=== PATIENT | female | born 1975 | race Caucasian/White ===

== ENCOUNTER → 2017-09-22 16:13 | Outpatient (CLI) | payer BC, SELFPAY ==
[2017-08-19 14:47] VITALS: BP 112/72; BMI 32.3
[2017-09-22 18:41] LABS: Estradiol 176.7 pg/mL; Free T3 2.8 pg/mL (2.18-3.98); Thyroid Stim Hormone (TSH) 3.97 uIU/mL (0.358-3.74)
[2017-09-23 11:34] LABS: Progesterone Level 4.69 ng/mL (See Comment)
[2017-09-24 10:45] LABS: DHEA Sulfate 288.8 ug/dL (57.3-279.2)
== END ==
PROVIDERS: Family Provider Family Medicine; PCP Family Medicine; Visit Provider Specialist
DX: E27.9 Disorder of adrenal gland, unspecified (principal); E28.0 Estrogen excess; E03.8 Other specified hypothyroidism
CPT/HCPCS: 36415; 82627; 82670; 84144; 84403; 84439; 84443; 84481; 82626

== ENCOUNTER 2017-10-17 21:36 | Emergency (ER) | payer BC, SELFPAY ==
[2017-10-17 21:37] VITALS: BP 132/76; PULSE 81; PULSE 87; RESP 14; RESP 17; TEMP 36.9; O2SAT 99; BMI 33.5
--- NOTE | 2017-10-17 22:20 | US_ITS ---
US Head/Neck Soft Tissue INDICATION: LOWER BACK SWELLING JUST ABOVE SURGICAL SITE...S/P MICRODISECTOMY 4 DAYS AGO COMPARISON: None TECHNIQUE: Ultrasonographic grayscale and limited Doppler investigation of the soft tissues of the lower back, midline. FINDINGS: At the area of palpable bulging, the vascular technologist sonographer measures a 3.1 x 2.4 x 1.1 cm hypoechoic area just cranial to the surgical site and a 0.8 x 0.6 x 0.6 cm smaller similar appearing lesion cranial to the first area in midline. US/Ext Non Vasc Limited/Soft Tiss IMPRESSION: Findings are suggestive of 2 small fluid collections cranial to the surgical access. These may represent subcutaneous seromas, not unusual after spine surgery, follow-up as clinically warranted at [id number] Reported and signed by: Denisha Ruth MD Electronically Signed: Denisha Ruth MD at 22:55 EST Tel , Service support ,
--- NOTE | 2017-10-17 22:23 | ED.VISSUMM ---
- ER Visit Summary Date of Service: 10/17/17 Chief Complaint: [Back pain] History of Present Illness: The patient is a 42 F [who presents the emergency department with back pain. She had a microdiscectomy done on Tuesday. She has been having severe pain and right radicular symptoms since that time. She had the back surgery performed for a left radiculopathy. She has been urinating well bowel movements have been normal no numbness or weakness. She is been feeling poorly ever since surgery nauseated and dizzy she thinks this is from the pain medicine. She has had chills mainly associated with severe pain. No fevers at home. She has had no drainage from her incision however today she noticed a tender swollen mass on the upper right side of the incision. Spoke with the on-call physician who told her to come to the emergency department if she was having severe pain.] Physical Examination: [] 132/76 other vitals within normal limits Regular rate and rhythm no murmurs clear to auscultation bilaterally Examination of the back reveals a midline incision that is clean dry and intact with no drainage she is exquisitely tender surrounding the incision diffusely there is a fullness at the right upper border of the surgery site that is exquisitely tender but not very discrete. There is no overlying erythema or warmth She is neurovascularly intact she has 5 out of 5 EHL dorsiflexion plantar flexion knee extension and hip flexion but range of motion is limited by pain she has had a positive straight leg raise on the right Test Results: [] Emergency Department Course and Treatment: [She was given morphine and Zofran for pain and nausea. She was given fluids. BMP and CBC were normal. Ultrasound the soft tissue shows a likely seroma. It does not appear to be an abscess or hemorrhage. Patient has a follow-up appointment tomorrow. I did contact on-call physician for Dr. Zana Chauhan. I have not spoken with them as yet. Patient will be discharged home to keep a follow-up appointment for tomorrow. She was given precautions for which to return. There is no evidence of infection or acute cord compression at this time.] Treatment Plan: [] Disposition: [Discharge] Impression: [1. Right radiculopathy. 2 postop pain. 3. Postop seroma] This note was generated with [employer] software. It may contain incorrect words, spelling, and punctuation that were not noted in review of the chart prior to signing ED Disposition - Plan for ED Patient: Chief Complaint: Back Referrals: Rubio Still MD [Primary Care Provider] -
[2017-10-17] MEDS: 0.9% Normal Saline 1,000 ML 1000 ML IV (22:37)
[2017-10-17] MEDS: Ondansetron 4 MG/2 ML Vial IV (22:37)
[2017-10-17 22:52] LABS: Absolute Lymphocyte Count 1.84 X10^3/ul (0.83-4.51); Absolute Neutrophil Count 3.9 X10^3/uL (2.0-7.7); Basophil# 0.01 X10^3/uL; Basophil% 0.2 % (0-1); Eosinophil# 0.05 X10^3/uL; Eosinophils% 0.8 % (0-5); Hematocrit 40.2 % (37-47); Hemoglobin 12.9 g/dl (12.0-15.0); Lymphocyte # 1.84 X10^3/ul (4.0); Lymphocyte % 29.5 % (19-41); Mean Corp Hgb Conc 32.1 g/gl (32-36); Mean Corpuscular Hgb 29.5 pg (27.0-32.0); Mean Platelet Vol. 9.2 fl (6.2-12.0); Monocyte# 0.39 X10^3/uL; Monocyte% 6.3 % (0-10); Neutrophil # 3.94 X10^3/uL (2.7-7.7); Neutrophil % 63.2 % (47-70); POSITIVE COUNT NO; POSITIVE DIFFERENTIAL NO; POSITIVE MORPHOLOGY NO; Platelet Count 278 K/mm3 (150-450); RBC Distribution Width CV 12.6 % (11.6-14.6); RBC Distribution Width SD 42.8 fl (35.1-43.9); Red Blood Count 4.37 M/mm3 (4.2-5.4); White Blood Count 6.2 K/mm3 (4.4-11.0)
[2017-10-17 23:12] LABS: Anion Gap 5 (5-15); BUN 8 mg/dL (7-18); Chloride 101 mmol/L (98-107); Creatinine, Serum 0.62 mg/dL (0.55-1.02); EST Glomerular Filtration Rate 112 mL/min (>60); Est Glom Filt Rate - Afr Amer 136 mL/min (>60); Estimated Creatinine Clearance 93.49 ml/min; Glucose 102 mg/dL (74-106); Potassium 3.8 mmol/L (3.5-5.1); Sodium Level 138 mmol/L (136-145)
--- NOTE | 2017-10-18 00:29 | ED.DEP ---
ED Disposition - Plan for ED Patient: Chief Complaint: Back Instructions: ED Sciatica, ED Seroma Post Op Referrals: Alphonso Chauhan, [NON-STAFF] - 1 Day
[2017-10-18 00:55] VITALS: BP 117/92; PULSE 78; RESP 16; O2SAT 99
== END 2017-10-18 00:55 | disposition home or self-care (01) ==
PROVIDERS: Emergency Provider Emergency Medicine; Family Provider Family Medicine; PCP Family Medicine
DX: M54.16 Radiculopathy, lumbar region (principal); G89.18 Other acute postprocedural pain; L76.34 Postprocedural seroma of skin and subcutaneous tissue following other procedure; R11.0 Nausea; M79.7 Fibromyalgia
CPT/HCPCS: 76882; 80048; 85025; 96361; 96374; 96375; 96376; 99283; J7030; A4216; J2405

== ENCOUNTER → 2017-11-25 12:28 | Outpatient (CLI) | payer BC, SELFPAY ==
[2017-11-25 14:14] LABS: Progesterone Level 19.87 ng/mL (See Comment)
[2017-11-25 14:17] LABS: Free T3 2.9 pg/mL (2.18-3.98); T4 Free Direct 1.01 ng/dL (0.76-1.46); Thyroid Stim Hormone (TSH) 1.77 uIU/mL (0.358-3.74)
[2017-11-25 14:52] LABS: Estradiol 115.7 pg/mL
[2017-11-26 08:31] LABS: DHEA Sulfate 10.8 ug/dL (57.3-279.2)
== END ==
PROVIDERS: Family Provider Family Medicine; PCP Family Medicine; Visit Provider Specialist
DX: E28.0 Estrogen excess (principal); E03.8 Other specified hypothyroidism
CPT/HCPCS: 36415; 82627; 82670; 84144; 84403; 84439; 84443; 84481; 82626

== ENCOUNTER → 2018-02-28 11:06 | Outpatient (CLI) | payer BC, SELFPAY ==
[2018-02-28 12:40] LABS: Estradiol 249.3 pg/mL; Free T3 2.9 pg/mL (2.18-3.98); T4 Free Direct 0.91 ng/dL (0.76-1.46); Thyroid Stim Hormone (TSH) 1.71 uIU/mL (0.358-3.74)
[2018-03-01 13:00] LABS: Progesterone Level 20.09 ng/mL (See Comment)
== END ==
PROVIDERS: Family Provider Family Medicine; PCP Family Medicine; Visit Provider Specialist
DX: E03.8 Other specified hypothyroidism (principal); E28.8 Other ovarian dysfunction; E27.9 Disorder of adrenal gland, unspecified
CPT/HCPCS: 36415; 82627; 82670; 84144; 84403; 84439; 84443; 84481; 82626

== ENCOUNTER → 2018-04-25 09:46 | Outpatient (CLI) | payer BC, SELFPAY ==
[2018-04-25 11:32] LABS: ALB/GLOB Ratio 0.9 RATIO (0.9-2.4); AST(SGOT) 42 U/L (15-37); Alanine Aminotransfer ALT/SGPT 79 U/L (13-56); Albumin, Serum 3.7 g/dL (3.2-5.0); Alkaline Phosphatase 80 U/L (45-117); Anion Gap 9 (5-15); BUN 17 mg/dL (7-18); Calcium,Total 8.7 mg/dL (8.5-10.1); Chloride 106 mmol/L (98-107); Cholesterol 196 mg/dL (200); Creatinine, Serum 0.66 mg/dL (0.55-1.02); EST Glomerular Filtration Rate 105 mL/min (>60); Est Glom Filt Rate - Afr Amer 127 mL/min (>60); Globulin 3.9 g/dL (2.2-4.2); Glucose 76 mg/dL (74-106); High Density Lipoprotein 48 mg/dL; Potassium 4.1 mmol/L (3.5-5.1); Protein, Total 7.6 g/dL (6.4-8.2); Sodium Level 141 mmol/L (136-145); Triglycerides 186 mg/dL; Very Low Density Lipoprotein 37 mg/dL (5-40)
[2018-04-26 12:11] LABS: Vitamin D,25 Hydroxy 31.4 ng/mL (29.95-100.01)
== END ==
PROVIDERS: Family Provider Family Medicine; PCP Family Medicine; Visit Provider Family Medicine
DX: E78.5 Hyperlipidemia, unspecified (principal); E55.9 Vitamin D deficiency, unspecified
CPT/HCPCS: 36415; 80053; 80061; 82306

== ENCOUNTER → 2018-07-11 13:12 | Outpatient (CLI) | payer BC, SELFPAY ==
[2018-07-11 14:10] LABS: Estradiol 58.3 pg/mL; Free T3 2.5 pg/mL (2.18-3.98)
[2018-07-12 10:23] LABS: DHEA Sulfate 6.9 ug/dL (57.3-279.2)
--- OUTSIDE RECORDS SUMMARY | 2018-08-23 07:02 | XMS RPT_ITS ---
:1975 External Reference #:[id number] Author Organization OHIP Care Team Providers Name Role Phone SUNITA BARCENAS Attending Unavailable SUNITA BARCENAS Referring Unavailable SUNITA BARCENAS Attending Unavailable SUNITA BARCENAS Referring Unavailable Surya Queen Attending Unavailable Rubio Still Referring Unavailable Still, Rubio Primary Care Unavailable Vernon Higgins Attending Unavailable Cheko, Rubio Primary Care Unavailable Vernon Higgins Attending Unavailable Vernon Higgins Referring Unavailable Still, Rubio Primary Care Unavailable Still, Rubio Primary Care Unavailable Ni Bustamante Attending Unavailable Vernon Higgins Attending Unavailable Vernon Higgins Referring Unavailable Still, Rubio Primary Care Unavailable Vernon Higgins Attending Unavailable Vernon Higgins Referring Unavailable Still, Rubio Primary Care Unavailable Rubio Still Attending Unavailable Still, Rubio Referring Unavailable Still, Rubio Primary Care Unavailable Sherock, Vernon Attending Unavailable Vernon Higgins Referring Unavailable Rubio Still Primary Care Unavailable PROBLEMS PROBLEMS DATE TYPE CONDITION / CODE ATTENDING STATUS SOURCE 07/11/2018 Unknown 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, 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 [facility] / E28.8(ICD-10) Hospital Repository 07/11/2018 Unknown 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, 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, [facility] unspecified / Hospital E27.9(ICD-10) Repository 07/11/2018 Unknown E03.8 - Other Shersami, Active [facility] specified [facility] hypothyroidism / Hospital E03.8(ICD-10) Repository 04/25/2018 Unknown E78.5 - Rubio Still Active [facility] Hyperlipidemia, [facility], [facility] unspecified / Hospital E78.5(ICD-10) Repository 04/25/2018 Unknown E55.9 - Vitamin D Rubio Still Active [facility] deficiency, Community unspecified / Hospital E55.9(ICD-10) Repository 03/21/2018 Active Pain, unspecified / NA Active [facility] R52(ICD-10) Clinic [facility] [place] Repository 09/07/2017 Unknown Z13.220 - Encounter oRnaldo Active Jacky for screening for [facility] lipoid disorders / Hospital Z13.220(ICD-10) Repository 09/07/2017 Unknown Z13.1 - Encounter Ronaldo, Active Ajcky for screening for [facility] diabetes mellitus / Hospital Z13.1(ICD-10) Repository PROCEDURES PROCEDURES No Procedure Records FoundRESULTS RESULTS FREE T3 Collected: 07/11/2018 Status: F Source: [place] 1:16 PM [facility] REPOSITORY TYPE CODE TESTS RESULT OUT OF RANGE REFERENCE UNITS LAB L501.85734 2.18-3.98 pg/mL Normal FREE T3 2.5 Performed By: #### L501.76097, L3300.1750 #### [facility] [address] [place], [place], [address] ESTRADIOL Collected: 07/11/2018 Status: F Source: [place] 1:16 PM [facility] REPOSITORY TYPE CODE TESTS RESULT OUT OF RANGE REFERENCE UNITS LAB L3300.1750 pg/mL Normal ESTRADIOL 58.3 Result Comment: NORMAL REFERENCE RANGES FEMALE FOLLICULAR 21.4 - 164.8 pg/mL MID-CYCLE PEAK 49.9 - 367.2 pg/mL LUTEAL 40.2 - 259.0 pg/mL POST-MENOPAUSAL ON MHT <11.0 - 462.1 pg/mL NOT ON MHT <11.0 - 58.3 pg/mL MALE <11.0 - 52.5 pg/mL NOTE: [facility] HAS CONFIRMED THE DRUG FULVETRANT (FASLODEX) MAY CAUSE FALSELY ELEVATED ESTRADIOL RESULTS WHEN USING THIS TEST METHOD. IF PATIENT IS TAKING FULVESTRANT AN ALTERNATIVE METHOD SHOULD BE USED TO DETERMINE ESTRADIOL CONCENTRATION. Performed By: #### L501.95779, L3300.1750 #### [facility] [address] [place], [place], [address] TESTOSTERONE, SERUM TOTAL Collected: 07/11/2018 Status: F Source: [place] 1:16 PM [facility] REPOSITORY TYPE CODE TESTS RESULT OUT OF REFERENCE UNITS RANGE LAB L509.3000 ng/dL Testosterone Normal 7.33 Result Comment: NORMAL REFERENCE RANGES MALE AGE <50 123.06 - 813.86 ng/dL MALE AGE >50 89.98 - 780.10 ng/dL FEMALE PREMENOPAUSE AGE 21 - 60 9.01 - 47.94 ng/dL FEMALE POSTMENOPAUSE AGE 45 - 89 <7.00 - 45.62 ng/dL REFERENCE RANGE AND METHODOLOGY CHANGED 08/03/2017 Performed By: #### L509.3000, L509.4001 #### [facility] [address] [place], [address] PROGESTERONE LEVEL Collected: 07/11/2018 Status: F Source: [place] 1:16 PM [facility] REPOSITORY TYPE CODE TESTS RESULT OUT OF REFERENCE UNITS RANGE LAB L509.4001 See Comment ng/mL Progesterone Normal 10.30 Result Comment: Progesterone Reference Table: UNITS Female: Follicular 0.15 - 1.40 ng/mL Luteal 3.34 - 25.56 ng/mL Mid-luteal 4.44 - 28.03 ng/mL Postmenopausal 0.0 - 0.73 ng/mL : 1st Trimester 11.22 - 90.00 ng/mL 2nd Trimester 25.55 - 89.40 ng/mL 3rd Trimester 48.40 -422.50 ng/mL Performed By: #### L509.3000, L509.4001 #### [facility] [address] [place], [place], [address] DHEA SULFATE Collected: 07/11/2018 Status: F Source: [place] 1:16 PM [facility] REPOSITORY Order Comment: Has Patient had Radioactive Injection for X-ray?: Y TYPE CODE TESTS RESULT OUT OF RANGE REFERENCE UNITS LAB L3300.1500 57.3-279.2 ug/dL Low DHEA SULF 6.9 4020 Result Comment: Performed at: [facility] [id number] Methods Examiner: Aaron Fields PhD, Phone: [phone] Performed By: #### L3300.1500 #### [facility] (refer to report for specific site) refer to report for address and phone number COMPREHENSIVE METABOLIC Collected: 04/25/2018 Status: F Source: [place] [facility] 9:51 AM [facility] REPOSITORY TYPE CODE TESTS RESULT OUT OF RANGE REFERENCE UNITS LAB L501.0100 74-106 mg/dL Normal GLU 76 Result Comment: Please note revised GLUCOSE reference range effective 2017. LAB L501.1000 7-18 mg/dL Normal BUN 17 LAB L501.1100 0.55-1.02 mg/dL Normal CREAT,SERUM 0.66 Result Comment: The validity of the calculated GFR AND GFRAA in patients over 70 years has not been determined. Clinical correlation is essential. LAB L501.1110 >60 mL/min Normal EST GFR 105 Result Comment: Non- GFR Calc LAB L501.1115 >60 mL/min Normal EST GFR - AA 127 Result Comment: GFR Calc LAB L501.1300 10-20 RATIO High BUN/CRE 26.0 LAB L501.1500 6.4-8.2 g/dL T Normal PROT 7.6 LAB L501.1800 3.2-5.0 g/dL Normal ALB 3.7 LAB L501.1950 2.2-4.2 g/dL Normal GLOB 3.9 LAB L501.2000 0.9-2.4 RATIO Normal A/G 0.9 LAB L501.2200 8.5-10.1 mg/dL CA Normal 8.7 LAB L501.4100 15-37 U/L High AST 42 LAB L501.4305 45-117 U/L Normal ALK P 80 LAB L501.4405 13-56 U/L High ALT 79 LAB L501.4600 0.20-1.00 mg/dL T Normal BILI 0.40 LAB L501.5300 136-145 mmol/L NA Normal 141 LAB L501.5600 3.5-5.1 mmol/L K Normal 4.1 LAB L501.5900 98-107 mmol/L CL Normal 106 LAB L501.6100 21.0-32.0 mmol/L Normal CO2 26.0 LAB L501.6200 5-15 Normal GAP 9 Performed By: #### L500.4050, L500.4100 #### [facility] [address] [place], [place], [id number] LIPID PROFILE Collected: 04/25/2018 Status: F Source: [place] 9:51 AM [facility] REPOSITORY TYPE CODE TESTS RESULT OUT OF RANGE REFERENCE UNITS LAB L501.4900 200 mg/dL Normal CHOL 196 Result Comment: <200 mg/dL Desirable 200-240 mg/dL Borderline >240 mg/dL High Risk LAB L501.5000 mg/dL Normal TRIG 186 Result Comment: The drugs N-Acetylcysteine and Metamizole may falsely depress this assay. Serum Triglycerides Reference Interval Normal <150 mg/dL Borderline high 150 - 199 mg/dL High 200 - 499 mg/dL Very High > or = 500 mg/dL LAB L501.6400 mg/dL Normal HDL 48 Result Comment: The drugs N-Acetylcysteine and Metamizole may falsely depress this assay. Reference Range HDL <40 mg/dL Low HDL Cholesterol HDL >or= 60 mg/dL High HDL Cholesterol LAB L501.6500 0-130 mg/dL Normal LDL 111 LAB L501.6600 5-40 mg/dL Normal VLDL 37 Performed By: #### L500.4050, L500.4100 #### [facility] [address] [place], [place], [id number] VITAMIN D,25 HYDROXY Collected: 04/25/2018 Status: F Source: [place] 9:51 AM [facility] REPOSITORY TYPE CODE TESTS RESULT OUT OF RANGE REFERENCE UNITS LAB L506.1000 29.95-100.01 ng/mL Normal Vitamin D 31.4 25-OH Result Comment: Vitamin D 25(OH) Status Range Deficiency <20 ng/mL (50nmol/L) Insuffciency 20 - 30 ng/mL (50 - 75 nmol/L) Sufficiency 30 - 100 ng/mL (75 - 250 nmol/L) Toxicity >100 ng/mL (>250 nmol/L) Performed By: #### L506.1000 #### [facility] [place], [address] PROGRESS Observed: 04/11/2018 Status: COMPLETED Source: [place] 8:32 PM [facility] REPOSITORY HNO ID: [id number] Author: Sunita Barcenas Service: (none) Author Type: Physician Type: Progress Notes Filed: 04/11/2018 8:35 PM Note Text: Follow up podiatric office visit for: Chief Complaint: This 43 year old who presents for follow up:right foot pain. Continues to have pain despite 2 rounds of oral steroid, use of boot and rest. States most of pain is along midfoot. PAIN EVALUATION 04/11/2018 Pain Score: 5 Pain Location: Foot-Right Description: Aching Duration Amount of Time: - ongoing Frequency: Continuous Intervention: Other: See comment boot No results found for: HBA1C PCP: Rubio Still MD PAST MEDICAL HISTORY Diagnosis Date - Anxiety - Complication of anesthesia - Constipation - Fatigue - Fibromyalgia - Hypothyroid - Insomnia - Mental disorder - Nausea - Psoriasis - Snoring Current Outpatient Prescriptions: buPROPion SR (ZYBAN SR; WELLBUTRIN SR) 150 mg 12 hr tablet Take 150 mg by mouth twice daily. ergocalciferol, vitamin D2, (DRISDOL) 50,000 unit capsule Take 5,000 Units by mouth once each week. oxyCODONE-acetaminophen (PERCOCET) 5-325 mg tablet EVERY 6 HOURS NEEDED PRN For Pain Prasterone, DHEA, 25 mg cap Take 5 mg by mouth once daily. progesterone micronized (PROMETRIUM) 100 mg capsule Take 100 mg by mouth. ALPRAZolam (XANAX) 0.5 mg tablet Take 0.5 mg by mouth at bedtime as needed. BUPROPION HCL (WELLBUTRIN ORAL) Take by mouth. Pt unsure of dose- takes BID naproxen (NAPROSYN) 500 mg tablet Take 500 mg by mouth twice daily as needed. HYDROcodone-acetaminophen (NORCO) 5-325 mg per tablet Take 1 tablet by mouth every 6 hours as needed. No current facility-administered medications for this visit. ALLERGIES Allergen Reactions - Effexor [Venlafaxin* Other: See Comments Rash (black and blue raised lumps) - Neurontin [Gabapent* GI Upset PAST SURGICAL HISTORY Procedure Laterality Date - CHOLECYSTECTOMY - PAST SURGICAL HISTORY OF 09/2013 bone spur removed from dorsal right foot - PAST SURGICAL HISTORY OF 1994 bone shaving of right foot with metal implant - PAST SURGICAL HISTORY OF left hand ganglion cyst excision Physical Exam: Constitutional: Pt is a well developed 43 year old female who is alert, oriented, cooperative and in no apparent distress. OBJECTIVE: NVSI unchanged from previous visit. Dermatological: Nails 1-5 b/l are normal. Webspaces clean and dry 1-4 b/l. Skin appears well hydrated and supple. good color, texture, turgor. No open lesions present. No callosities present. Musculoskeletal/Orthopaedic: Patient has pain to palpation of right 1st met cun joint. hypermoibilty is noted of right 1st metatarsal cun joint. ASSESSMENT: (M79.671) Right foot pain (primary encounter diagnosis) (M19.071) Arthropathy of right foot (M19.079) Arthritis of foot PLAN: 1. History and physical examination completed today. 2. Patient continues to have pain to right 1st met cun joint. She has tried boot but still has pain. 3. 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 4. Recommend ct scan for further exam of patients painful 1st met cun joint. Unable to get mri due to retained hardware. 5. Discussed possible injection of 1st met cun joint with steroid under xray guide 6. F/u after ct results ANAMARIA Wen Observed: 04/11/2018 Status: COMPLETED Source: [place] 3:55 PM [facility] REPOSITORY Office Visit (PODIWS) IVANA RAMIREZ ([id number]) 1975 F Date Time Provider Department 04/11/18 3:55 PM SUNITA BARCENAS During your visit today, we recorded the following information about you: Marlene Blanton Tanya Ma 04/11/2018 8:35 PM Signed AMB ROOMING INTAKE FLOWSHEET DATA Risk Screening Do you have concerns about personal safety or safety in the home?: No Pain Pain Score: 5/10 Pain Location: Foot-Right Description: Aching Duration Amount of Time: (ongoing) Frequency: Continuous Intervention: Other: See comment (boot) Griselda Le RN 04/11/2018 3:[address] Our office will contact you with the results. Sunita Barcenas DPM 04/11/2018 8:35 PM Signed Follow up podiatric office visit for: Chief Complaint: This 43 year old who presents for follow up:right foot pain. Continues to have pain despite 2 rounds of oral steroid, use of boot and rest. States most of pain is along midfoot. PAIN EVALUATION 04/11/2018 Pain Score: 5 Pain Location: Foot-Right Description: Aching Duration Amount of Time: - ongoing Frequency: Continuous Intervention: Other: See comment boot No results found for: HBA1C PCP: Rubio Still MD PAST MEDICAL HISTORY Diagnosis Date - Anxiety - Complication of anesthesia - Constipation - Fatigue - Fibromyalgia - Hypothyroid - Insomnia - Mental disorder - Nausea - Psoriasis - Snoring Current Outpatient Prescriptions: buPROPion SR (ZYBAN SR; WELLBUTRIN SR) 150 mg 12 hr tablet Take 150 mg by mouth twice daily. ergocalciferol, vitamin D2, (DRISDOL) 50,000 unit capsule Take 5,000 Units by mouth once each week. oxyCODONE-acetaminophen (PERCOCET) 5-325 mg tablet EVERY 6 HOURS NEEDED PRN For Pain Prasterone, DHEA, 25 mg cap Take 5 mg by mouth once daily. progesterone micronized (PROMETRIUM) 100 mg capsule Take 100 mg by mouth. ALPRAZolam (XANAX) 0.5 mg tablet Take 0.5 mg by mouth at bedtime as needed. BUPROPION HCL (WELLBUTRIN ORAL) Take by mouth. Pt unsure of dose- takes BID naproxen (NAPROSYN) 500 mg tablet Take 500 mg by mouth twice daily as needed. HYDROcodone-acetaminophen (NORCO) 5-325 mg per tablet Take 1 tablet by mouth every 6 hours as needed. No current facility-administered medications for this visit. ALLERGIES Allergen Reactions - Effexor [Venlafaxin* Other: See Comments Rash (black and blue raised lumps) - Neurontin [Gabapent* GI Upset PAST SURGICAL HISTORY Procedure Laterality Date - CHOLECYSTECTOMY - PAST SURGICAL HISTORY OF 09/2013 bone spur removed from dorsal right foot - PAST SURGICAL HISTORY OF 1994 bone shaving of right foot with metal implant - PAST SURGICAL HISTORY OF left hand ganglion cyst excision Physical Exam: Constitutional: Pt is a well developed 43 year old female who is alert, oriented, cooperative and in no apparent distress. OBJECTIVE: NVSI unchanged from previous visit. Dermatological: Nails 1-5 b/l are normal. Webspaces clean and dry 1-4 b/l. Skin appears well hydrated and supple. good color, texture, turgor. No open lesions present. No callosities present. Musculoskeletal/Orthopaedic: Patient has pain to palpation of right 1st met cun joint. hypermoibilty is noted of right 1st metatarsal cun joint. ASSESSMENT: (M79.671) Right foot pain (primary encounter diagnosis) (M19.071) Arthropathy of right foot (M19.079) Arthritis of foot PLAN: 1. History and physical examination completed today. 2. Patient continues to have pain to right 1st met cun joint. She has tried boot but still has pain. 3. 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 4. Recommend ct scan for further exam of patients painful 1st met cun joint. Unable to get mri due to retained hardware. 5. Discussed possible injection of 1st met cun joint with steroid under xray guide 6. F/u after ct results Valeria Waldron DPM Referring Provider: SUNITA BARCENAS [[id number]] Allergies As of Date: 04/11/2018 Noted Allergy Reaction EFFEXOR (VENLAFAXINE) 05/07/2014 14 - Other: See Comments Comments: Rash (black and blue raised lumps) NEURONTIN (GABAPENTIN) 05/07/2014 8 - GI Upset Date Reviewed: 04/11/2018 Reviewed by: Marlene Martínez Ma - Fully Assessed Reason for Visit: Established Patient [175] Cmt: 3 week follow up right plantar fasciitis Primary Visit Diagnosis:Right foot pain [M79.671] Other Visit Diagnoses:Arthropathy of right foot [M19.071] Arthritis of foot [M19.079] Order(s):CT FOOT WO IVCON RT [[id number]] Order #: [id number] FUTURE Prescriptions as of 04/11/2018 Sig: BUPROPION HCL SR 150 MG TABLE* Take 150 mg by mouth twice da* ERGOCALCIFEROL (VITAMIN D2) 5* Take 5,000 Units by mouth onc* OXYCODONE-ACETAMINOPHEN 5 MG-* EVERY 6 HOURS NEEDED PRN F* PRASTERONE (DHEA) 25 MG CAPSU* Take 5 mg by mouth once daily. PROGESTERONE MICRONIZED 100 M* Take 100 mg by mouth. ALPRAZOLAM 0.5 MG TABLET Take 0.5 mg by mouth at bedti* WELLBUTRIN ORAL Take by mouth. Pt unsure of * NAPROXEN 500 MG TABLET Take 500 mg by mouth twice da* HYDROCODONE 5 MG-ACETAMINOPHE* Take 1 tablet by mouth every * Problem List As Of Date: 04/11/2018 (None) Other instructions from your clinician: Schedule CT. Our office will contact you with the results. Encounter Status:Closed by SUNITA BARCENAS DPM on 04/11/18 PROGRESS Observed: 04/11/2018 Status: COMPLETED Source: [place] 3:39 PM [facility] REPOSITORY HNO ID: [id number] Author: Marlene Martínez Ma Service: (none) Author Type: (none) Type: Progress Notes Filed: 04/11/2018 8:35 PM Note Text: AMB ROOMING INTAKE FLOWSHEET DATA Risk Screening Do you have concerns about personal safety or safety in the home?: No Pain Pain Score: 5/10 Pain Location: Foot-Right Description: Aching Duration Amount of Time: (ongoing) Frequency: Continuous Intervention: Other: See comment (boot) CNOV Observed: 03/21/2018 Status: COMPLETED Source: [place] 2:55 PM [facility] REPOSITORY Office Visit (PODIWS) IVANA RAMIREZ ([id number]) 1975 F Date Time Provider Department 03/21/18 2:55 PM SUNITA BARCENAS During your visit today, we recorded the following information about you: Sunita Barcenas DPM 03/21/2018 3:04 PM Signed ? Sunita Barcenas DPM Department of Podiatry [address] [facility] [address] Dept: [phone] Dept 03/21/2018 Initial Podiatric Office Visit: HPI: Ivana Ramirez is a 43 year old female. Patient presents with R foot pain/swelling. Patient reports constant 5/10 achy pain to R foot with intermittent throbbing. Worse with walking. Reports taking hydrocodone with no relief. Reports that symptoms have worsened since back surgery in October 2017. Hx of R foot surgery in 1994 and 2013. Patient denies being diabetic and she is not a smoker. PCP: Rubio Still MD PAST MEDICAL HISTORY Diagnosis Date - Anxiety - Complication of anesthesia - Constipation - Fatigue - Fibromyalgia - Hypothyroid - Insomnia - Mental disorder - Nausea - Psoriasis - Snoring Current Outpatient Prescriptions: oxyCODONE-acetaminophen (PERCOCET) 5-325 mg tablet EVERY 6 HOURS NEEDED PRN For Pain buPROPion SR (ZYBAN SR; WELLBUTRIN SR) 150 mg 12 hr tablet Take 150 mg by mouth twice daily. ergocalciferol, vitamin D2, (DRISDOL) 50,000 unit capsule Take 5,000 Units by mouth once each week. Prasterone, DHEA, 25 mg cap Take 5 mg by mouth once daily. progesterone micronized (PROMETRIUM) 100 mg capsule Take 100 mg by mouth. ALPRAZolam (XANAX) 0.5 mg tablet Take 0.5 mg by mouth at bedtime as needed. BUPROPION HCL (WELLBUTRIN ORAL) Take by mouth. Pt unsure of dose- takes BID naproxen (NAPROSYN) 500 mg tablet Take 500 mg by mouth twice daily as needed. HYDROcodone-acetaminophen (NORCO) 5-325 mg per tablet Take 1 tablet by mouth every 6 hours as needed. No current facility-administered medications for this visit. ALLERGIES Allergen Reactions - Effexor [Venlafaxin* Other: See Comments Rash (black and blue raised lumps) - Neurontin [Gabapent* GI Upset PAST SURGICAL HISTORY Procedure Laterality Date - CHOLECYSTECTOMY - PAST SURGICAL HISTORY OF 09/2013 bone spur removed from dorsal right foot - PAST SURGICAL HISTORY OF 1994 bone shaving of right foot with metal implant - PAST SURGICAL HISTORY OF left hand ganglion cyst excision FAMILY HISTORY Problem Relation Age of Onset - high cholesterol [OTHER] Mother - Arthritis Paternal Grandfather Social History Marital status: Spouse name: Years of education: Number of children: Social History Main Topics Smoking status: Never Smoker Smokeless tobacco: Never Used Alcohol use: No Drug use: No REVIEW OF SYSTEMS: CONSTITUTIONAL: No fevers, chills, nightsweats, unintended weight loss HEENT: Denies frequent or severe heaches, nasal congestion/sinus symptoms, problematic allergy problems. EYES: No diplopia or blurry vision. CARDIOVASCULAR: No chest pain, dyspnea, palpitations, orthopnea, PND, ankle edema. PULM: No dyspnea, unexplained cough. GI: No dysphagia/odynophagia, problematic reflux, constipation, diarrhea, changes in stool habits, hematochezia, melena. : No new urinary complaints, including dysuria, gross hematuria or pyuria. NEURO: No new balance problems, peripheral weakness/paresthesias or numbness of concern. MUSC-SKEL: Right foot pain PSY: No concerns regarding depression, anxiety or panic. INTEGUMENTARY: No new skin changes (rash, new or changing mole, new growth) Physical Exam: Constitutional: Pt is a well developed 43 year old female who is alert, oriented and cooperative Eyes: Following during examination. No redness or drainage. Respiratory: RR normal and nonlabored. Even breathing. No evidence of distress or shortness of breath. Psychology: Patient is engaged during conversation. Normal affect and mood. Does not appear depressed or anxious during encounter. Vascular: Dorsalis pedis and posterior tibial pulses palpable as b/l Capillary Fill time < 5 seconds to digits 1-5 b/l Skin temperature warm to warm proximal to distal b/l Hair growth present to digits Neurological: intact light touch/epicritic sensation - tinel b/l Dermatological: Nails 1-5 b/l appear Normal. Webspaces clean and dry 1-4 b/l. Skin appears well hydrated and supple. good color, texture, turgor. Callosities absent.Open lesions absent. Wound: Not present. Musculoskeletal/Orthopaedic: Patient has pain to palpation of right dorsal 1st met cun joint and medial band of plantar fascia There is hypermobile first ray b/l Foot type is neutral structurally AJ ROM is full with knee extended and flexed 1st MPJ is full when loaded and no pain or crepitus are noted with ROM. MTJ, STJ are full and free of pain and crepitus. +5/5 muscle strength dorsiflexion, plantarflexion, inversion, eversion b/l Radiographs: 3 views of right foot reviewed. There are 2 k-wires along distal 1st metatarsal ASSESSMENT: (M79.671) Right foot pain (primary encounter diagnosis) (M72.2) Plantar fasciitis of right foot PLAN: Discussed right foot pain. Most of her pain is along dorsal 1st met cun joint. She has tried pain medication and icing. She has been on two rounds of oral steroid. Will place her in boot for short duration to see if this helps with her pain. Discussed pain along medial band of plantar fascia. Discussed icing, stretching, future use of inserts and physical therapy. Because of her pain dorsally that is more severe than plantar pain, will place her in boot. f/u in 3 weeks Sunita Barcenas DPM Referring Provider: SELF [[id number]] Allergies As of Date: 03/21/2018 Noted Allergy Reaction EFFEXOR (VENLAFAXINE) 05/07/2014 14 - Other: See Comments Comments: Rash (black and blue raised lumps) NEURONTIN (GABAPENTIN) 05/07/2014 8 - GI Upset Date Reviewed: 03/21/2018 Reviewed by: Alona Pena Ma - Fully Assessed Reason for Visit: Pain (foot) [760] Primary Visit Diagnosis:Right foot pain [M79.671] Other Visit Diagnosis:Plantar fasciitis of right foot [M72.2] Prescriptions as of 03/21/2018 Sig: OXYCODONE-ACETAMINOPHEN 5 MG-* EVERY 6 HOURS NEEDED PRN F* BUPROPION HCL SR 150 MG TABLE* Take 150 mg by mouth twice da* ERGOCALCIFEROL (VITAMIN D2) 5* Take 5,000 Units by mouth onc* PRASTERONE (DHEA) 25 MG CAPSU* Take 5 mg by mouth once daily. PROGESTERONE MICRONIZED 100 M* Take 100 mg by mouth. ALPRAZOLAM 0.5 MG TABLET Take 0.5 mg by mouth at bedti* WELLBUTRIN ORAL Take by mouth. Pt unsure of * NAPROXEN 500 MG TABLET Take 500 mg by mouth twice da* HYDROCODONE 5 MG-ACETAMINOPHE* Take 1 tablet by mouth every * Problem List As Of Date: 03/21/2018 (None) Encounter Status:Closed by SUNITA BARCENAS DPM on 03/21/18 PROGRESS Observed: 03/21/2018 Status: COMPLETED Source: [place] 2:43 PM [facility] REPOSITORY HNO ID: [id number] Author: Sunita Barcenas Service: (none) Author Type: Physician Type: Progress Notes Filed: 03/21/2018 3:04 PM Note Text: ? Sunita Barcenas DPM Department of Podiatry [address] [place] [id number] Dept: [phone] Dept 03/21/2018 Initial Podiatric Office Visit: HPI: Ivana Ramirez is a 43 year old female. Patient presents with R foot pain/swelling. Patient reports constant 5/10 achy pain to R foot with intermittent throbbing. Worse with walking. Reports taking hydrocodone with no relief. Reports that symptoms have worsened since back surgery in October 2017. Hx of R foot surgery in 1994 and 2013. Patient denies being diabetic and she is not a smoker. PCP: Rubio Still MD PAST MEDICAL HISTORY Diagnosis Date - Anxiety - Complication of anesthesia - Constipation - Fatigue - Fibromyalgia - Hypothyroid - Insomnia - Mental disorder - Nausea - Psoriasis - Snoring Current Outpatient Prescriptions: oxyCODONE-acetaminophen (PERCOCET) 5-325 mg tablet EVERY 6 HOURS NEEDED PRN For Pain buPROPion SR (ZYBAN SR; WELLBUTRIN SR) 150 mg 12 hr tablet Take 150 mg by mouth twice daily. ergocalciferol, vitamin D2, (DRISDOL) 50,000 unit capsule Take 5,000 Units by mouth once each week. Prasterone, DHEA, 25 mg cap Take 5 mg by mouth once daily. progesterone micronized (PROMETRIUM) 100 mg capsule Take 100 mg by mouth. ALPRAZolam (XANAX) 0.5 mg tablet Take 0.5 mg by mouth at bedtime as needed. BUPROPION HCL (WELLBUTRIN ORAL) Take by mouth. Pt unsure of dose- takes BID naproxen (NAPROSYN) 500 mg tablet Take 500 mg by mouth twice daily as needed. HYDROcodone-acetaminophen (NORCO) 5-325 mg per tablet Take 1 tablet by mouth every 6 hours as needed. No current facility-administered medications for this visit. ALLERGIES Allergen Reactions - Effexor [Venlafaxin* Other: See Comments Rash (black and blue raised lumps) - Neurontin [Gabapent* GI Upset PAST SURGICAL HISTORY Procedure Laterality Date - CHOLECYSTECTOMY - PAST SURGICAL HISTORY OF 09/2013 bone spur removed from dorsal right foot - PAST SURGICAL HISTORY OF 1994 bone shaving of right foot with metal implant - PAST SURGICAL HISTORY OF left hand ganglion cyst excision FAMILY HISTORY Problem Relation Age of Onset - high cholesterol [OTHER] Mother - Arthritis Paternal Grandfather Social History Marital status: Spouse name: Years of education: Number of children: Social History Main Topics Smoking status: Never Smoker Smokeless tobacco: Never Used Alcohol use: No Drug use: No REVIEW OF SYSTEMS: CONSTITUTIONAL: No fevers, chills, nightsweats, unintended weight loss HEENT: Denies frequent or severe heaches, nasal congestion/sinus symptoms, problematic allergy problems. EYES: No diplopia or blurry vision. CARDIOVASCULAR: No chest pain, dyspnea, palpitations, orthopnea, PND, ankle edema. PULM: No dyspnea, unexplained cough. GI: No dysphagia/odynophagia, problematic reflux, constipation, diarrhea, changes in stool habits, hematochezia, melena. : No new urinary complaints, including dysuria, gross hematuria or pyuria. NEURO: No new balance problems, peripheral weakness/paresthesias or numbness of concern. MUSC-SKEL: Right foot pain PSY: No concerns regarding depression, anxiety or panic. INTEGUMENTARY: No new skin changes (rash, new or changing mole, new growth) Physical Exam: Constitutional: Pt is a well developed 43 year old female who is alert, oriented and cooperative Eyes: Following during examination. No redness or drainage. Respiratory: RR normal and nonlabored. Even breathing. No evidence of distress or shortness of breath. Psychology: Patient is engaged during conversation. Normal affect and mood. Does not appear depressed or anxious during encounter. Vascular: Dorsalis pedis and posterior tibial pulses palpable as b/l Capillary Fill time < 5 seconds to digits 1-5 b/l Skin temperature warm to warm proximal to distal b/l Hair growth present to digits Neurological: intact light touch/epicritic sensation - tinel b/l Dermatological: Nails 1-5 b/l appear Normal. Webspaces clean and dry 1-4 b/l. Skin appears well hydrated and supple. good color, texture, turgor. Callosities absent.Open lesions absent. Wound: Not present. Musculoskeletal/Orthopaedic: Patient has pain to palpation of right dorsal 1st met cun joint and medial band of plantar fascia There is hypermobile first ray b/l Foot type is neutral structurally AJ ROM is full with knee extended and flexed 1st MPJ is full when loaded and no pain or crepitus are noted with ROM. MTJ, STJ are full and free of pain and crepitus. +5/5 muscle strength dorsiflexion, plantarflexion, inversion, eversion b/l Radiographs: 3 views of right foot reviewed. There are 2 k-wires along distal 1st metatarsal ASSESSMENT: (M79.671) Right foot pain (primary encounter diagnosis) (M72.2) Plantar fasciitis of right foot PLAN: Discussed right foot pain. Most of her pain is along dorsal 1st met cun joint. She has tried pain medication and icing. She has been on two rounds of oral steroid. Will place her in boot for short duration to see if this helps with her pain. Discussed pain along medial band of plantar fascia. Discussed icing, stretching, future use of inserts and physical therapy. Because of her pain dorsally that is more severe than plantar pain, will place her in boot. f/u in 3 weeks Sunita Barcenas DPM XR FOOT 3V AP/LAT/OBL Observed: 03/21/2018 Status: F Source: [place] RT 2:22 PM [facility] REPOSITORY * * *Final Report* * * DATE OF EXAM: Mar 21 2018 2:22PM SELENE 5337 - XR FOOT 3V AP/LAT/OBL RT / PROCEDURE REASON: Pain, unspecified * * * * Physician Interpretation * * * * EXAMINATION: XR FOOT 3V AP/LAT/OBL RT CLINICAL HISTORY: pain and grinding noise in the arch of the right foot. previous surgeries. Pain, unspecified Technique: XR FOOT 3V AP/LAT/OBL RT -- RIGHT foot with 3 views on 3 images Comparison: 06/23/2016 RESULT: Postsurgical changes first metatarsal osteotomy with pins in the fifth metatarsal head are unchanged in position alignment. No evidence of hardware failure or loosening. No fracture or dislocation. Joint spaces are maintained. No focal soft tissue swelling. IMPRESSION: Postsurgical changes without apparent complication right foot. Client Account Representative: PSCB Transcribe Date/Time: Mar 21 2018 4:46P Dictated by : JOSE ANTONIO CORCORAN MD This examination was interpreted and the report reviewed and electronically signed by: JOSE ANTONIO CORCORAN MD on Mar 21 2018 4:50PM EST [id number] PROGRESS Observed: 03/21/2018 Status: COMPLETED Source: [place] 2:16 PM [facility] REPOSITORY HNO ID: [id number] Author: Christy (Rt) Dulce Chauhan Service: (none) Author Type: [employer] Licensee Type: Progress Notes Filed: 03/21/2018 2:23 PM Note Text: Radiology Service Progress Note PATIENT NAME: Ivana Ramirez DATE OF SERVICE: March 21, 2018 TIME: 2:16 PM PATIENT IDENTITY VERIFICATION COMPLETED USING TWO (2) METHODS: Patient confirmed name verbally and Date of . PATIENT GENDER DATA: Female. status: : No status: NO. PATIENT RELEVANT IMPLANT DATA REVIEWED: Not Applicable RADIOLOGY DEPARTMENT: General X-ray: Exam(s) Completed: Lower Extremity X-Ray(s): Foot, Right and Wt. Bearing: PERIPHERAL IV DATA: Not applicable SIGNED BY: RT Arnie March 21, 2018 2:16 PM FREE T3 Collected: 02/28/2018 Status: F Source: [place] 11:13 AM [facility] REPOSITORY TYPE CODE TESTS RESULT OUT OF RANGE REFERENCE UNITS LAB L501.10972 2.18-3.98 pg/mL Normal FREE T3 2.9 Performed By: #### L501.87752, L501.9520, L506.0400, L3300.1750 #### [facility] [address] [place], [address] THYROID STIM HORMONE Collected: 02/28/2018 Status: F Source: [place] (TSH) 11:13 AM [facility] REPOSITORY TYPE CODE TESTS RESULT OUT OF RANGE REFERENCE UNITS LAB L501.9520 0.358-3.74 uIU/mL Normal TSH 1.71 Performed By: #### L501.67906, L501.9520, L506.0400, L3300.1750 #### [facility] [address] [place], [address] T4 FREE DIRECT Collected: 02/28/2018 Status: F Source: [place] 11:13 AM [facility] REPOSITORY TYPE CODE TESTS RESULT OUT OF RANGE REFERENCE UNITS LAB L506.0400 0.76-1.46 ng/dL Normal T4 FREE 0.91 DIRECT Performed By: #### L501.82405, L501.9520, L506.0400, L3300.1750 #### [facility] [address] [place], [address] ESTRADIOL Collected: 02/28/2018 Status: F Source: [place] 11:13 AM [facility] REPOSITORY TYPE CODE TESTS RESULT OUT OF RANGE REFERENCE UNITS LAB L3300.1750 pg/mL Normal ESTRADIOL 249.3 Result Comment: NORMAL REFERENCE RANGES FEMALE FOLLICULAR 21.4 - 164.8 pg/mL MID-CYCLE PEAK 49.9 - 367.2 pg/mL LUTEAL 40.2 - 259.0 pg/mL POST-MENOPAUSAL ON MHT <11.0 - 462.1 pg/mL NOT ON MHT <11.0 - 58.3 pg/mL MALE <11.0 - 52.5 pg/mL NOTE: [facility] HAS CONFIRMED THE DRUG FULVETRANT (FASLODEX) MAY CAUSE FALSELY ELEVATED ESTRADIOL RESULTS WHEN USING THIS TEST METHOD. IF PATIENT IS TAKING FULVESTRANT AN ALTERNATIVE METHOD SHOULD BE USED TO DETERMINE ESTRADIOL CONCENTRATION. Performed By: #### L501.41695, L501.9520, L506.0400, L3300.1750 #### [facility] [address] [place], [place], [address] DHEA SULFATE Collected: 02/28/2018 Status: F Source: [place] 11:13 AM [facility] REPOSITORY Order Comment: Has Patient had Radioactive Injection for X-ray?: N TYPE CODE TESTS RESULT OUT OF RANGE REFERENCE UNITS LAB L3300.1500 57.3-279.2 ug/dL Normal DHEA SULF 135.0 4020 Result Comment: Performed at: [facility] [id number] Methods Examiner: Aaron Fields PhD, Phone: [phone] Performed By: #### L3300.1500 #### [facility] (refer to report for specific site) refer to report for address and phone number TESTOSTERONE, SERUM TOTAL Collected: 02/28/2018 Status: F Source: [place] 11:13 AM [facility] REPOSITORY TYPE CODE TESTS RESULT OUT OF REFERENCE UNITS RANGE LAB L509.3000 ng/dL Testosterone Normal 18.74 Result Comment: NORMAL REFERENCE RANGES MALE AGE <50 123.06 - 813.86 ng/dL MALE AGE >50 89.98 - 780.10 ng/dL FEMALE PREMENOPAUSE AGE 21 - 60 9.01 - 47.94 ng/dL FEMALE POSTMENOPAUSE AGE 45 - 89 <7.00 - 45.62 ng/dL REFERENCE RANGE AND METHODOLOGY CHANGED 08/03/2017 Performed By: #### L509.3000, L509.4001 #### [facility] [address] [place], [place], [address] PROGESTERONE LEVEL Collected: 02/28/2018 Status: F Source: [place] 11:13 AM [facility] REPOSITORY TYPE CODE TESTS RESULT OUT OF REFERENCE UNITS RANGE LAB L509.4001 See Comment ng/mL Progesterone Normal 20.09 Result Comment: Progesterone Reference Table: UNITS Female: Follicular 0.15 - 1.40 ng/mL Luteal 3.34 - 25.56 ng/mL Mid-luteal 4.44 - 28.03 ng/mL Postmenopausal 0.0 - 0.73 ng/mL : 1st Trimester 11.22 - 90.00 ng/mL 2nd Trimester 25.55 - 89.40 ng/mL 3rd Trimester 48.40 -422.50 ng/mL Performed By: #### L509.3000, L509.4001 #### [facility] [address] [place], [address] TESTOSTERONE, SERUM TOTAL Collected: 11/25/2017 Status: F Source: [place] 12:35 PM [facility] REPOSITORY TYPE CODE TESTS RESULT OUT OF REFERENCE UNITS RANGE LAB L509.3000 ng/dL Testosterone Normal 7.22 Result Comment: NORMAL REFERENCE RANGES MALE AGE <50 123.06 - 813.86 ng/dL MALE AGE >50 89.98 - 780.10 ng/dL FEMALE PREMENOPAUSE AGE 21 - 60 9.01 - 47.94 ng/dL FEMALE POSTMENOPAUSE AGE 45 - 89 <7.00 - 45.62 ng/dL REFERENCE RANGE AND METHODOLOGY CHANGED 08/03/2017 Performed By: #### L509.3000, L509.4001 #### [facility] [address] [place], [address] PROGESTERONE LEVEL Collected: 11/25/2017 Status: F Source: [place] 12:35 [facility] REPOSITORY TYPE CODE TESTS RESULT OUT OF REFERENCE UNITS RANGE LAB L509.4001 See Comment ng/mL Progesterone Normal 19.87 Result Comment: Progesterone Reference Table: UNITS Female: Follicular 0.15 - 1.40 ng/mL Luteal 3.34 - 25.56 ng/mL Mid-luteal 4.44 - 28.03 ng/mL Postmenopausal 0.0 - 0.73 ng/mL : 1st Trimester 11.22 - 90.00 ng/mL 2nd Trimester 25.55 - 89.40 ng/mL 3rd Trimester 48.40 -422.50 ng/mL Performed By: #### L509.3000, L509.4001 #### [facility] [address] [place], [address] FREE T3 Collected: 11/25/2017 Status: F Source: [place] 12:35 PM [facility] REPOSITORY TYPE CODE TESTS RESULT OUT OF RANGE REFERENCE UNITS LAB L501.48339 2.18-3.98 pg/mL Normal FREE T3 2.9 Performed By: #### L501.83165, L501.9520, L506.0400, L3300.1750 #### [facility] [address] [place], [address] THYROID STIM HORMONE Collected: 11/25/2017 Status: F Source: [place] (TSH) 12:35 PM [facility] REPOSITORY TYPE CODE TESTS RESULT OUT OF RANGE REFERENCE UNITS LAB L501.9520 0.358-3.74 uIU/mL Normal TSH 1.77 Performed By: #### L501.77763, L501.9520, L506.0400, L3300.1750 #### [facility] [address] [place], [address] T4 FREE DIRECT Collected: 11/25/2017 Status: F Source: [place] 12:35 PM [facility] REPOSITORY TYPE CODE TESTS RESULT OUT OF RANGE REFERENCE UNITS LAB L506.0400 0.76-1.46 ng/dL Normal T4 FREE 1.01 DIRECT Performed By: #### L501.72651, L501.9520, L506.0400, L3300.1750 #### [facility] [address] [place], [address] ESTRADIOL Collected: 11/25/2017 Status: F Source: [place] 12:35 PM [facility] REPOSITORY TYPE CODE TESTS RESULT OUT OF RANGE REFERENCE UNITS LAB L3300.1750 pg/mL Normal ESTRADIOL 115.7 Result Comment: NORMAL REFERENCE RANGES FEMALE FOLLICULAR 21.4 - 164.8 pg/mL MID-CYCLE PEAK 49.9 - 367.2 pg/mL LUTEAL 40.2 - 259.0 pg/mL POST-MENOPAUSAL ON MHT <11.0 - 462.1 pg/mL NOT ON MHT <11.0 - 58.3 pg/mL MALE <11.0 - 52.5 pg/mL NOTE: [facility] HAS CONFIRMED THE DRUG FULVETRANT (FASLODEX) MAY CAUSE FALSELY ELEVATED ESTRADIOL RESULTS WHEN USING THIS TEST METHOD. IF PATIENT IS TAKING FULVESTRANT AN ALTERNATIVE METHOD SHOULD BE USED TO DETERMINE ESTRADIOL CONCENTRATION. Performed By: #### L501.54727, L501.9520, L506.0400, L3300.1750 #### [facility] [address] [place], [address] DHEA SULFATE Collected: 11/25/2017 Status: F Source: [place] 12:35 PM [facility] REPOSITORY Order Comment: Has Patient had Radioactive Injection for X-ray?: N TYPE CODE TESTS RESULT OUT OF RANGE REFERENCE UNITS LAB L3300.1500 57.3-279.2 ug/dL Low DHEA SULF 10.8 4020 Result Comment: Performed at: - [facility] [id number] Methods Examiner: Aaron Fields PhD, Phone: [phone] Performed By: #### L3300.1500 #### [facility] (refer to report for specific site) refer to report for address and phone number DISCHARGE INSTRUCTION Observed: 10/18/2017 Status: F Source: [place] 12:40 AM [facility] REPOSITORY [facility] Medical Records Department [address] [place] [address] Discharge Instruction 10/18/17 0029 MR#: [id number] Acct: [id number] Name: IVANA RAMIREZ Rep #: [id number] : 1975 42 From: Ni Bustamante PCP: Rubio Still MD Status: REG ER ED Disposition - Plan for ED Patient: Chief Complaint: Back Instructions: ED Sciatica, ED Seroma Post Op Referrals: Alphonso Chauhan, DO [NON-STAFF] - 1 Day What to do if you have Problems For any increased pain, shortness of breath, bleeding, nausea or vomiting, chest pain, or any unexpected problems, contact your Primary Care Provider. Call [facility] ([phone]) or report to the closest Emergency Room. Call 911 if necessary. 10/18/17 0040 <Electronically signed by Ni Bustamante > Date Ni Bustamante Cosignmeliza Signature (If Indicated): Date CC: Rubio Still MD EMERGENCY DEPARTMENT Observed: 10/18/2017 Status: F Source: [place] SUMMARY 12:29 AM [facility] REPOSITORY [facility] Medical Records Department [address] [place] [address] Emergency Department Summary 10/17/17 2223 MR#: [id number] Acct: [id number] Name: IVANA RAMIREZ Rep #: [id number] : 1975 42 From: Ni Bustamante PCP: Rubio Still MD Status: REG ER - ER Visit Summary Date of Service: 10/17/17 Chief Complaint: [Back pain] History of Present Illness: The patient is a 42 F [who presents the emergency department with back pain. She had a microdiscectomy done on Tuesday. She has been having severe pain and right radicular symptoms since that time. She had the back surgery performed for a left radiculopathy. She has been urinating well bowel movements have been normal no numbness or weakness. She is been feeling poorly ever since surgery nauseated and dizzy she thinks this is from the pain medicine. She has had chills mainly associated with severe pain. No fevers at home. She has had no drainage from her incision however today she noticed a tender swollen mass on the upper right side of the incision. Spoke with the on-call physician who told her to come to the emergency department if she was having severe pain.] Physical Examination: [] 132/76 other vitals within normal limits Regular rate and rhythm no murmurs clear to auscultation bilaterally Examination of the back reveals a midline incision that is clean dry and intact with no drainage she is exquisitely tender surrounding the incision diffusely there is a fullness at the right upper border of the surgery site that is exquisitely tender but not very discrete. There is no overlying erythema or warmth She is neurovascularly intact she has 5 out of 5 EHL dorsiflexion plantar flexion knee extension and hip flexion but range of motion is limited by pain she has had a positive straight leg raise on the right Test Results: [] Emergency Department Course and Treatment: [She was given morphine and Zofran for pain and nausea. She was given fluids. BMP and CBC were normal. Ultrasound the soft tissue shows a likely seroma. It does not appear to be an abscess or hemorrhage. Patient has a follow-up appointment tomorrow. I did contact on-call physician for Dr. Zana Chauhan. I have not spoken with them as yet. Patient will be discharged home to keep a follow-up appointment for tomorrow. She was given precautions for which to return. There is no evidence of infection or acute cord compression at this time.] Treatment Plan: [] Disposition: [Discharge] Impression: [1. Right radiculopathy. 2 postop pain. 3. Postop seroma] This note was generated with [employer] dictation software. It may contain incorrect words, spelling, and punctuation that were not noted in review of the chart prior to signing ED Disposition - Plan for ED Patient: Chief Complaint: Back Referrals: Rubio Still MD [Primary Care Provider] - What to do if you have Problems For any increased pain, shortness of breath, bleeding, nausea or vomiting, chest pain, or any unexpected problems, contact your Primary Care Provider. Call [facility] ([phone]) or report to the closest Emergency Room. Call 911 if necessary. 10/18/17 0029 <Electronically signed by Ni Bustamante > Date Ni Bustamante Cosigner Signature (If Indicated): Date CC: Rubio Still MD CBC W/DIFF, AUTOMATED Collected: 10/17/2017 Status: F Source: [place] 10:42 PM [facility] REPOSITORY TYPE CODE TESTS RESULT OUT OF RANGE REFERENCE UNITS LAB L100.1000 4.4-11.0 K/mm3 Normal WBC 6.2 LAB L100.1200 4.2-5.4 M/mm3 Normal RBC 4.37 LAB L100.1300 12.0-15.0 g/dl Normal HGB 12.9 LAB L100.1400 37-47 % Normal HCT 40.2 LAB L100.1500 81-99 fL Normal MCV 92.0 LAB L100.1600 27.0-32.0 pg Normal MCH 29.5 LAB L100.1700 32-36 g/gl Normal MCHC 32.1 LAB L100.1810 11.6-14.6 % Normal RDW CV 12.6 LAB L100.1820 35.1-43.9 fl Normal RDW SD 42.8 LAB L100.1900 150-450 K/mm3 Normal PLT 278 LAB L100.2000 6.2-12.0 fl Normal MPV 9.2 LAB L100.2100 47-70 % Normal NEUT% 63.2 LAB L100.2200 19-41 % Normal LY% 29.5 LAB L100.2300 0-10 % Normal MONO% 6.3 LAB L100.2400 0-5 % Normal EO% 0.8 LAB L100.2500 0-1 % Normal BASO% 0.2 LAB L100.2550 0.0-0.9 % Normal IM GRAN % 0.000 Result Comment: IG% - Immature Granulocytes (promyelocytes, myelocytes and metamyelocytes) > 1% indicates that a LEFT SHIFT is Present. LAB L100.2620 2.0-7.7 X10 3/uL Normal Absolute Neut 3.9 LAB L100.2720 0.83-4.51 X10 3/ul Normal Absolute Lymph 1.84 Performed By: #### L100.0100 #### [facility] [address] [place], [place], [address] BASIC METABOLIC Collected: 10/17/2017 Status: F Source: [place] PROFILE (BMP) 10:42 PM [facility] REPOSITORY TYPE CODE TESTS RESULT OUT OF RANGE REFERENCE UNITS LAB L501.0100 74-106 mg/dL Normal GLU 102 Result Comment: Fasting Glucose result from 100 to 125 mg/dL suggests IMPAIRED HOMEOSTASIS per A.D.A. criteria. Please note revised GLUCOSE reference range effective 2017. LAB L501.1000 7-18 mg/dL Normal BUN 8 LAB L501.1100 0.55-1.02 mg/dL Normal CREAT,SERUM 0.62 Result Comment: The validity of the calculated GFR AND GFRAA in patients over 70 years has not been determined. Clinical correlation is essential. LAB L501.1110 >60 mL/min Normal EST GFR 112 Result Comment: Non- GFR Calc LAB L501.1115 >60 mL/min Normal EST GFR - AA 136 Result Comment: GFR Calc LAB L501.1255 ml/min Normal Estimated CRCL 93.49 LAB L501.1300 10-20 RATIO Normal BUN/CRE 13.0 LAB L501.2200 8.5-10 mg/dL Normal .1 CA 9.0 LAB L501.5300 136-14 mmol/L Normal 5 NA 138 LAB L501.5600 3.5-5. mmol/L Normal 1 K 3.8 LAB L501.5900 98-107 mmol/L Normal CL 101 LAB L501.6100 21.0-3 mmol/L Normal 2.0 CO2 32.0 LAB L501.6200 5-15 Normal GAP 5 Performed By: #### L500.2500 #### [facility] [address] [place], [address] EXT NON VASC Observed: 10/17/2017 Status: F Source: [place] LIMITED/SOFT TISS 10:22 PM [facility] REPOSITORY [facility] Imaging Services [address] [place] [address] Ext Non Vasc Limited/Soft Tiss MR#: [id number] Acct: [id number] Name: IVANA RAMIREZ Rep #: [id number] : 1975 F 42 From: Denisha Ruth MD PCP: Rubio Still MD Status: REG ER Study: Ext Non Vasc Limited/Soft Tiss Date of Exam: 10/17/17 Exam# [id number] Ordering Dr: Ni Bustamante US Head/Neck Soft Tissue INDICATION: LOWER BACK SWELLING JUST ABOVE SURGICAL SITE...S/P MICRODISECTOMY 4 DAYS AGO COMPARISON: None TECHNIQUE: Ultrasonographic grayscale and limited Doppler investigation of the soft tissues of the lower back, midline. FINDINGS: At the area of palpable bulging, the ophthalmic medical technologist measures a 3.1 x 2.4 x 1.1 cm hypoechoic area just cranial to the surgical site and a 0.8 x 0.6 x 0.6 cm smaller similar appearing lesion cranial to the first area in midline. US/Ext Non Vasc Limited/Soft Tiss IMPRESSION: Findings are suggestive of 2 small fluid collections cranial to the surgical access. These may represent subcutaneous seromas, not unusual after spine surgery, follow-up as clinically warranted at 2357 Reported and signed by: Denisha Ruth MD Electronically Signed: Denisha Ruth MD at 22:55 EST Tel , Service support , CC: Ni Bustamante; Rubio Still MD Client Account Representative: Signed FREE T3 Collected: 09/22/2017 Status: F Source: [place] 4:21 PM [facility] REPOSITORY TYPE CODE TESTS RESULT OUT OF RANGE REFERENCE UNITS LAB L501.66364 2.18-3.98 pg/mL Normal FREE T3 2.8 Performed By: #### L501.59619, L501.9520, L506.0400, L3300.1750 #### [facility] [address] [place], [place], [id number] THYROID STIM HORMONE Collected: 09/22/2017 Status: F Source: [place] (TSH) 4:21 PM [facility] REPOSITORY TYPE CODE TESTS RESULT OUT OF RANGE REFERENCE UNITS LAB L501.9520 0.358-3.74 uIU/mL High TSH 3.97 Performed By: #### L501.30821, L501.9520, L506.0400, L3300.1750 #### [facility] [address] [place], [address] T4 FREE DIRECT Collected: 09/22/2017 Status: F Source: [place] 4:21 PM [facility] REPOSITORY TYPE CODE TESTS RESULT OUT OF RANGE REFERENCE UNITS LAB L506.0400 0.76-1.46 ng/dL Normal T4 FREE 1.00 DIRECT Performed By: #### L501.12331, L501.9520, L506.0400, L3300.1750 #### [facility] [address] [place], [address] ESTRADIOL Collected: 09/22/2017 Status: F Source: JACKY 4:21 PM [facility] REPOSITORY TYPE CODE TESTS RESULT OUT OF RANGE REFERENCE UNITS LAB L3300.1750 pg/mL Normal ESTRADIOL 176.7 Result Comment: NORMAL REFERENCE RANGES FEMALE FOLLICULAR 21.4 - 164.8 pg/mL MID-CYCLE PEAK 49.9 - 367.2 pg/mL LUTEAL 40.2 - 259.0 pg/mL POST-MENOPAUSAL ON MHT <11.0 - 462.1 pg/mL NOT ON MHT <11.0 - 58.3 pg/mL MALE <11.0 - 52.5 pg/mL NOTE: [facility] HAS CONFIRMED THE DRUG FULVETRANT (FASLODEX) MAY CAUSE FALSELY ELEVATED ESTRADIOL RESULTS WHEN USING THIS TEST METHOD. IF PATIENT IS TAKING FULVESTRANT AN ALTERNATIVE METHOD SHOULD BE USED TO DETERMINE ESTRADIOL CONCENTRATION. Performed By: #### L501.42799, L501.9520, L506.0400, L3300.1750 #### [facility] [address] [place], [address] TESTOSTERONE, SERUM TOTAL Collected: 09/22/2017 Status: F Source: KEVIL 4:21 PM [facility] REPOSITORY TYPE CODE TESTS RESULT OUT OF REFERENCE UNITS RANGE LAB L509.3000 ng/dL Testosterone Normal 29.98 Result Comment: NORMAL REFERENCE RANGES MALE AGE <50 123.06 - 813.86 ng/dL MALE AGE >50 89.98 - 780.10 ng/dL FEMALE PREMENOPAUSE AGE 21 - 60 9.01 - 47.94 ng/dL FEMALE POSTMENOPAUSE AGE 45 - 89 <7.00 - 45.62 ng/dL REFERENCE RANGE AND METHODOLOGY CHANGED 08/03/2017 Performed By: #### L509.3000, L509.4001 #### [facility] [address] [place], [address] PROGESTERONE LEVEL Collected: 09/22/2017 Status: F Source: KEVIL 4:21 PM [facility] REPOSITORY TYPE CODE TESTS RESULT OUT OF REFERENCE UNITS RANGE LAB L509.4001 See Comment ng/mL Progesterone Normal 4.69 Result Comment: Progesterone Reference Table: UNITS Female: Follicular 0.15 - 1.40 ng/mL Luteal 3.34 - 25.56 ng/mL Mid-luteal 4.44 - 28.03 ng/mL Postmenopausal 0.0 - 0.73 ng/mL : 1st Trimester 11.22 - 90.00 ng/mL 2nd Trimester 25.55 - 89.40 ng/mL 3rd Trimester 48.40 -422.50 ng/mL Performed By: #### L509.3000, L509.4001 #### [facility] [address] [place], [address] DHEA SULFATE Collected: 09/22/2017 Status: F Source: JACKY 4:21 PM [facility] REPOSITORY Order Comment: Has Patient had Radioactive Injection for X-ray?: N TYPE CODE TESTS RESULT OUT OF RANGE REFERENCE UNITS LAB L3300.1500 57.3-279.2 ug/dL High DHEA SULF 288.8 4020 Result Comment: Performed at: [facility] [id number] Methods Examiner: Aaron Fields PhD, Phone: [phone] Performed By: #### L3300.1500 #### [facility] (refer to report for specific site) refer to report for address and phone number LIPID PROFILE Collected: 09/06/2017 Status: F Source: KEVIL 11:37 AM [facility] REPOSITORY TYPE CODE TESTS RESULT OUT OF RANGE REFERENCE UNITS LAB L501.4900 200 mg/dL High CHOL 226 Result Comment: <200 mg/dL Desirable 200-240 mg/dL Borderline >240 mg/dL High Risk LAB L501.5000 mg/dL Normal TRIG 95 Result Comment: The drugs N-Acetylcysteine and Metamizole may falsely depress this assay. Serum Triglycerides Reference Interval Normal <150 mg/dL Borderline high 150 - 199 mg/dL High 200 - 499 mg/dL Very High > or = 500 mg/dL LAB L501.6400 mg/dL Normal HDL 72 Result Comment: The drugs N-Acetylcysteine and Metamizole may falsely depress this assay. Reference Range HDL <40 mg/dL Low HDL Cholesterol HDL >or= 60 mg/dL High HDL Cholesterol LAB L501.6500 0-130 mg/dL High LDL 135 LAB L501.6600 5-40 mg/dL Normal VLDL 19 Performed By: #### L500.4100, L501.0100 #### [facility] [address] [place], [address] GLUCOSE Collected: 09/06/2017 Status: F Source: JACKY 11:37 AM [facility] REPOSITORY TYPE CODE TESTS RESULT OUT OF RANGE REFERENCE UNITS LAB L501.0100 70-110 mg/dL Normal GLU 80 Performed By: #### L500.4100, L501.0100 #### [facility] [address] [place], [address] URGENT CARE VISIT Observed: 08/19/2017 Status: F Source: JACKY REPORT 3:22 PM [facility] REPOSITORY [facility] [address] [place] [address] [address] [place] [address] OFFICE VISIT Date of Service: 08/19/17 MR#: [id number] Acct: [id number] Name: IVANA RAMIREZ Rep #: [id number] : 1975 Provider: Surya CULP Age/Sex: 42/F Location: [facility] Status: Signed Intake Vital Signs08/19/17 Height 5 ft 3 in Intake Visit Reasons: Sinus infection Is patient in pain?: No Allergies gabapentin [From Neurontin] Adverse Reaction (Verified 08/19/17 14:49) Upset Stomach venlafaxine [From Effexor] Adverse Reaction (Verified 08/19/17 14:49) Unknown Medications Alprazolam [Alprazolam] 0.5 mg PO TID PRN 11/24/16 [History Confirmed 08/19/17] Bupropion HCl [Bupropion HCl Sr] 150 mg PO DAILY 11/24/16 [History Confirmed 08/19/17] Hydrocodone/Acetaminophen [Hydrocodon-Acetaminophen 5-325] 1 tab PO Q4H PRN PRN 11/24/16 [History Confirmed 08/19/17] Naproxen [Naproxen] 500 mg PO BID 11/24/16 [History Confirmed 08/19/17] dalteparin (porcine) 10,000 anti-Xa unit/mL subcutaneous syringe 5,000 unit SC ONCE 08/19/17 [History Confirmed 08/19/17] ergocalciferol (vitamin D2) 50,000 unit capsule 200 unit PO ONCE 08/19/17 [History Confirmed 08/19/17] prasterone (dhea) 25 mg capsule 25 mg PO QDAY 08/19/17 [History Confirmed 08/19/17] pravastatin 10 mg tablet 10 mg PO QHS 08/19/17 [History Confirmed 08/19/17] progesterone 50 mg/mL intramuscular oil 5 mg IM QDAY 08/19/17 [History Confirmed 08/19/17] PFSH Medical History Sinusitis (Acute) Back pain (Acute) Fatigue (Acute) Fibromyalgia (Acute) Hemorrhoids (Acute) Migraines (Acute) Shoulder pain (Acute) Surgical History H/O foot surgery (Acute) H/O removal of cyst (Acute) Hx of cholecystectomy (Acute) Social History Smoking Status: Never smoker alcohol intake: never HPI Sinusitis: Details: IVANA RAMIREZ, is a 42 F who presents to the office today for sinus pressure and pain for the past week. Patient states that over the past couple days the sinus pressure and pain is worsened causing headaches and dizziness starting last night. She states that she has had sinus infections in the past with similar type symptoms. No fever, chills, sweats. No chest pain or shortness of breath. She reports no other associated symptoms or alleviating/aggravating factors. ROS Const Constitutional: Positive for headache(s); no fever(s), chills, night sweats or abnormal sleep pattern ENT ENT: Positive for headache(s), nasal congestion, sinus pressure, sinus pain and nasal discharge; no ear pain Resp Respiratory: No cough or shortness of breath Cardio Cardiology: No shortness of breath, irregular heart rhythm or fast heart rate Neuro Neurology: Positive for headache(s); no confusion Psych Psychiatric: No abnormal sleep pattern, No confusion Exam Const General: cooperative HENMT Head: normal to inspection Ears: hearing grossly normal bilaterally Nose: nasal discharge purulent Face and sinus: sinus tenderness frontal and maxillary Mouth: oral mucosae normal Throat: abnormal tonsil bilaterally, postnasal drainage Resp Effort AND Inspection: normal respiratory effort Auscultation: Bilateral: Clear to Auscultation Cardio Rate: regular rate Rhythm: regular rhythm Neuro General: alert, CN's II-XI intact bilaterally Psych Appearance: grossly normal Mental Status: mental status grossly normal Assessment AND Plan 1. Acute non-recurrent frontal sinusitis J01.10; J01.10 Status Acute Plan Augmentin 875 twice daily for 10 days has been called into the patient's pharmacy. Encouraged to get plenty of rest, drink lots of clear liquids, and use Tylenol or Ibuprofen (unless contraindicated) for fever and comfort. Patient also educated on other symptomatic management techniques. To be seen in 7-10 days if no improvement; sooner if worsening of symptoms. Patient advised of potential red flags and when appropriate report to the ED. Patient verbalized understanding all the above. Coding Level of Care Code Off vis,new,level 3 Diagnoses Acute non-recurrent frontal sinusitis J01.10; J01.10 Sinusitis location: frontal Chronicity: acute Recurrence: non-recurrent 08/19/17 1522 <Electronically signed by Surya CULP> Date Surya CULP Cosigner Signature: Date (if applicable) CC: ALLERGIES ALLERGIES DATE TYPE / CODE NAME / CODE REACTION SEVERITY SOURCE 10/17/2017 Drug gabapentin/[id number] Upset Stomach Unknown [facility] Allergy/416 415(RXNORM) [facility], [facility] 725348([facility] ED [facility]) Repository 10/17/2017 Drug venlafaxine/[id number] Unknown Unknown [facility] Allergy/416 4428(RXNORM) [facility], [facility] 719093([facility] ED CT) Repository 05/07/2014 DRUG VENLAFAXINE OTHER: SEE C [address] 033936([facility] Repository ED CT) 05/07/2014 DRUG GABAPENTIN GI UPSET [address] 473871([facility] Repository ED CT) ENCOUNTERS ENCOUNTERS ADMIT/DISCHARGE ACCOUNT ADMITTING ENCOUNTER LOCATION SOURCE NUMBER CLASS 07/11/2018 [id number] [facility] ing:LAB Repository 04/25/2018 [id number] [facility] ing:LAB Repository 04/11/2018/04/11/[id number] Repository 03/21/2018/03/22/[id number] Repository 03/21/2018/03/21/20 [id number] Ambulatory [facility] [place] Repository 02/28/2018 [id number] Ambulatory [facility] ing:LAB Repository 11/25/2017 [id number] Ambulatory [facility] ing:LAB Repository 10/17/2017/10/19/19 [id number] Emergency [facility] ing:ED Repository 09/22/2017 [id number] Ambulatory [facility] ing:LAB Repository 09/06/2017 [id number] Ambulatory [facility] ing:LAB Repository 08/19/2017/08/19/19 [id number] Ambulatory BMSBuilding:B [address] Repository PAYERS PAYERS ENCOUNTER GUARANTOR PAYER SUBSCRIBER SOURCE 07/11/2018 IVANA M Primary LILI J Jacky [id number] [facility] Number: [id number], [place] [id number] Repository [address]Tkl: (330) Date:9445-03-63YV [phone] () [id number] [place] [address]JQ: 07/11/2018 Secondary [address] [facility] Insurance:SELF PAY [facility] Number: Effective Repository Date:2018-07-11 04/25/2018 IVANA M Primary Lili J Jacky [id number] Insurance:[facility] CenterbaneD[facility]: [facility] Number: [id number] [place], [place] [id number] Repository [address]Bas: (330) Date:6662-48-34NX [phone] () [address] [place] [address]SY: 04/25/2018 Secondary NOT GIVENUNK Jacky Insurance:SELF PAY [facility] Number: Effective Repository Date:2018-04-25 02/28/2018 IVANA M Primary Lili J Jacky [id number] Insurance:[facility] CenterbaneD[facility]: [facility] Number: [id number] [place], [place] [id number] Repository [address]36[address]Vir: (330) Date:5727-36-18CV [phone] () MANOLO FITZGERALD [address]TA: 02/28/2018 Secondary NOT GIVENUNK Jacky Insurance:SELF PAY [facility] Number: Effective Repository Date:2018-02-28 11/25/2017 IVANA M Primary Lili J [facility] [id number] Insurance:ANTHEMPolic McbaneDOB: [facility] ROSSI y Number: [id number] [place], [place] [id number] Repository [address]Rpu: (330) Date:6865-03-82GM [phone] () MANOLO FITZGERALD [address]DY: 11/25/2017 Secondary NOT GIVENUNK Jacky Insurance:SELF PAY [facility] Number: Effective Repository Date:2017-11-25 10/17/2017 IVANA Blanton Primary Lili J Jacky [id number] Insurance:ANTHEMPolic McbaneDOB: [facility] ROSSI y Number: [id number] [place], [place] [id number] Repository [address]Udu: (330) Date:2374-36-73ZH [phone] () [id number], [place] [address]VX: 10/17/2017 Secondary NOT GIVENUNK Jacky Insurance:SELF PAY [facility] Number: Effective Repository Date:2017-10-17 09/22/2017 IVANA Blanton Primary Lili J [facility] [id number] Insurance:ANTHEMPolic McbaneDOB: [facility] RICHEY y Number: [id number] [place], [place] [id number] Repository [address]Hlf: (330) Date:8720-19-42PF [phone] () 024246NEEKTWTMANOLO BARRERA [address]XP: 09/22/2017 Secondary NOT GIVENUNK [address] Insurance:SELF PAY [facility] Number: Effective Repository Date:2017-09-22 09/06/2017 IVANA Blanton Primary Lili J [facility] [id number] Insurance:ANTHEMPolic McbaneDOB: [facility] y Number: [id number] [place], [place] [id number] Repository [address]Kjf: (330) Date:6404-12-75HE [phone] () 476[address]JPECQOW, [place] [address]HW: 09/06/2017 Secondary NOT GIVENUNK [address] Insurance:SELF PAY [facility] Number: Effective Repository Date:2017-09-06 08/19/2017 IVANA Blanton Primary Lili J Jacky [id number] Insurance:[facility]MPC[facility] Medical CenterbaneDOB: [facility] y Number: [id number] [place], [place] [id number] Repository [address]Uuu: (330) Date:9788-54-80EK [phone] () [id number], [place] [address]ES: 08/19/2017 Secondary NOT GIVENUNK Jacky Insurance:SELF PAY [facility] Number: Effective Repository Date:2017-08-19
--- OUTSIDE RECORDS SUMMARY | 2018-08-23 07:02 | XMS RPT_ITS ---
:1975 Author Organization [employer] Address [address] [place] [address] Phone Care Team Providers Name Role Phone Haylie SAHU, Katelyn Unavailable Reason for Visit Reason For Visit Description Start Date Postop - subsequent visit Preliminary reason for visit data, not yet signed by the author as of lower back post Bilateral Microdecompression Microdiscectomy L4-5 on 10/14/2017 Preliminary reason for visit data, not yet signed by the author as of Chief Complaint Chief Complaint Description Start Date lower back post Bilateral Microdecompression Microdiscectomy L4-5 on 10/14/2017 Preliminary chief complaint data, not yet signed by the author as of Instructions Instruction Description Start Date CompletedPatient advised to follow-up with Primary Care Physician for BMI management. Plan of Care Type Date Detail Appointment 03:20 PM Katelyn SAHU, [address] [facility], [facility], [place], [address], Medications Medication Instructions Start Stop Generic Name NDC Provider Date Date OXYCODONE HCL 1 tablet at / OXYCODONE HCL 48074447121 Katelyn TABS night 15 TABS Haylie SAHU PROMETHAZINE 1 tablet every / PROMETHAZINE HCL 12103934674 Katelyn HCL 25 MG TABS 6 hours as 06 Haylie needed TONEY-KOBY BUPROPION HCL 1 tablet two / BUPROPION HCL 15433231682 Scot D ER (XL) 150 MG times daily 25 Chauhan DO [id number] ALPRAZOLAM 0.5 3 times daily 2018/01/ ALPRAZOLAM 82057627942 Scot D MG TABS as needed 25 Chauhan DO PRAVASTATIN once daily / PRAVASTATIN 61482718651 Scot D SODIUM 10 MG 25 SODIUM Chauhan DO TABS VITAMIN D2 TABS 1.25 mg once / ERGOCALCIFEROL 89692372730 Scot D weekly 25 TABS Chauhan DO PORCINE 15mg once daily / PORCINE Scot D 25 Chauhan DO PROGESTERONE once daily / PROGESTERONE 51695173443 Scot D MICRONIZED 100 25 MICRONIZED Chauhan DO MG CAPS DHEA 25 MG TABS once daily / PRASTERONE 43712839693 Scot D 25 (DHEA) Chauhan DO Conditions or Problems Problem Problem Onset Status Entry Provider Comment Standard Annotate Name Code Date Date Description Other 106446810 Active Katelyn Surgical specified (SNOMED CT) /10/18 [facility] 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 Vital Signs Date Name Value Unit Description BMI (Body Mass 32.86 kg/m2 Body Mass Index Index) [Ratio] Preliminary vital sign data, not yet signed by the author as of BP Diastolic 79 mm[Hg] blood pressure, diastolic Preliminary vital sign data, not yet signed by the author as of BP Systolic 124 mm[Hg] blood pressure, systolic Preliminary vital sign data, not yet signed by the author as of Heart Rate 72 /min pulse rate E&M Preliminary vital sign data, not yet signed by the author as of Height 62 [in_us] height E&M Preliminary vital sign data, not yet signed by the author as of Height 157 cm height in centimeters E&M Preliminary vital sign data, not yet signed by the author as of Weight Measured 179 [lb_av] weight E&M Preliminary vital sign data, not yet signed by the author as of Weight Measured 81 kg weight in kilograms E&M Preliminary vital sign data, not yet signed by the author as of Results Date Name Value Unit Range Flag Description Office Visit: Postop - subsequent visit, Rm: 31 MEDS REVIEW Done Documentation of current medications (procedure) Preliminary observation data, not yet signed by the author as of Preliminary observation data, not yet signed by the author as of Clinical Summary: HMSPatientID OOP account number Procedures Code Procedure Name Date Entry Date CPT-03902 Physical Therapy G8730 Pain assessment documented as positive - follow-up documented G8427 Current medications documented 1036F Tobacco screening was negative - non user G8417 BMI documented as above normal parameters - follow-up documented G8783 Blood pressure within normal parameters - no follow-up required [facility]-[id number] Patient Encounter Medications Administered No information available. Immunizations No information available. Advance Directives There may be information available, but it has not been provided by the sender. Assessments There may be information available, but it has not been provided by the sender. Review of Systems There may be information available, but it has not been provided by the sender. Family History There may be information available, but it has not been provided by the sender. History of Past Illness There may be information available, but it has not been provided by the sender. History of Present Illness There may be information available, but it has not been provided by the sender.
--- OUTSIDE RECORDS SUMMARY | 2018-08-23 07:02 | XMS RPT_ITS ---
:1975 Author Organization [employer] Address [address] [place] [address] Phone Care Team Providers Name Role Phone [...] Plan of Care Type Date Detail Appointment 11:20 AM Katelyn SAHU, [address] [facility], [place], [address], Patient education Medications Medications Medication Instructions Start Stop Generic Name [facility] Provider Date Date CYCLOBENZAPRINE Take 1-2 CYCLOBENZAPRINE 09806214315 Katelyn HCL 5 MG TABS tablet by HCL Opsitmarjorie mouth every 8 TOWER OPERATOR-LINE O SCRIBE OPERATOR hours as needed OXYCODONE HCL 1 tablet at OXYCODONE HCL 33465257079 Katelyn TABS night /15 TABS [facility] TOWER OPERATOR-LINE O SCRIBE OPERATOR PROMETHAZINE HCL 1 tablet every PROMETHAZINE HCL 70676475109 Katelyn 25 MG TABS 6 hours as [facility] needed TOWER OPERATOR-LINE O SCRIBE OPERATOR BUPROPION HCL ER 1 tablet two BUPROPION HCL 93602503318 Scot D (XL) 150 MG times daily /25 Chauhan DO [id number] ALPRAZOLAM 0.5 MG 3 times daily ALPRAZOLAM 75979911188 Scot D TABS as needed /25 Chauhan DO PRAVASTATIN once daily PRAVASTATIN 64835667155 Scot D SODIUM 10 MG TABS / SODIUM Chauhan DO VITAMIN D2 TABS 1.25 mg once ERGOCALCIFEROL 90452340867 Scot D weekly /25 TABS Chauhan DO PORCINE 15mg once PORCINE Scot D daily /25 Chauhan DO PROGESTERONE once daily PROGESTERONE 41437060136 Scot D MICRONIZED 100 MG /25 MICRONIZED Chauhan DO CAPS Conditions or Problems Problem Problem Onset Status Entry Provider Comment Standard Annotate Name Code Date Date Description Other 498169099 Active Katelyn Surgical specified (SNOMED CT) 10/18 [facility] follow-up 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 Vital Signs Date Name Value Unit Description BMI (Body Mass 32.86 kg/m2 Body Mass Index Index) [Ratio] Preliminary vital sign data, not yet signed by the author as of BP Diastolic 85 mm[Hg] blood pressure, diastolic Preliminary vital sign data, not yet signed by the author as of BP Systolic 125 mm[Hg] blood pressure, systolic Preliminary vital sign data, not yet signed by the author as of Heart Rate 76 /min pulse rate E&M Preliminary vital sign [...] Office Visit: Postop - subsequent visit, Rm: 32 MEDS REVIEW Done Documentation of current medications (procedure) Preliminary observation data, not yet signed by the author as of Preliminary observation data, not yet signed by the author as of Clinical Summary: HMSPatientID OOP account number Procedures Code Procedure Name Date Entry Date CPT-76142 Physical Therapy G8730 Pain assessment documented as positive - follow-up documented G8427 Current medications documented 1036F Tobacco screening was negative - non user G8417 BMI documented as above normal parameters - follow-up documented G8783 Blood pressure within normal parameters - no follow-up required [id number] Patient Encounter Medications Administered No information available. [...]
== END ==
PROVIDERS: Family Provider Family Medicine; PCP Family Medicine; Referring Provider Specialist; Visit Provider Specialist
DX: E28.8 Other ovarian dysfunction (principal); E27.9 Disorder of adrenal gland, unspecified; E03.8 Other specified hypothyroidism
CPT/HCPCS: 36415; 82627; 82670; 84144; 84403; 84481; 82626

== ENCOUNTER → 2018-08-03 15:20 | Outpatient (CLI) | payer BC, SELFPAY ==
[2018-08-15 13:28] LABS: HPV APTIMA, High Risk Positive (Negative)
[2018-08-15 13:31] LABS: HPV Reflexed? YES, CHARGE PATIENT
== END ==
PROVIDERS: Family Provider Family Medicine; PCP Family Medicine; Visit Provider Obstetrics & Gynecology
DX: Z12.4 Encounter for screening for malignant neoplasm of cervix (principal)
CPT/HCPCS: 87624; 88175; G0145

== ENCOUNTER → 2018-08-16 12:15 | Outpatient (CLI) | payer BC, SELFPAY ==
--- NOTE | 2018-08-16 12:18 | US_ITS ---
STUDY: THYROID ULTRASOUND REASON FOR EXAM: Female, 43 years old. Thyroiditis TECHNIQUE: Ultrasound evaluation of the thyroid was performed with real-time and static sommer-scale imaging. COMPARISON: Ultrasound thyroid 06/06/2017 FINDINGS: RIGHT LOBE: The right thyroid measures 5.0 x 1.5 x 1.1 cm. Normal echotexture and vascularity. Simple cyst lower pole 4 mm. LEFT LOBE: The left thyroid measures 5.2 x 1.6 x 1.0 cm, normal echotexture and vascularity, no thyroid nodules. ISTHMUS: The isthmus measures 2 mm, normal echotexture . US/Thyroid IMPRESSION: Simple cyst of the right thyroid 4 mm. Otherwise normal bilateral thyroid glands with no sonographic features of acute or chronic thyroiditis. Electronically Signed: Renato Etienne MD at 17:16 EST Tel , Service support ,
== END ==
PROVIDERS: Family Provider Family Medicine; PCP Family Medicine; Referring Provider Family Medicine; Visit Provider Family Medicine
DX: E06.9 Thyroiditis, unspecified (principal); E04.1 Nontoxic single thyroid nodule
CPT/HCPCS: 76536

== ENCOUNTER → 2018-08-23 16:04 | Outpatient (CLI) | payer BC, SELFPAY ==
--- NOTE | 2018-08-23 | IMM_PTH ---
PATIENT: MIKAELA RAMIREZ LOC: [facility] U#:[id number] AGE/SX: 50/F ROOM: RE08/23/[address]: Dr. Yomi Gandhi MD : 1975 BED: DIS: SPEC #: [id number] RECD: 08/25/18 10:10 STATUS: KENIA REQ #: [id number] HERIBERTO: 08/23/18 00:[address]: Yomi Gandhi DEPT: IMMUNOHISTOCHEMISTRY RECD BY: Yaquelin Vergara ENTERED: 08/25/18 10:11 SP TYPE: IMMUNO OTHR DR: Dr. Rubio Still MD Tissues: A - Uterine cervix, NOS B - Endocervical Procedures: p16 (initial) KI-67 (add) PHYSICIAN & INSTITUTION [place] [address] SPECIMEN INFORMATION: Tissue Source: A - Cervical biopsy 3 o'clock, B - [facility] Clinical Info: R87.810, R87.610 Specimen Number: [id number] A & B CPT code: 28711 x2, 68442 x2 METHODOLOGY: Deparaffinized sections of prefer/formalin-fixed tissue or PAP/DQ stained slides are incubated with monoclonal/polyclonal antibodies/oligonucleotide probes. Localization is made via biotin free immunoperoxidase method. Appropriate controls are performed and reacted as expected. Results on target cell population are indicated in the following table: RESULTS: ANTIBODY / CLONE RESULT Block A P16 (E6H4) positive, block staining Ki-67 (30-9) positive, moderate to high Block B P16 (E6H4) positive, block staining Ki-67 (30-9) positive, moderate to high These tests were developed and their performance characteristics determined by [facility]. They may not have been cleared or approved by the U.[place]. Food and Drug Administration. The FDA has determined that such clearance or approval is not necessary. INTERPRETATION: A. Cervix, 3 o'clock, biopsy: Mild, moderate and severe squamous dysplasia. B. Endocervical curettage: Detached and unoriented fragments of squamous epithelium with moderate to severe dysplasia. SJ:cassie 08/28/18
--- NOTE | 2018-08-23 14:00 | CER_PTH ---
PATIENT: MIKAELA RAMIREZ LOC: [facility] U#:[id number] AGE/SX: 50/F ROOM: RE08/23/[address]: Dr. Yomi Gandhi MD : 1975 BED: DIS: SPEC #: [id number] RECD: 08/23/18 15:41 STATUS: KENIA REJose J #: [id number] HERIBERTO: 08/23/18 14:[address]: Yomi Gandhi DEPT: SURGICAL PATHOLOGY RECD BY: Ricardo Valentino ENTERED: 08/24/18 11:08 SP TYPE: CERV OTHR DR: Dr. Rubio Still MD Tissues: A - Uterine cervix, NOS B - Endocervical Procedures: Surgery Specimen Level IV HEADER OPERATION: Colposcopy PRE-OP DIAGNOSIS: R87.810, R87.610 TISSUE SUBMITTED: A - Cervical biopsy 3 o'clock, B - ECC MICROSCOPIC DIAGNOSIS A. 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 Chronic inflammation and squamous metaplasia. See comment. B. ECC: Detached and unoriented fragments of squamous epithelium with moderate to severe dysplasia (HGSIL and INDU II-III). Fragments of benign endocervical mucosa with acute and chronic inflammation, blood and mucous. See comment. SJ:rg 08/25/18 COMMENT A & B. Immunohistochemistry ([id number]) for surrogate HPV marker (p16) supports the above diagnosis. Case has been reviewed in consultation with Dr. Melissa who concurs with the above diagnosis. IDC:AM MICROSCOPIC DESCRIPTION Slides are reviewed. GROSS DESCRIPTION A - Received in fixative is one container labeled with the patient's name and designated cervical biopsy 3?o'clock. The specimen consists of multiple irregular fragments of light driscoll soft tissue that in aggregate measure 0.6 x 0.5 x 0.1 cm. The specimen is totally submitted in one cassette. B - Received in fixative is one container labeled with the patient's name and designated ECC. The specimen consists of light-pink driscoll mucoid material aggregating to 1 x 1 x <0.1 cm. The specimen is totally submitted in one cassette. / AM:cassie 08/24/18 TC: CPT: 83540 x2
== END ==
PROVIDERS: Family Provider Family Medicine; PCP Family Medicine; Referring Provider Obstetrics & Gynecology; Visit Provider Obstetrics & Gynecology
DX: R87.810 Cervical high risk human papillomavirus (HPV) DNA test positive (principal); R87.610 Atypical squamous cells of undetermined significance on cytologic smear of cervix (ASC-US)
CPT/HCPCS: 88305; 88341; 88342

== ENCOUNTER 2018-09-11 09:28 | Day surgery (SDC) | payer BC, SELFPAY ==
[2018-09-07 15:47] LABS: Hematocrit 42.9 % (37-47); Hemoglobin 13.7 g/dl (12.0-15.0); Mean Corp Hgb Conc 31.9 g/gl (32-36); Mean Corpuscular Hgb 29.9 pg (27.0-32.0); Mean Corpuscular Volume 93.7 fL (81-99); Mean Platelet Vol. 9.4 fl (6.2-12.0); Platelet Count 328 K/mm3 (150-450); RBC Distribution Width CV 13.1 % (11.6-14.6); RBC Distribution Width SD 44.7 fl (35.1-43.9); Red Blood Count 4.58 M/mm3 (4.2-5.4)
[2018-09-07 15:48] LABS: Scan Indicated on CBC? Y/N NO
[2018-09-07 15:50] LABS: International Normalized Ratio 0.9; Prothrombin Time (Protime)PT. 12.1 SECONDS (11.7-14.9)
[2018-09-07 15:51] LABS: Partial Thromboplast Time 28.8 Seconds (24.1-36.2)
[2018-09-07 16:02] LABS: Pregnancy, Serum, hCG Quali. NEGATIVE Negative (0-9 Nonpreg)
--- NOTE | 2018-09-10 19:34 | PCM.HP.BLA ---
History and Physical Date of Admission: 09/11/18 Surgical History and Physical Ivana Schwab, a 43 year old female 5 0 0 0 5, presents for LEEP on September 11, 2018 at 11:35. -- Severe Cervical Dysplasia -- History of all normal pap screenings from 2008 to 2016. Colposcopy procedure for ASCUS +HPV from recent pap screening on 08-03-18 showed INDU III. MEDICATIONS HISTORY: Patient is also takin. Vicodin 5-300 mg tablet, maximum of 3 tabs per day 2. bupropion HCl 150 mg tablet extended release 24 hr, 2 daily 3. naproxen sodium 220 mg tablet, 1-3 tabs per day 4. alprazolam 0.25 mg tablet 5. pravastatin 10 mg tablet, One pill by mouth once a day 6. Supplement (s) [No Strength], Progesterone sublingual at hs ALLERGIES: Lidocaine, Effexor, Neurontin, Effexor, Blisters, Lidocaine, Gi distress, Neurontin and Gi distress Infections - Chicken pox Illnesses - TMJ, Fibromyalgia Accidents - None Hospitalizations - see surgery and Childbirth Review of Systems: GENERAL - Denies fever, or chills SKIN - Denies skin changes EYES - Denies visual changes EARS - Denies difficulty hearing NOSE - Denies nasal congestion or bleeding MOUTH - Denies sore throat or difficulty swallowing NECK - Denies pain or swelling RESPIRATORY - Denies shortness of breath or wheezing CARDIOVASCULAR - Denies palpitations or chest pain GASTROINTESTINAL - Denies nausea, vomiting, diarrhea, constipation GENITOURINARY - Denies dysuria, frequency of urination, incontinence of urine MUSCULOSKELETAL - Denies joint or muscle pain NEUROLOGICAL - Denies localized numbness or weakness PSYCHIATRIC - Denies depression or anxiety ENDOCRINE - Denies heat or cold intolerance, weight loss or gain HEMATO-IMMUNOLOGIC - Denies excesive bleeding with cuts SOCIAL HISTORY: Alcohol Use - None Smoking - Never Diet - no particular diet Lifestyle - moderate stress lifestyle and Exercise - minimal Seat Belt Use - always 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 MENSTRUAL HISTORY: LMP Known?- DefiniteAmount/Duration - 4 days, Regularity - Regular, Frequency - monthly days, LMP - 08/04/19, Age Onset Menarche - 15 PAST PREGNANCIES: Total Pregnancies - 5; Full Term Pregnancies - 5; Premature - 0; Abortions, Induced - 0; Abortions, Spontaneous - 0; Ectopics - 0; Multiple Births - 0; Living Children - 5 SURGICAL HISTORY: 1. 01/13/2007 cholecystectomy ; Dr. Pelaez - 2. 08/15/1988 Cyst removal from (R) fifth digit ; - 3. 01/13/1995 (R) Foot Surgery Pins in (R) 5th digit ; - 4. 10/14/2017 Back Surgery ; - PHYSICAL EXAM BP- 110/64 Sitting, Right arm, regular cuff Weight- 186.87220 lbs Height- 62.50 inch BMI:33.62 CONSTITUTIONAL - NAD, well nourished, and well developed SKIN - No rash, lesions, or ulcers HEENT - Normocephalic, PERRLA, EOMI NECK - No nodes, no nuchal rigidity and thyroid normal size and texture LYMPH NODES - Palpation of lymph nodes in neck and groins within normal limits LUNGS - CTA x2 without wheezes, crackles or rales CARDIAC - Regular rate and rhythm without rubs, murmurs, or gallops BREAST - No dominant masses, no tenderness, no axillary adenopathy, no nipple discharge, no skin changes ABDOMEN - Without hepatosplenomegaly, distention, masses, rebound, or guarding; normal bowel sounds; no hernias EXTREMITIES - No edema or calf tenderness NEUROLOGICAL - Cranial nerves II-XII grossly intact PSYCHIATRIC - A and O to time, place, person, mood and affect External Genitial Vagina - non-tender without lesions Urethra/Urethral Meatus - non-tender Bladder - non-tender Vagina - vaginal spencer are pink and moist without loss of rugae and no evidence of atropy Cervix - without cervical motion tenderness and has normal size and features without evident lesions Uterus - multiparous size 6 cm & wt 75-125 g Adnexa - clear without massess or tenderness ASSESSMENT/PLAN: Severe Cervical Dysplasia. Plan LEEP. Discussed RBAs and all questions answered.
[2018-09-11] VITALS (7 sets, daily range): BP systolic 105–120; BP diastolic 60–81; PULSE 53–66; RESP 14–18; TEMP 36.3–36.9; O2SAT 100; BMI 34.7
--- NOTE | 2018-09-11 | IMM_PTH ---
PATIENT: MIKAELA RAMIREZ LOC: [facility] [place] U#:[id number] AGE/SX: 43/F ROOM: RE09/11/[address]: Dr. Yomi Gandhi MD : 1975 BED: DIS: 09/11/2018 SPEC #: [id number] RECD: 09/12/18 13:47 STATUS: KENIA REJose J #: [id number] HERIBERTO: 09/11/18 00:[address]: Yomi Gandhi DEPT: IMMUNOHISTOCHEMISTRY RECD BY: Yaquelin Vergara ENTERED: 09/12/18 13:48 SP TYPE: IMMUNO OTHR DR: Dr. Rubio Still MD Tissues: A - Uterine cervix, NOS B - Endocervical Procedures: p16 (initial) KI-67 (add) PHYSICIAN & INSTITUTION [place] [id number] SPECIMEN INFORMATION: Tissue Source: A - Ectocervical, B - Endocervical Clinical Info: Severe cervical dysplasia Specimen Number: [id number] A2 & B CPT code: 92975 x2, 90044 x2 METHODOLOGY: Deparaffinized sections of prefer/formalin-fixed tissue or PAP/DQ stained slides are incubated with monoclonal/polyclonal antibodies/oligonucleotide probes. Localization is made via biotin free immunoperoxidase method. Appropriate controls are performed and reacted as expected. Results on target cell population are indicated in the following table: RESULTS: ANTIBODY / CLONE RESULT Block A2 P16 (E6H4) positive, block-like Ki-67 (30-9) positive, moderate-high Block B P16 (E6H4) positive, block-like Ki-67 (30-9) positive, moderate-high These tests were developed and their performance characteristics determined by [facility]. They may not have been cleared or approved by the U.S. Food and Drug Administration. The FDA has determined that such clearance or approval is not necessary. INTERPRETATION: A. Ectocervix, LEEP conization: High grade squamous dysplasia, CIN3 (HSIL) B. Endocervix, LEEP conization: High grade squamous dysplasia, CIN3 (HSIL) Comment: High-grade dysplasia involves endocervical glands. AM:eyal 09/13/18
--- NOTE | 2018-09-11 | CER_PTH ---
PATIENT: MIKAELA RAMIREZ LOC: [facility] [place] U#:[id number] AGE/SX: 43/F ROOM: RE09/11/[address]: Dr. Yomi Gandhi MD : 1975 BED: DIS: 09/11/2018 SPEC #: [id number] RECD: 09/11/18 14:27 STATUS: KENIA MARY #: [id number] HERIBERTO: 09/11/18 00:[address]: Yomi Gandhi DEPT: SURGICAL PATHOLOGY RECD BY: Hunter Barillas ENTERED: 09/11/18 14:27 SP TYPE: CERV OTHR DR: Dr. Rubio Still MD Tissues: A - Uterine cervix, NOS B - Endocervical C - Endocervical Procedures: Surgery Specimen Level IV Surgery Specimen Level V HEADER OPERATION: LEEP cone PRE-OP DIAGNOSIS: Severe cervical dysplasia TISSUE SUBMITTED: A - Ectocervical, B - Endocervical, C - Endocervical curettings MICROSCOPIC DIAGNOSIS A. Ectocervix, LEEP conization: Focal severe squamous dysplasia, INDU III (HGSL). Nabothian cysts, squamous metaplasia and chronic inflammation. See comment. B. Endocervix, LEEP conization: Severe squamous dysplasia involving the endocervical glands. Squamous metaplasia and chronic inflammation. Inked margins are free of dysplasia. C. Endocervix, curettings: Strips of benign superficial endocervix. No evidence of dysplasia. AM:cassie 09/12/18 COMMENT A. The severe dysplasia involves the endocervical glands and appears to extend close to the deep margin of excision. A & B. Results from immunohistochemistry ([id number]) for surrogate HPV marker (p16) will be reported separately. MICROSCOPIC DESCRIPTION Slides are reviewed. GROSS DESCRIPTION A - Received in fixative is one container labeled with the patient's name and designated ectocervix. The specimen consists of three irregular fragments of pink-driscoll soft tissue ranging in size from 0.8 to 2.5 cm. The two smaller fragments are inked, bisected and totally submitted in cassette 1. The larger fragment is inked, serially sectioned and totally submitted in cassettes 2-3. B - Received in fixative is one container labeled with the patient's name and designated endocervix. The specimen consists of two irregular fragments of pink-driscoll soft tissue that in aggregate measure 1 x 0.6 x 0.2 cm. The fragments are inked, bisected and totally submitted in one cassette. C - Received in fixative is one container labeled with the patient's name and designated endocervical curettings. The specimen consists of reddish-driscoll mucoid material aggregating to 0.5 x 0.3 x <0.1 cm. The specimen is submitted in its entirety in one cassette. / AM:cassie 09/11/18 TC:0 CPT: 66012 x2, 33180
[2018-09-11 09:55] LABS: Internal QC Validated? YES +Cl - CLEAR BKGD; Pregnancy, Urine Negative Negative
--- NOTE | 2018-09-11 10:32 | PCM.OPRPT ---
Report of Operation Date of Procedure: 09/11/18 Pre-Operative Diagnosis: Severe Cervical Dysplasia Post-Operative Diagnosis: Severe Cervical Dysplasia Surgery/Procedure Performed:: LEEP of Cervix Description of Surgical Findings:: Normal-appearing cervix. Type of Anesthesia:: Local MAC Anesthesiologist: Julian Shukla Specimen's removed: Ectocervix, endocervix, ECC after LEEP Estimated Blood Loss (mL): Minimal Fluids Replaced: Crystalloid Description of Procedure: Surgeon: Yomi Gandhi MD, FACOG Indication: 43 year patient who was recently noted to have severe cervical dysplasia at time of cervical biopsy. Given this, the patient desires that we proceed with the above surgery. She has been counseled regarding the risk, indications, and alternatives of this procedure and desire that we proceed. All questions answered. Procedure: Patient taken to the operating room where she was given IV sedation and placed in the dorsal lithotomy position and prepped and draped in the usual sterile fashion. Cervix was visualized and painted with Lugol's solution. The ectocervix was then removed to a depth of 5 mm on a setting of 50 W cutting and endocervix removed to a depth of 7 mm on a setting of 50 W cutting. Endocervical curettings were obtained. Base of the cone was then cauterized a setting of 50 W coagulation and Monsel's was painted across the LEEP base. Pt tolerated the procedure well and was taken to the recovery room in satisfactory condition. Sponge, instruments and needle counts were all correct. There were no apparent complications of the surgery. To Pathology: Ectocervix, endocervix, ECC after LEEP Grafts/Implants Used: None - Complications None - Admit VTE Documentation VTE Present on Admission: Yes VTE Mechan Device Prophylaxis: SCD's VTE Pharm Prophylaxis ordered?: No Reason prophylaxis not ordered:: Treatment Not Indicated
--- NOTE | 2018-09-11 10:36 | DCINST_ITS ---
Discharge Diet: No Restrictions Discharge Activity: Return to Normal Activity, May not drive while taking narcotic pain medications. May resume sexual activity in: 4 weeks - nothing in the vagina for 4 weeks. Call your doctor if you observe: Fever of 101 or Higher, Inability to urinate, Inability to have a bowel movement, Using more than one pad per hour Allergies/Adverse Reactions: Allergies gabapentin [From Neurontin] Adverse Reaction (Verified 09/04/18 13:52) Upset Stomach venlafaxine [From Effexor] Adverse Reaction (Verified 09/04/18 13:52) Unknown Medications to take at Discharge Alprazolam 0.5 mg PO TID PRN 11/24/16 pravastatin 10 mg tablet 10 mg PO QHS 08/19/17 Progesterone, Micronized [Prometrium] 100 mg SUBLINGUAL DAILY 10/17/17 Bupropion HCl [Bupropion HCl Sr] 150 mg pe PO DAILY 09/04/18 Hydrocodone/Acetaminophen [Hydrocodone-Acetamin 5-325 mg] 1 tab PO Q6H PRN PRN 09/04/18 Naproxen 500 mg PO DAILY 09/04/18 Orders to be completed after discharge: ,Urine Location: Laboratory Primary Care Physician: Rubio Still MD [Primary Care Provider] - Test Results: Test results from this visit will be discussed in further detail at your follow- up appointment, if applicable. Please Follow Up With: Yomi Gandhi MD When: 3-4 weeks
[2018-09-11] MEDS: FERRIC SUBSULFATE 8 GM SOLN (11:40)
== END 2018-09-11 13:14 | disposition home or self-care (01) ==
LOC: SDC 09:29 → AC 09:33
PROVIDERS: Family Provider Family Medicine; PCP Family Medicine; Referring Provider Obstetrics & Gynecology; Visit Provider Obstetrics & Gynecology
PROC: 0UBC7ZZ Excision of Cervix, Via Natural or Artificial Opening (ICD-10-PCS; CPT 57522; principal; 2018-09-11 10:55)
DX: D06.1 Carcinoma in situ of exocervix (principal); D06.0 Carcinoma in situ of endocervix; N88.8 Other specified noninflammatory disorders of cervix uteri; E78.00 Pure hypercholesterolemia, unspecified; F32.9 Major depressive disorder, single episode, unspecified; Z79.899 Other long term (current) drug therapy
CPT/HCPCS: 57522; 36415; 81025; 84703; 85027; 85610; 85730; 86850; 86900; 88305; 88307; 88341; 88342; J7120; J2405

== ENCOUNTER → 2018-09-25 14:38 | Outpatient (CLI) | payer BC, SELFPAY ==
[2018-09-11 09:54] VITALS: BMI 34.7
--- NOTE | 2018-09-25 14:40 | BI_ITS ---
MAMMOGRAPHY - BILATERAL SCREENING REASON FOR EXAM: Female, 43 years old. Routine annual screening examination. PERTINENT HISTORY: Aunt with breast cancer. TECHNIQUE: Digital bilateral breast beverly (3D mammographic acquisition) in the CC and MLO projections. 2-D mediolateral oblique (MLO) and craniocaudad (CC) views of both breasts were obtained. CAD: Full Field Digital Mammography with Computer Added Detection was performed. COMPARISON: None. Baseline examination. FINDINGS: Breast Composition: There are scattered areas of fibroglandular density. There are no dominant masses or suspicious calcifications. No other significant abnormalities are identified. BI/SCREENING MAMM (CAD), BILAT IMPRESSION: Negative screening mammogram. Yearly followup mammogram recommended. (A) ASSESSMENT CATEGORY: BIRADS Category 1: Negative. A letter regarding these results will be sent to the patient by the facility within 30 days. Approximately 10% of breast cancers are not detected by mammography. A normal mammogram should not delay biopsy of a clinically suspicious abnormality. [id number] Electronically Signed: Alex Sanchez MD at 15:52 EST , Service support ,
== END ==
PROVIDERS: Family Provider Family Medicine; PCP Family Medicine; Referring Provider Obstetrics & Gynecology; Visit Provider Obstetrics & Gynecology
DX: Z12.31 Encounter for screening mammogram for malignant neoplasm of breast (principal)
CPT/HCPCS: 77063; 77067

== ENCOUNTER → 2019-01-31 10:16 | Outpatient (CLI) | payer BC, SELFPAY ==
[2018-09-11 09:54] VITALS: BMI 34.7
[2019-01-31 11:44] LABS: AST(SGOT) 17 U/L (15-37); Alanine Aminotransfer ALT/SGPT 26 U/L (13-56); Albumin, Serum 3.8 g/dL (3.2-5.0); Alkaline Phosphatase 84 U/L (45-117); Anion Gap 3 (5-15); BUN 13 mg/dL (7-18); BUN/Creat Ratio 19.5 RATIO (10-20); Chloride 105 mmol/L (98-107); Cholesterol 242 mg/dL (200); Creatinine, Serum 0.67 mg/dL (0.55-1.02); EST Glomerular Filtration Rate 102 mL/min (>60); Est Glom Filt Rate - Afr Amer 123 mL/min (>60); Globulin 3.7 g/dL (2.2-4.2); Glucose 86 mg/dL (74-106); High Density Lipoprotein 70 mg/dL; Potassium 4.1 mmol/L (3.5-5.1); Protein, Total 7.5 g/dL (6.4-8.2); Sodium Level 138 mmol/L (136-145); Triglycerides 94 mg/dL; Very Low Density Lipoprotein 19 mg/dL (5-40)
== END ==
PROVIDERS: Family Provider Family Medicine; PCP Family Medicine; Referring Provider Family Medicine; Visit Provider Family Medicine
DX: E78.5 Hyperlipidemia, unspecified (principal)
CPT/HCPCS: 36415; 80053; 80061

== ENCOUNTER → 2019-04-04 17:19 | Outpatient (CLI) | payer BC, SELFPAY ==
[2018-09-11 09:54] VITALS: BMI 34.7
--- NOTE | 2019-04-04 15:00 | ECC_PTH ---
PATIENT: MIKAELA RAMIREZ LOC: [facility] U#:[id number] AGE/SX: 50/F ROOM: RE04/04/[address]: Dr. Yomi Gandhi MD : 1975 BED: DIS: SPEC #: [id number] RECD: 04/04/19 17:23 STATUS: KENIA REJose J #: [id number] HERIBERTO: 04/04/19 15:[address]: Yomi Gandhi DEPT: SURGICAL PATHOLOGY RECD BY: Ricardo Valentino ENTERED: 04/05/19 07:39 SP TYPE: ECC OTHR DR: Dr. Rubio Still MD Tissues: Endocervical Procedures: Surgery Specimen Level IV HEADER OPERATION: ECC PRE-OP DIAGNOSIS: D06.9 TISSUE SUBMITTED: ECC MICROSCOPIC DIAGNOSIS ECC: Fragments of benign ecto- and endocervical mucosa with chronic inflammation and squamous metaplasia. Fragments of benign endometrial tissue, consistent with lower uterine segment. A few fragments of myometrium. Negative for dysplasia. SJ:cassie 04/06/19 COMMENT Please make reference to previous specimen ([id number]) ectocervix and endocervix, LEEP conization with diagnosis of severe squamous dysplasia. MICROSCOPIC DESCRIPTION Slides are reviewed. GROSS DESCRIPTION Received is one container labeled with the patient's name and not further designated. The specimen consists of multiple fragments of hemorrhagic soft tissue mixed with mucoid tissue that in aggregate measure 2.5 x 2 x 0.2 cm. The specimen is totally submitted in one cassette. / IRENE:cassie 04/05/19 TC:5 CPT: 58352
[2019-04-09 15:07] LABS: HPV APTIMA, High Risk Negative (Negative)
== END ==
PROVIDERS: Family Provider Family Medicine; PCP Family Medicine; Referring Provider Obstetrics & Gynecology; Visit Provider Obstetrics & Gynecology
DX: D06.9 Carcinoma in situ of cervix, unspecified (principal)
CPT/HCPCS: 88175; 88305; G0145

== ENCOUNTER → 2019-04-05 16:14 | Outpatient (CLI) | payer BC, SELFPAY ==
[2018-09-11 09:54] VITALS: BMI 34.7
--- NOTE | 2019-04-05 16:29 | MRI_ITS ---
STUDY: MRI LUMBAR SPINE WITH AND WITHOUT CONTRAST REASON FOR EXAM: Female, 44 years old. Back pain with bilateral radiculopathy TECHNIQUE: Standardized fat and water weighted pulse sequences were obtained in the sagittal and axial planes. 17 IV Dotarem was administered for the contrast portion of the examination. COMPARISON: None FINDINGS: T12-L1: Normal endplates. Normal disc height, hydration and morphology. Normal bilateral facet joints. Normal central canal and bilateral lateral recesses. Normal bilateral intervertebral neural foramina. Normal lumbar lordosis. There is no substantial scoliosis. Normal conus medullaris that terminates at L1-2 L1-2: Normal endplates. Normal disc height, hydration and morphology. Normal bilateral facet joints. Normal central canal and bilateral lateral recesses. Normal bilateral intervertebral neural foramina. L2-3: Normal endplates. Normal disc height, hydration and morphology. Normal bilateral facet joints. Normal central canal and bilateral lateral recesses. Normal bilateral intervertebral neural foramina. L3-4: Narrowed disc space with desiccation of disc and minor annular bulge. Mild facet arthropathy.. Normal central canal and bilateral lateral recesses. Moderate bilateral neural foraminal encroachment. L4-5: Normal endplates. Normal disc height, desiccation and minor bulging disc osteophyte complex.. Bilateral facet arthropathy.. Normal central canal and bilateral lateral recesses. Moderate bilateral neuroforaminal stenosis. L5-S1: Normal endplates. Normal disc height, hydration and morphology. Mild facet arthropathy.. Small synovial cyst in the paraspinous soft tissues posterior to the right lamina Normal central canal and bilateral lateral recesses. Normal bilateral intervertebral neural foramina. Normal visualized sacral ala. Normal visualized paraspinous soft tissue structures. Following contrast administration there is nonspecific enhancement of a solitary descending nerve root within the posterior medial aspect of the thecal sac extending from L2 to S1 of uncertain etiology or clinical significance. Differential diagnosis includes demyelinating disease, inflammatory disease or neoplasm however clinical correlation is recommended MRI/Spine Lumbar W/WO Contrast IMPRESSION: Spinal stenosis at L3-4 and L4-5 secondary to bulging annuli and facet arthropathy. Incidental finding of nonspecific enhancement of solitary nerve root of indeterminate etiology or clinical significance. Clinical correlation is recommended Electronically Signed: Rell Garcia MD at 18:59 EDT , Service support ,
== END ==
PROVIDERS: Family Provider Family Medicine; PCP Family Medicine; Referring Provider Orthopaedic Surgery Orthopaedic Surgery of the Spine; Visit Provider Orthopaedic Surgery Orthopaedic Surgery of the Spine
DX: M54.16 Radiculopathy, lumbar region (principal); M51.26 Other intervertebral disc displacement, lumbar region
CPT/HCPCS: 72158; A9575

== ENCOUNTER → 2019-05-25 08:52 | Outpatient (CLI) | payer BC, SELFPAY ==
[2018-09-11 09:54] VITALS: BMI 34.7
--- NOTE | 2019-05-25 10:29 | NEURO ---
NCS and/or EMG Patient Report HPI: Patient is a 44-year-old female who presented with complain of pain in right hip, thigh and gluteal area as well as pain in the right leg going down to bottom of the right foot occasionally. Patient has H/O fibromyalgia. Patient also had a microdiscectomy for low back pain a few years ago. Patient also has some back pain radiating down to the right leg. Patient denies being diabetic Physical Exam: Tenderness and edema noted in right gluteal and sacroiliac joint area. Tenderness in the right lateral hip area. Mild weakness of the right hip extensor, flexors and abductors noted. Mild sensory deficit in the right lower extremity, especially in the right foot noted. Incision from lumbar microdiscectomy is well-healed. Findings: 1. Normal nerve conduction studies of the right and left peroneal and tibial motor nerves and sural and superficial peroneal sensory nerves. 2. Normal needle examination of bilateral lower extremities including bilateral lumbar paraspinal muscles. Impression: 1. Normal nerve conduction studies and electromyographic examination of bilateral lower extremities. 2.No electrodiagnostic evidence of lumbar radiculopathy, plexopathy or peripheral neuropathy in bilateral lower extremities. Recommendation: 1. Clinical correlation and appropriate work-up is recommended. 2. Patient may need additional MRI imaging of right hip and pelvic area to assess for right hip,pelvic and sacroiliac joint area pain.
[2019-05-25 12:06] LABS: Alanine Aminotransfer ALT/SGPT 26 U/L (13-56); Cholesterol 208 mg/dL (200); High Density Lipoprotein 54 mg/dL; Triglycerides 264 mg/dL; Very Low Density Lipoprotein 53 mg/dL (5-40)
[2019-05-25 12:09] LABS: Vitamin D,25 Hydroxy 26.8 ng/mL (29.95-100.01)
== END ==
PROVIDERS: Family Provider Family Medicine; PCP Family Medicine; Referring Provider Orthopaedic Surgery Orthopaedic Surgery of the Spine; Visit Provider Orthopaedic Surgery Orthopaedic Surgery of the Spine
DX: M54.16 Radiculopathy, lumbar region (principal); E78.5 Hyperlipidemia, unspecified; E55.9 Vitamin D deficiency, unspecified; R74.8 Abnormal levels of other serum enzymes
CPT/HCPCS: 36415; 80061; 82306; 84460; 95886; 95910

== ENCOUNTER → 2019-09-26 | Outpatient (CLI) | payer BC, SELFPAY ==
[2018-09-11 09:54] VITALS: BMI 34.7
--- NOTE | 2019-09-26 | IMM_PTH ---
PATIENT: MIKAELA RAMIREZ LOC: [facility] U#:[id number] AGE/SX: 44/F ROOM: RE09/26/[address]: Dr. Yomi Gandhi MD : 1975 BED: DIS: 09/26/2019 SPEC #: [id number] RECD: 09/28/19 10:55 STATUS: KENIA REQ #: [id number] HERIBERTO: 09/26/19 00:[address]: Yomi Gandhi DEPT: IMMUNOHISTOCHEMISTRY RECD BY: Yaquelin Vergara ENTERED: 09/28/19 10:56 SP TYPE: IMMUNO OTHR DR: Dr. Rubio Still MD Tissues: Endocervical Procedures: CK5-6 (initial) KI-67 (add) P16 (add) P40 (add) PHYSICIAN & INSTITUTION [place] [id number] SPECIMEN INFORMATION: Tissue Source: Endocervical curettage Clinical Info: D06.9, N87.0 Specimen Number: [id number] CPT code: 92070, 63968 x3 METHODOLOGY: Deparaffinized sections of prefer/formalin-fixed tissue or PAP/DQ stained slides are incubated with monoclonal/polyclonal antibodies/oligonucleotide probes. Localization is made via biotin free immunoperoxidase method. Appropriate controls are performed and reacted as expected. Results on target cell population are indicated in the following table: RESULTS: ANTIBODY / CLONE RESULT CK5-6 (D5 & 1684) positive P40 (BC28) positive P16 (E6H4) negative Ki-67 (30-9) negative These tests were developed and their performance characteristics determined by [facility]. They may not have been cleared or approved by the U.S. Food and Drug Administration. The FDA has determined that such clearance or approval is not necessary. The above immunohistochemical/dualISH markers are ordered and reviewed by the Pathologist. INTERPRETATION: Endocervical curettage: Consistent with squamous metaplasia. AM:cassie 10/01/19
--- NOTE | 2019-09-26 14:45 | ECC_PTH ---
PATIENT: MIKAELA RAMIREZ [facility] U#:[id number] AGE/SX: 44/F ROOM: RE09/26/[address]: Dr. Yomi Gandhi MD : 1975 BED: DIS: 09/26/2019 SPEC #: [id number] RECD: 09/26/19 15:46 STATUS: KENIA REJose J #: [id number] HERIBERTO: 09/26/19 14:[address]: Yomi Gandhi DEPT: SURGICAL PATHOLOGY RECD BY: Ricardo Valentino ENTERED: 09/27/19 11:20 SP TYPE: ECC JOSE DR: Dr. Rubio Still MD Tissues: Endocervical Procedures: Surgery Specimen Level IV HEADER OPERATION: [facility] PRE-OP DIAGNOSIS: D06.9, N87.0 TISSUE SUBMITTED: ECC MICROSCOPIC DIAGNOSIS Endocervix, curettings: Strips of benign superficial endocervix. Scant squamous metaplastic tissue. No evidence of dysplasia. AM:cassie 09/28/19 COMMENT Immunohistochemistry ([id number]) supports the above diagnosis. MICROSCOPIC DESCRIPTION Slides are reviewed. GROSS DESCRIPTION Received in fixative is one container labeled with the patient's name and designated endometrial biopsy. The specimen consists of light driscoll mucoid material aggregating to 2.1 x 1 x 0.2 cm. The specimen is totally submitted in one cassette. / AM:cassie 09/27/19 TC:2 CPT: 10454
[2019-10-02 12:18] LABS: HPV APTIMA, High Risk Negative (Negative); HPV Reflexed? YES, CHARGE PATIENT
== END | disposition home or self-care (01) ==
PROVIDERS: PCP Family Medicine; Referring Provider Obstetrics & Gynecology; Visit Provider Obstetrics & Gynecology
DX: D06.9 Carcinoma in situ of cervix, unspecified (principal); Z12.4 Encounter for screening for malignant neoplasm of cervix
CPT/HCPCS: 87624; 88175; 88305; 88341; 88342; G0145

== ENCOUNTER → 2019-09-28 16:38 | Outpatient (CLI) | payer BC, SELFPAY ==
[2018-09-11 09:54] VITALS: BMI 34.7
--- NOTE | 2019-09-28 16:44 | CT_ITS ---
STUDY: CT LUMBAR SPINE WITHOUT CONTRAST REASON FOR EXAM: Female, 44 years old. Lumbar radiculopathy, right sided pain worse than left, prior discectomy, multiple injections. RADIATION DOSAGE (If Supplied By Facility): CTDIvol = ( 21.48 ) mGy, DLP = ( 645.62 ) mGycm TECHNIQUE: The patient was scanned in a multi detector CT scanner. High resolution transaxial imaging was performed. Sagittal and coronal images were reconstructed. Individualized dose optimization techniques were used for this CT. COMPARISON: None FINDINGS: Normal lumbar lordosis. There is no substantial scoliosis. Normal vertebrae of the lumbar spine. L1-2: Normal endplates. Normal disc height and morphology. Normal bilateral facet joints. Normal central canal and bilateral lateral recesses. Normal bilateral intervertebral neural foramina. L2-3: Normal endplates. Normal disc height and morphology. Normal bilateral facet joints. Normal central canal and bilateral lateral recesses. Normal bilateral intervertebral neural foramina. L3-4: Endplate spondylosis. Decreased disc height and small circumferential disc bulge. Degenerative changes of the bilateral facet joints. Mild narrowing of the central canal and bilateral intervertebral neural foramina. L4-5: Endplate spondylosis. Partial laminectomy. Decreased disc height and small circumferential disc bulge. Degenerative changes of the bilateral facet joints. Mild narrowing of the central canal and bilateral intervertebral neural foramina. L5-S1: Endplate spondylosis. Decreased disc height and small circumferential disc bulge. Degenerative changes of the bilateral facet joints. Mild narrowing of the central canal and bilateral intervertebral neural foramina. Normal visualized paraspinous soft tissue structures. CT/Spine Lumbar without Contrast IMPRESSION: Multilevel degenerative changes, as described above. Electronically Signed: Cornelia Wooten, at 8:22 EST Tel , Service support ,
== END ==
PROVIDERS: PCP Family Medicine; Referring Provider Orthopaedic Surgery Orthopaedic Surgery of the Spine; Visit Provider Orthopaedic Surgery Orthopaedic Surgery of the Spine
DX: M54.16 Radiculopathy, lumbar region (principal)
CPT/HCPCS: 72131

== ENCOUNTER → 2019-12-31 12:24 | Outpatient (CLI) | payer BC, SELFPAY ==
[2018-09-11 09:54] VITALS: BMI 34.7
--- NOTE | 2019-12-31 12:28 | US_ITS ---
STUDY: THYROID ULTRASOUND REASON FOR EXAM: Female, 44 years old. THYROIDITIS TECHNIQUE: Ultrasound evaluation of the thyroid was performed with real-time and static sommer-scale imaging. COMPARISON: 08/16/2018 FINDINGS: RIGHT LOBE: The right lobe of the thyroid gland measures 4.7 x 1.3 x 1.3 cm. There is a homogeneous echotexture. There are no demonstrated solid, cystic or complex lesions. LEFT LOBE: The left lobe of the thyroid gland measures 5.1 x 1.7 x 1.1 cm. There is a homogeneous echotexture. There are no demonstrated solid, cystic or complex lesions. ISTHMUS: The isthmus measures 3 mm thick. . The regional lymph nodes are normal. US/Thyroid IMPRESSION: Normal ultrasound examination of the thyroid. Electronically Signed: Renato Narvaez MD at 15:12 EDT Tel , Service support ,
--- OUTSIDE RECORDS SUMMARY | 2020-05-27 12:21 | XMS RPT_ITS | CCD ---
:1975 External Reference #:[id number] Author Organization [facility] Care Team Providers Name Role Phone Unavailable Unavailable Unavailable Results Result Name Value Range Unit Interpretation Flag Date Location tsh on 2019-12-28 TSH Qn 2.17 mIU/L Normal 12-28-2019 [facility] ([id number]) Comment: Result Comment: Reference Ra nge > or = 20 Years 0.40-4.50 Ranges First trimester 0.26-2.66 Second trimester 0.55-2.73 Third trimester 0.43-2.91 Performed By: #### [id number], 866 , 899 #### [facility] [place] [address] Hooker Machine Tender: Elias thomas MD thyroid peroxidase antibodies on 2019-12-28 THYROID PEROXIDASE ANTIBODIES 1 <9 IU/mL Normal 12-28-2019 [facility] ([id number]) Comment: Performed By: #### Kiarra81, 866 , 899 #### [facility] [address] [employer]er Machine Tender: Elias thomas MD t4, free on 2019-12 Free T4 [Mass/Vol] 1.2 0.8-1.8 ng/dL Normal 12-28-2019 [facility] ([id number]) Comment: Performed By: #### Kiarra81, 866 , 899 #### [facility] [address] Hooker Machine Tender: Elias thomas MD xr foot 3v ap/lat/obl rt on 2019-09-13 XR FOOT 3V * * *Final Report* * * Normal 2019 [facility] AP/LAT/OBL RT DATE OF EXAM: Sep 13 2019 10:53AM Frausto WRX [id number] - XR FOOT 3V AP/LAT/OBL RT / ([id number]) PROCEDURE REASON: Pain * * * * Physician Interpretation * * * * Right foot HISTORY: 44 years old Clinical information: Pain pt states pain for months midfoot medial side of arch area, surg. in that area was in 2007. no inj TECHNIQUE: Images: XR FOOT 3V AP/LAT/OBL RT Comparison: 03/21/2018. RESULT: Findings: No acute fracture bony destruction. Stable appearance of fix ation pins in fifth metatarsal head with deformity consistent with riki te osteotomy or fracture of the fifth metatarsal neck. Joint spaces maint ained. IMPRESSION: Stable findings. Iron Pourer: PSCB Transcribe Date/Time: Sep 13 2019 3:21P Dictated by : BIGG SPEARS MD This examination was interpreted and the report reviewed and electronically signed by: BIGG SPEARS MD on Sep 13 2019 3:22PM EST [id number] progress on 2019-08 PROGRESS HNO ID: [id number] Normal 09-13-2019 [facility] Author: Sunita Frausto ([id number]) Service: ? Author Type: Physician Type: Progress Notes Filed: 09/13/2019 12:27 PM Note Text: Chief Complaint: This 44 year old female who presents with [facility] complaint:painful bump to right foot HPI Patient presents to clinic for evaluation of right foot. Kell go notices a bump to the medial aspect of right foot that has been pres ent for about one week. Patient denies any injury. Patient states there is pain and the pain is 6/10. Patient does take narcotic medication for fibromyalgia which does not help. Patient does have custom orthotics that does help. Patient did see me in 2018 for pain in the dorsal region of right foot and that pain has subsided. PAIN EVALUATION 09/13/2019 1055 Pain Level: 6 Pain Location: Foot-Right Description: Aching Duration Amount of Time: 6 Duration Units: Months Frequency: Continuous Intervention: Medication No results found for: HBA1C PCP: Rubio Still MD PAST MEDICAL HISTORY Diagnosis Date - Anxiety - Complication of anesthesia - Constipation - Fatigue - Fibromyalgia - Hypothyroid - Insomnia - Mental disorder - Nausea - Psoriasis - Snoring Current Outpatient Medications Medication Sig - buPROPion SR (ZYBAN SR; WELLBUTRIN SR) 150 mg 12 hr tablet Take 150 mg by mouth twice daily. - ergocalciferol, vitamin D2, (DRISDOL) 50,000 unit capsule Take 5,000 Units by mouth once each week. - ALPRAZolam (XANAX) 0.5 mg tablet Take 0.5 mg by mouth at b edtime as needed. - naproxen (NAPROSYN) 500 mg tablet Take 500 mg by mouth twi ce daily as needed. - HYDROcodone-acetaminophen (NORCO) 5-325 mg per tablet Take 1 tablet by mouth every 6 hours as needed. - oxyCODONE-acetaminophen (PERCOCET) 5-325 mg tablet EVERY 6 HOURS NEEDED PRN For Pain - Prasterone, DHEA, 25 mg cap Take 5 mg by mouth once daily. - progesterone micronized (PROMETRIUM) 100 mg capsule Take 1 00 mg by mouth. - BUPROPION HCL (WELLBUTRIN ORAL) Take by mouth. Pt unsure o f dose- takes BID No current facility-administered medications for this visit. [...] HISTORY Problem Relation Age of Onset - other (high cholesterol) Mother - Arthritis Paternal Grandfather Social History Tobacco Use - Smoking status: Never Smoker - Smokeless tobacco: Never Used Substance Use Topics - Alcohol use: No - Drug use: No REVIEW OF SYSTEMS GENERAL: Negative for Malaise, significant weight loss, feve r RESPIRATORY: Negative for cough, wheezing and shortness of b reath CARDIOVASCULAR: Negative for chest pain, leg swelling and pa lpitations GI: Negative for abdominal discomfort, blood in stools or bl ack stools and change in bowel habits : Negative for dysuria, frequency and incontinence MUSCULOSKELETAL: Negative for joint pain or swelling, back p ain, and muscle pain. SKIN: Negative for lesions, rash, and itching. HEMATOLOGY/LYMPHOLOGY Negative for prolonged bleeding, bruis ing easily, and swollen nodes. ENDOCRINE: Negative for cold or heat intolerance, polyuria, polydipsia and goiter. NEURO: negative Physical Exam: Constitutional: Pt is a well developed 44 year old female wh o is alert, oriented and cooperative Eyes: Following during examination. No redness or drainage. Respiratory: RR normal and nonlabored. Even breathing. No ev idence of distress or shortness of breath. Psychology: Patient is engaged during conversation. Normal a ffect and mood. Does not appear depressed or anxious during encounter. Vascular: Dorsalis pedis and posterior tibial pulses palpable as b/l Capillary Fill time < 5 seconds to digits 1-5 b/l Skin temperature warm to warm proximal to distal b/l Hair growth present to digits Neurological: intact light touch/epicritic sensation b/l intact protective sensation no significant neurological deficits Dermatological: Nails 1-5 b/l appear normal. Webspaces clean and dry 1-4 b/l . Skin appears well hydrated and supple. good color, texture, turgor. No op en lesions present. No callosities present. Musculoskeletal/Orthopaedic: Patient has pain to palpation of right medial arch along benjamin icular tuberosity Foot type is neutral structurally AJ ROM is full with knee extended and flexed 1st MPJ is full when loaded and no pain or crepitus are note d with ROM. MTJ, STJ are full and free of pain and crepitus. +5/5 muscle strength dorsiflexion, plantarflexion, inversion , eversion b/l Radiographs: 3 views right foot ordered September 13, 2019: I have personally reviewed and interpreted these XR myself: No acut e findings. Prominent navicular noted on right foot ASSESSMENT: (M76.821) Posterior tibial tendinitis of right lower extremi ty (primary encounter diagnosis) PLAN: 1. History and physical examination performed. 2. XR reviewed with patient and interpreted today 3. Discussed patient concern of palpable bump to right foot. Suspect this is normal anatomy. Offered repeat xray with metal bb to iden tify source of pain. She declined. 4. Will prescribe oral steroid 5. Offered boot but she has elected to continue with custom inserts. If pain fails to improve, consider boot. 6. F/u in 3 weeks Sunita James DPM Podiatry [address] [facility] [facility] [address] Dept: [phone] Dept PROGRESS HNO ID: [id number] Normal 09-13-2019 [facility] Author: Marilyn Awad [facility] ([id number]) Service: ? Author Type: ? Type: Progress Notes Filed: 09/13/2019 12:27 PM Note Text: AMB ROOMING INTAKE FLOWSHEET DATA Risk Screening Do you have concerns about personal safety or safety in the home?: No Pain Pain Level: 6 Pain Location: Foot-Right Description: Aching Duration Amount of Time: 6 Duration Units: Months Frequency: Continuous Intervention: Medication Patient presents with: Right Foot - New, Bump Pt. Reports bump to right medial arch. Pt. Reports noticing bump about a week ago. PROGRESS HNO ID: [id number] Normal 09-13-2019 [facility] Author: Gayatri Ge (Rt) Dulce Cerda Thompson ([id number]) Service: ? Author Type: Paving Inspector Type: Progress Notes Filed: 09/13/2019 10:54 AM Note Text: Radiology Service Progress Note PATIENT NAME: Ivana Ramirez DATE OF SERVICE: September 13, 2019 TIME: 10:46 AM PATIENT IDENTITY VERIFICATION COMPLETED USING TWO (2) IDENTI FIERS: Name and Date of confirmed by patient verbally. PATIENT GENDER DATA: Female. status: : No status: NO. PATIENT RELEVANT IMPLANT DATA REVIEWED: Not Applicable RADIOLOGY DEPARTMENT: General X-ray: Exam(s) Completed: Paula rice Extremity X-Ray(s): Foot, Right: PERIPHERAL IV DATA: Not applicable SIGNED BY: RT Mary Ann September 13, 2019 10:46 AM cnov on 2019-09-13 CNOV Office Visit (PODIWS) Normal 09-13-[address] [place] [address] [facility] IVANA RAMIREZ ([id number]) 1975 [facility] Date Time Provider Department ([id number]) 09/13/19 11:00 AM SUNITA JAMES PODIWS During your visit today, we recorded the following informati on about you: Marilyn Awad Ns 09/13/2019 12:27 PM Signed AMB ROOMING INTAKE FLOWSHEET DATA Risk Screening Do you have concerns about personal safety or safety in the home?: No Pain Pain Level: 6 Pain Location: Foot-Right Description: Aching Duration Amount of Time: 6 Duration Units: Months Frequency: Continuous Intervention: Medication Patient presents with: Right Foot - New, Bump Pt. Reports bump to right medial arch. Pt. Repor ts noticing bump about a week ago. Sunita James DPM 09/13/2019 12:27 PM Signed Chief Complaint: This 44 year old female who presents with c hief complaint:painful bump to right foot HPI Patient presents to clinic for evaluation of right foot. Kell go notices a bump to the medial aspect of right foot that has been pres ent for about one week. Patient denies any injury. Patient states there is pain and the pain is 6/10. Patient does take narcotic medication for fibromyalg ia which does not help. Patient does have custom orthotics that does help. Lety bingham did see me in 2018 for pain in the dors al region of right foot and that pain has subsided. PAIN EVALUATION 09/13/2019 1055 Pain Level: 6 Pain Location: Foot-Right Description: Aching Duration Amount of Time: 6 Duration Units: Months Frequency: Continuous Intervention: Medication No results found for: HBA1C PCP: Rubio Still MD PAST MEDICAL HISTORY Diagnosis Date - Anxiety - Complication of anesthesia - Constipation - Fatigue - Fibromyalgia - Hypothyroid - Insomnia - Mental disorder - Nausea - Psoriasis - Snoring Current Outpatient Medications Medication Sig - buPROPion SR (ZYBAN SR; WELLBUTRIN SR) 150 mg 12 hr tabl et Take 150 mg by mouth twice daily. - ergocalciferol, vitamin D2 , (DRISDOL) 50,000 unit capsule Take 5,000 Units by mouth once each week. - ALPRAZolam (XANAX) 0.5 mg tablet Take 0.5 mg b y mouth at bedtime as needed. - naproxen (NAPROSYN) 500 mg tablet Take 500 mg by mouth twice daily as needed. - HYDROcodone-acetaminophen (NORCO) 5-32 5 mg per tablet Take 1 tablet by mouth every 6 hours as needed. - oxyCODONE-acetaminophen (PERCOCET) 5-325 mg tablet E VERY 6 HOURS NEEDED PRN For Pain - Prasterone, DHEA, 25 mg cap Take 5 mg by mouth once daily. - progesterone micronized (PROMETRIUM) 100 mg capsule Take 100 mg by mouth. - BUPROPION HCL (WELLBUTRIN ORAL) Take by mouth. Pt unsure of dose- takes BID No current facility-administered medications for this visit. [...] HISTORY Problem Relation Age of Onset - other (high cholesterol) Mother - Arthritis Paternal Grandfather Social History Tobacco Use - Smoking status: Never Smoker - Smokeless tobacco: Never Used Substance Use Topics - Alcohol use: No - Drug use: No REVIEW OF SYSTEMS GENERAL: Negative for Malaise, significant weight loss, feve r RESPIRATORY: Negative for cough, wheezing and shortness of b reath CARDIOVASCULAR: Negative for chest pain, leg swelling and pa lpitations GI: Negative for abdominal discomfort, blood in stools or bl ack stools and change in bowel habits : Negative for dysuria, frequency and incontinence MUSCULOSKELETAL: Negative for joint pain or swelling, back pain, and muscle pain. SKIN: Negative for lesions, rash, and itching. HEMATOLOGY/LYMPHOLOGY Negative for prolonged bleeding, bru ising easily, and swollen nodes. ENDOCRINE: Negative for cold or heat intolerance, polyuria, polydipsia and goiter. NEURO: negative Physical Exam: Constitutional: Pt is a well developed 44 year old female wh o is alert, oriented and cooperative Eyes: Following during examination. No redness or drainage. Respiratory: RR normal and nonlabored. E logan breathing. No evidence of distress or shortness [...] to digits Neurological: intact light touch/epicritic sensation b/l intact protective sensation no significant neurological deficits Dermatological: Nails 1-5 b/l appear normal. Webspaces clean and dry 1-4 b/l. Skin appears well hydrated and supple. good color, texture, turgor . No open lesions present. No callosities present. Musculoskeletal/Orthopaedic: Patient has pain to palpation of right medial ar ch along navicular tuberosity Foot type is neutral structurally AJ ROM is full with knee extended and flexed 1st MPJ is full when loaded and no pain or crepitus are note d with ROM. MTJ, STJ are full and free of pain and crepitus. +5/5 muscle strength dorsiflexion, plantarflexion, inversion , eversion b/l Radiographs: 3 views right foot ordered September 13, 2019: I have personally reviewed and interpreted these XR myself: No acute findings. Prominent navicular noted on right foot ASSESSMENT: (M76.821) Posterior tibial tendinitis of right lower extremi ty (primary encounter diagnosis) PLAN: 1. History and physical examination performed. 2. XR reviewed with patient and interpreted today 3. Discussed patient concern of palpable bump to right foot. Suspect this is normal anatomy. Offered repeat xray with metal b b to identify source of pain. She declined. 4. Will prescribe oral steroid 5. Offered boot but she has elected to continue with c ustom inserts. If pain fails to improve, consider boot. 6. F/u in 3 weeks Sunita James DPM Podiatry [address] [facility] [address] Dept: [phone] Dept Referring Provider: SUNITA JAMES [[id number]] Allergies As of Date: 09/13/2019 Noted Allergy Reaction EFFEXOR (VENLAFAXINE) 05/07/2014 14 - Other: See Comments Comments: Rash (black and blue raised lumps) NEURONTIN (GABAPENTIN) 05/07/2014 8 - GI Upset Date Reviewed: 09/13/2019 Reviewed by: Marilyn Baker - Fully Assessed Reason for Visit: New [[id number]] Bump [[id number]] Primary Visit Diagnosis:Posterior tibial tendinitis of right lower extremity [M76.821] Order(s):methylPREDNISolone (MEDROL, MEME,) 4 mg Dose-PackTak e as directedDisp: 1 PackageRfl: 0 Prescriptions as of 09/13/2019 Sig: BUPROPION HCL SR 150 MG TABLE* Take 150 mg by mouth twice da * ERGOCALCIFEROL (VITAMIN D2) 1* Take 5,000 Units by mouth onc * ALPRAZOLAM 0.5 MG TABLET Take 0.5 mg by mouth at bedti* NAPROXEN 500 MG TABLET Take 500 mg by mouth twice da* HYDROCODONE 5 MG-ACETAMINOPHE* Take 1 tablet by mouth every * METHYLPREDNISOLONE 4 MG TABLE* Take as directed OXYCODONE-ACETAMINOPHEN 5 MG-* EVERY 6 HOURS NEEDED PRN F * PRASTERONE (DHEA) 25 MG CAPSU* Take 5 mg by mouth once daily . PROGESTERONE MICRONIZED 100 M* Take 100 mg by mouth. WELLBUTRIN ORAL Take by mouth. Pt unsure of * Problem List As Of Date: 09/13/2019 (None) Prescriptions ordered this encounter Disp Refills Start End METHYLPREDNISOLONE 4 MG TABLETS IN A* 1 Pa* 0 09/13/2019 Sig: Take as directed Disposition: Return in about 4 weeks (around 10/11/2019) for posterior tibial tendonitis, RLE. Follow-up and Disposition History Recorded Encounter Status:Closed by SUNITA JAMES DPM on 09/13/19 Summary Purpose Family History No Family History Records FoundNo Family History Records Found Advance Directives No Advanced Directives Records FoundNo Advanced Directives Records Found Additional Source Comments FOR RECORDS PERTAINING TO PATIENTS WHO ARE OR HAVE BEEN ENROLLED IN A CHEMICAL DEPENDENCY/SUBSTANCE ABUSE PROGRAM, SOME INFORMATION MAY BE OMITTED. This clinical summary was aggregated from multiple sources. Caution should be exercised in using it in the provision of clinical care. This summary normalizes information from multiple sources, and as a consequence, information in this document may materially changethe coding, format and clinical context of patient data. In addition, data may be omittedin some cases. CLINICAL DECISIONS SHOULD BE BASED ON THE PRIMARY CLINICAL RECORDS. [facility] provides no warranty or guarantee of the accuracy or completeness of information in this document. UNRECOGNIZED CONTENT PROVIDED BELOW FOR UNRECOGNIZED SECTION INFORMATION SOURCE DATE CREATED AUTHOR AUTHOR'S ORGANIZATIO N 09/13/2019 [facility] DATE CREATED AUTHOR AUTHOR'S ORGANIZATIO N 12/28/2019 [employer]
== END ==
PROVIDERS: PCP Family Medicine; Referring Provider Family Medicine; Visit Provider Family Medicine
DX: E06.0 Acute thyroiditis (principal)
CPT/HCPCS: 76536

== ENCOUNTER 2020-03-05 04:24 | Observation (INO) | payer BC, SELFPAY ==
[2018-09-11 09:54] VITALS: BMI 34.7
[2020-03-05] VITALS (7 sets, daily range): BP systolic 95–142; BP diastolic 52–99; PULSE 60–78; RESP 14–18; TEMP 36.3–37.2; O2SAT 98–100; BMI 34.3; BMI 34.1
--- NOTE | 2020-03-05 04:44 | ED.DCSUM_ITS ---
History of Present Illness Chief Complaint: Dizziness Informant: Patient Onset: Hours - 1 Context: Sudden Onset - triggered as she was getting out of bed Timing: Continuous Quality: spinning Location: head Current Severity: Moderate Maximum Severity: Severe Worsened by: moving head, especially by tilting chin up/lying back Relieved by: remaining still w/ head down Associated Symptoms: nausea. no vomiting. Narrative: Sudden onset as she got out of bed. No recent upper respiratory tract infections or symptoms of those now. No fevers or other illness. No tinnitus, headache, or other acute ear symptoms. She chronically gets quite a bit of otorrhea from the left ear, nothing different recently. No history of stroke. No recent head injury. No symptoms in her arms or legs, just trouble walking due to spinning. She crawled to the bathroom so that she did not fall. No neck pain. No recent new medications. - Past Medical History (1) Fibromyalgia Status: Chronic Past Medical History - Allergies and Home Meds Allergies/Adverse Reactions: Allergies gabapentin [From Neurontin] Adverse Reaction (Verified 03/05/20 04:31) Upset Stomach venlafaxine [From Effexor] Adverse Reaction (Verified 03/05/20 04:31) Unknown Primary Care Physician: Juancarlos Pickett MD [STAFF PHYSICIAN] - 3-5 Days if not improving Rubio Still MD [Primary Care Provider] - Lives: Spouse/ Significant Other Smoking Status: Never smoker Alcohol: Occasional Review of Systems General: Denies: Chills, Fever, Sweats Eyes: Denies: Visual changes - bilaterally, Diplopia ENT: Denies: Rhinorrhea, Sore throat Cardiovascular: Denies: Chest pain, Palpitations Respiratory: Denies: Dyspnea, Cough, Dyspnea on exertion Gastrointestinal: Reports: Nausea. Denies: Abdominal pain, Vomiting, Diarrhea, Melena, Hematochezia Genitourinary: Denies: Dysuria, Hematuria, Frequency Musculoskeletal: Denies: Back pain, Swelling, Extremity Pain Skin: Denies: Rash, Wounds Neurological: Reports: - - Vertigo. See HPI.. Denies: Headache, Weakness, Numbness Physical Exam Vital Signs/Narrative: Vital Signs Temp Pulse Resp BP Pulse Ox 03/05/20 04:26 97.4 F L 78 16 142/99 H 100 Inital Vital Signs reviewed: Yes General: Well nourished, Well developed, No Acute Distress - But holding head with chin down, uncomfortable Head: Normocephalic, Atraumatic Eyes: Perrl, EOMI, - - No vertical, rotatory, or non-fatigable horizontal nystagmus ENT: Moist mucous membranes, No rhinorrhea, TM's clear - Hard cerumen left ear, not completely impacted. Negative for: Sinus tenderness Neck: Supple, Nontender, No lymphadenopathy Cardiovascular: Regular rate, Regular rhythm, No murmurs Respiratory: No distress, CTA bilaterally, Chest nontender Abdomen: Soft, Nontender, Nondistended, Normal bowel sounds Back: Nontender, Normal Inspection Extremities: Nontender, No edema Skin: Normal color, No rash, No Trauma Neurological: Alert, Oriented x3, Cranial nerves II-XII grossly intact, Normal Strength, Normal Sensation, - - Normal imrahy-yo-xotv and zlre-gx-ghat bilaterally. Psychological: Normal affect, Normal Mood Diagnostic/Tx/Re-eval - Medical Decision Making Patient was initially treated with oral Zofran, Ativan, meclizine. She moved to a different position, and still said that she was symptomatic and felt like if she moved she was very dizzy and nauseated, now feeling like it is definitely worse if she moves her head to the right but not the left. She was then treated with IM Phenergan. Advised the patient that if and when she feels like she can safely go home, I would be happy to allow her along with some prescriptions. We also discussed doing the Kiesha maneuver, but she was not up for that at this t lizbeth. Referred to ENT if she does not have symptoms resolved. ED Disposition - Plan for ED Patient: Disposition: Home or Assisted Living Diagnosis: Peripheral vertigo involving right ear Instructions: ED BPV Vertigo, ED Vertigo Unspecified Prescriptions: Meclizine HCl [Antivert] 25 mg PO Q8H PRN #16 tab PRN Reason: Vertigo Transmission Status: [id number] proMETHazine tablet [Phenergan tablet] 25 mg PO Q6H PRN PRN #20 tab PRN Reason: nausea/vomiting/vertigo Transmission Status: [id number] Referrals: Rubio Still MD [Primary Care Provider] - Juancarlos Pickett MD [STAFF PHYSICIAN] - 3-5 Days if not improving
[2020-03-05] MEDS: LORazepam 1 MG Tablet PO (04:53)
[2020-03-05] MEDS: Ondansetron ODT 4 MG Tablet 8 MG PO (04:53)
[2020-03-05] MEDS: Meclizine HCl 25 MG Tablet PO ×4 (04:53→22:57)
[2020-03-05] MEDS: proMETHazine 25 MG/ML Syringe 12.5 MG IM (06:18)
[2020-03-05] MEDS: diazePAM 5 MG Tablet 2.5 MG PO ×2 (09:04→12:34)
--- NOTE | 2020-03-05 09:15 | ED.RN ---
PT STATES THAT SHE STILL FEELS NAUSEA AND EXTREME DIZZINESS WHEN MOVING HEAD. PHYSICIAN NOTIFIED AND PT MEDICATED. WILL CONTINUE TO MONITOR.
--- NOTE | 2020-03-05 11:11 | CT_ITS ---
STUDY: CT BRAIN WITHOUT CONTRAST REASON FOR EXAM: Female, 45 years old. Headache, dizziness RADIATION DOSAGE (If Supplied By Facility): CTDIvol = ( 44.99 ) mGy, DLP = ( 745.49 ) mGycm TECHNIQUE: Transaxial CT imaging of the brain was performed without administration of intravenous contrast material. Individualized dose optimization techniques were used for this CT. COMPARISON: 2016 FINDINGS: Normal soft tissue structures. Normal calvarium. Normal size ventricles and extra-axial spaces for the patient''s age. Normal white matter tracts of the cerebral hemispheres. Normal basal ganglia and thalami. Normal brainstem. Normal cerebellum. There is no intracranial hemorrhage. There are no findings of an acute ischemic infarction. Normal visualized paranasal sinuses. CT/Brain/Head without Contrast IMPRESSION: Normal unenhanced CT scan of the brain. Electronically Signed: Callum Stewart MD at 11:38 EDT , Service support ,
[2020-03-05 11:59] LABS: Absolute Lymphocyte Count 2.32 X10^3/uL (0.83-4.51); Absolute Neutrophil Count 3.8 X10^3/uL (2.0-7.7); Basophil# 0.01 X10^3/uL; Basophil% 0.2 % (0-1); Eosinophil# 0.01 X10^3/uL; Eosinophils% 0.2 % (0-5); Hematocrit 43.4 % (37-47); Hemoglobin 14.1 g/dL (12.0-15.0); Lymphocyte # 2.32 X10^3/ul (4.0); Lymphocyte % 36.3 % (19-41); Mean Corp Hgb Conc 32.5 g/dL (32-36); Mean Corpuscular Hgb 29.4 pg (27.0-32.0); Mean Corpuscular Volume 90.4 fL (81-99); Mean Platelet Vol. 9.1 fl (6.2-12.0); Monocyte# 0.28 X10^3/uL; Monocyte% 4.4 % (0-10); NRBC Flagged by Analyzer 0 % (0-5); Neutrophil # 3.76 X10^3/uL (2.7-7.7); Neutrophil % 58.7 % (47-70); Platelet Count 332 K/mm3 (150-450); RBC Distribution Width CV 12.7 % (11.6-14.6); RBC Distribution Width SD 41.8 fl (35.1-43.9); White Blood Count 6.4 K/mm3 (4.4-11.0)
[2020-03-05 12:10] LABS: Internal QC Validated? YES +Cl - CLEAR BKGD; Pregnancy, Serum, hCG Quali. NEGATIVE Negative
[2020-03-05 12:20] LABS: ALB/GLOB Ratio 0.8 RATIO (0.9-2.4); AST(SGOT) 21 U/L (15-37); Alanine Aminotransfer ALT/SGPT 28 U/L (13-56); Albumin, Serum 3.6 g/dL (3.2-5.0); Alkaline Phosphatase 96 U/L (45-117); Anion Gap 3 (5-15); BUN 13 mg/dL (7-18); BUN/Creat Ratio 19.9 RATIO (10-20); Chloride 105 mmol/L (98-107); Creatinine, Serum 0.65 mg/dL (0.55-1.02); EST Glomerular Filtration Rate 104 mL/min (>60); Est Glom Filt Rate - Afr Amer 126 mL/min (>60); Estimated Creatinine Clearance 86.44 ml/min; Globulin 4.4 g/dL (2.2-4.2); Glucose 87 mg/dL (74-106); Potassium 3.8 mmol/L (3.5-5.1); Sodium Level 137 mmol/L (136-145)
[2020-03-05 12:47] LABS: Bacteria 0 SEEN /hpf (None Seen); Mucous, Urine 0 SEEN /hpf (<or=2+); Red Blood Cells-Urine 0 SEEN /hpf (0-5); White Blood Cells 0 SEEN /hpf (0-5)
[2020-03-05 12:52] LABS: Color, Urine Yellow (Yellow); Glucose, Dipstick Normal (Normal); Ketone-Dipstick Negative (Negative); Leukocyte Esterase-Dipstick Negative /ul (Negative); Nitrite-Dipstick Negative (Negative); Occult Blood-Urine 10 /ul (Negative); Protein-Dipstick Negative (Negative); Urine Bilirubin Dipstick Negative (Negative); Urine Clarity Clear (Clear); Urine Urobilinogen Normal (Normal)
[2020-03-05 13:02] LABS: Squamous Epithelial Cells - UA 5-10 SEEN /hpf (5-10)
--- NOTE | 2020-03-05 13:29 | NURSING ---
DR BARBER FOR DR BECKETT
--- NOTE | 2020-03-05 13:35 | NURSING ---
MED SURG OBS KOTSOINIS INTRACTABLE VERTIGO
--- NOTE | 2020-03-05 14:52 | PCM.HP.STD ---
<Izzy Zabala - Last Filed: 03/05/20 15:19> Problem List (1) Fibromyalgia Status: Chronic (2) Peripheral vertigo involving right ear Status: Acute (3) Sinusitis Status: Resolved Qualifiers: Sinusitis location: frontal Chronicity: acute Recurrence: non-recurrent Qualified Code(s): J01.10 - Acute frontal sinusitis, unspecified; J01.10 - Acute frontal sinusitis, unspecified (4) Hyperlipidemia Status: Chronic History of Present Illness Date of Admission: 03/05/20 Chief Complaint: Dizziness. The patient is a 45 year old F who presents emergency room due to dizziness. Patient states her dizziness came on suddenly around 1 AM. She states she feels like the room is spinning and has associated nausea without emesis. Dizziness is worsened by movement. Denies history of vertigo. Denies vision changes or neurologic deficits. She states her allergies have been bad lately. Otherwise denies recent illness or other associated symptoms. She has a past medical history of fibromyalgia, chronic back pain, hyperlipidemia. Past Medical History Past Medical History (Chronic Problems): Chronic Problems (Last Updated 08/19/17 @ 14:53 by Liliana Vick) Fibromyalgia (Chronic) Hyperlipidemia (Chronic) Medical History: Medical History (Last Updated 08/19/17 @ 14:53 by Liliana Vick) Back pain M54.9 Fatigue R53.83 Fibromyalgia M79.7 Hemorrhoids K64.9 Migraines G43.909 Shoulder pain M25.519 Allergies gabapentin [From Neurontin] Adverse Reaction (Verified 03/05/20 04:31) Upset Stomach venlafaxine [From Effexor] Adverse Reaction (Verified 03/05/20 04:31) Unknown Home Medications: Ambulatory Orders Medication Instructions Recorded Alprazolam 0.5 mg PO TID PRN 11/24/16 pravastatin 10 mg tablet 10 mg PO QHS 08/19/17 Bupropion HCl [Bupropion HCl Sr] 150 mg pe PO DAILY 09/04/18 Hydrocodone/Acetaminophen 1 tab PO Q6H PRN PRN 09/04/18 [Hydrocodone-Acetamin 5-325 mg] Naproxen 500 mg PO DAILY 09/04/18 Meclizine HCl [Antivert] 25 mg PO Q8H PRN #16 tab 07/22/20 proMETHazine tablet [Phenergan 25 mg PO Q6H PRN PRN #20 tab 03/05/20 tablet] Surgical History: Surgical History (Last Reviewed 03/05/20 @ 14:57 by CARLO Arenas) H/O foot surgery Z98.890 H/O removal of cyst Z98.890 Hx of cholecystectomy Z98.890, Z90.49 Surgical History: - - Cholecystectomy, right foot surgery x2, lumbar back surgery. Psychiatric History: Anxiety, Depression [employer]ATE History: No pertinent [employer]ATE history Lives: Spouse/ Significant Other Smoking Status: Never smoker Alcohol: Occasional Drugs: None - *Family History Maternal History Items: High Cholesterol Paternal History Items: - - Denies known paternal medical history including cardiac history. Review of Systems Constitutional: Denies: Chills, Fever, Weight Change HEENT: Denies: Head Aches, Sinus Congestion, Sinus Drainage Cardiovascular: Denies: Chest Pain, Palpitations Respiratory: Denies: Cough, Shortness of breath at rest, Sputum production Gastrointestinal: Denies: Abdominal Pain, Nausea, Vomiting Genitourinary: Denies: Dysuria Musculoskeletal: Denies: Joint Pain, Joint Tenderness Skin: Denies: Rash, Wounds Neurological: Reports: - - Dizziness. Denies: Focal weakness, Numbness, Tingling Psychiatric: Reports: Anxiety, Depression Hematologic/ Lymphatic: Denies: Easy Bruising, Easy Bleeding VTE Information - Inpt Only VTE Present on Admission: No VTE Mechan Device Prophylaxis: None VTE Pharm Prophylaxis ordered?: Yes Patient Problems: Active and Suspected Problems (Last Updated 08/19/17 @ 14:53 by Liliana Vick) Peripheral vertigo involving right ear (Acute) - Physical Exam Vitals/I&O's: Vital Signs Temp Pulse Resp BP Pulse Ox 98.5 F 60 15 95/52 L 98 03/05/20 14:32 03/05/20 14:32 03/05/20 14:32 03/05/20 14:32 03/05/20 14:32 Oxygen Delivery Method Room Air Weight: 187 lb 13.341 oz Body Mass Index (BMI) 34.3 General: Alert, Oriented x3, Cooperative HEENT: Atraumatic, PERRLA, EOMI, Normocephalic Neck: Supple, No JVD, Negative Carotid Bruits Lungs: Clear to auscultation, Normal air movement Cardiovascular: Regular rate, No murmurs Abdomen: Bowel Sounds Present, Soft, Non Tender, Non-Distended Extremities: No clubbing, No cyanosis, No edema, Capillary Refill Less than 3 Seconds Skin: No rashes, No breakdown Musculoskeletal: No Tenderness to Palpation of Joints or Extremities Neurological: Cranial nerves II-XII grossly intact Psych/Mental Status: Normal Affect, Appropriate Laboratory Results 03/05/20 11:40: WBC 6.4, RBC 4.80, Hgb 14.1, Hct 43.4, MCV 90.4, MCH 29.4, MCHC 32.5, RDW Std Deviation 41.8, RDW Coeff of [place] 12.7, Plt Count 332, MPV 9.1, Immature Gran % (Auto) 0.200, Neut % (Auto) 58.7, Lymph % (Auto) 36.3, Burt % (Auto) 4.4, Eos % (Auto) 0.2, Baso % (Auto) 0.2, Absolute Neuts (auto) 3.8, Absolute Lymphs (auto) 2.32, Nucleated RBC % 0 03/05/20 11:40: Sodium 137, Potassium 3.8, Chloride 105, Carbon Dioxide 29.0, Anion Gap 3 L, BUN 13, Creatinine 0.65, Estim Creat Clear Calc 86.44, Est GFR (MDRD) Af Amer 126, Est GFR (MDRD) Non-Af 104, BUN/Creatinine Ratio 19.9, Glucose 87, Calcium 9.0, Total Bilirubin 0.40, AST 21, ALT 28, Alkaline Phosphatase 96, Total Protein 8.0, Albumin 3.6, Globulin 4.4 H, Albumin/Globulin Ratio 0.8 L 03/05/20 11:40: Serum , Qual NEGATIVE 03/05/20 12:40: Urine Color Yellow, Urine Clarity Clear, Urine pH 6.0, Ur Specific [place] 1.010, Urine Protein Negative, Urine Glucose (UA) Normal, Urine Ketones Negative, Urine Occult Blood 10 H, Urine Nitrite Negative, Urine Bilirubin Negative, Urine Urobilinogen Normal, Ur Leukocyte Esterase Negative, Urine RBC 0 SEEN, Urine WBC 0 SEEN, Ur Squamous Epith Cells 5-10 SEEN, Urine Bacteria 0 SEEN, Urine Mucus 0 SEEN Assessment/Plan All Active Problems (Last Updated 08/19/17 @ 14:53 by Liliana Vick) Peripheral vertigo involving right ear (Acute) Sinusitis (Resolved) 1. Vertigo, BPPV-brain CT normal. Scheduled meclizine. PT for vestibular therapy. 2. Hyperlipidemia-continue statin. 3. Fibromyalgia-continue home medication regimen. 4. Chronic back pain-patient reports recent increase in back pain. Continue home PRN regimen. DVT prophylaxis-not indicated, low risk This patient was seen by CARLO Arenas under the supervision of Dr. Kirkland. <Vernon Kirkland F - Last Filed: 03/05/20 19:27> History of Present Illness The patient is a 45 year old F [] Past Medical History Medical History: Medical History (Last Updated 08/19/17 @ 14:53 by Liliana Vick) Back pain M54.9 Fatigue R53.83 Fibromyalgia M79.7 Hemorrhoids K64.9 Migraines G43.909 Shoulder pain M25.519 Allergies gabapentin [From Neurontin] Adverse Reaction (Verified 03/05/20 04:31) Upset Stomach venlafaxine [From Effexor] Adverse Reaction (Verified 03/05/20 04:31) Unknown Surgical History: Surgical History (Last Reviewed 03/05/20 @ 14:57 by CARLO Arenas) H/O foot surgery Z98.890 H/O removal of cyst Z98.890 Hx of cholecystectomy Z98.890, Z90.49 - Physical Exam Vitals/I&O's: Vital Signs Temp Pulse Resp BP Pulse Ox 98.9 F 68 16 110/55 L 99 03/05/20 15:05 03/05/20 15:05 03/05/20 15:05 03/05/20 15:05 03/05/20 15:05 Oxygen Delivery Method Room Air Weight: 186 lb 8 oz Body Mass Index (BMI) 34.1 Intake and Output for Last 24 Hours 03/03/20 03/04/20 03/05/20 23:59 23:59 23:59 Intake Total 400 / 400 Output Total 400 / 400 Balance 0 / 0 Laboratory Results 03/05/20 11:40: WBC 6.4, RBC 4.80, Hgb 14.1, Hct 43.4, MCV 90.4, MCH 29.4, MCHC 32.5, RDW Std Deviation 41.8, RDW Coeff of [place] 12.7, Plt Count 332, MPV 9.1, Immature Gran % (Auto) 0.200, Neut % (Auto) 58.7, Lymph % (Auto) 36.3, Burt % (Auto) 4.4, Eos % (Auto) 0.2, Baso % (Auto) 0.2, Absolute Neuts (auto) 3.8, Absolute Lymphs (auto) 2.32, Nucleated RBC % 0 03/05/20 11:40: Sodium 137, Potassium 3.8, Chloride 105, Carbon Dioxide 29.0, Anion Gap 3 L, BUN 13, Creatinine 0.65, Estim Creat Clear Calc 86.44, Est GFR (MDRD) Af Amer 126, Est GFR (MDRD) Non-Af 104, BUN/Creatinine Ratio 19.9, Glucose 87, Calcium 9.0, Total Bilirubin 0.40, AST 21, ALT 28, Alkaline Phosphatase 96, Total Protein 8.0, Albumin 3.6, Globulin 4.4 H, Albumin/Globulin Ratio 0.8 L 03/05/20 11:40: Serum , Qual NEGATIVE 03/05/20 12:40: Urine Color Yellow, Urine Clarity Clear, Urine pH 6.0, Ur Specific [place] 1.010, Urine Protein Negative, Urine Glucose (UA) Normal, Urine Ketones Negative, Urine Occult Blood 10 H, Urine Nitrite Negative, Urine Bilirubin Negative, Urine Urobilinogen Normal, Ur Leukocyte Esterase Negative, Urine RBC 0 SEEN, Urine WBC 0 SEEN, Ur Squamous Epith Cells 5-10 SEEN, Urine Bacteria 0 SEEN, Urine Mucus 0 SEEN Current Medications Acetaminophen (Tylenol) 650 mg PO Q6H PRN PRN PRN Reason: Pain Score 1-10/Temp > 100.7 F Hydrocodone Bitart/Acetaminophen ([place] 5mg-325mg) 1 tablet PO Q6H PRN PRN PRN Reason: Pain Score 1-10/10 Last Admin: 03/05/20 16:42 Dose: 1 tablet Documented by: Bupropion HCl (Wellbutrin Sr (150mg Tablets)) 150 mg PO DAILY [place] Sodium Chloride () 250 mls @ 15 mls/hr IV .[id number] PRN PRN Reason: Saline Flush Sodium Chloride () 250 mls @ 15 mls/hr IV .[id number] PRN PRN Reason: Additional IVPB Infusion Sodium Chloride () 1,000 mls @ 100 mls/hr IV .Q10H [place] Last Admin: 03/05/20 15:21 Dose: 100 mls/hr Documented by: Meclizine HCl (Antivert) 25 mg PO TID PRN PRN PRN Reason: Dizziness Last Admin: 03/05/20 15:24 Dose: 25 mg Documented by: Melatonin (Melatonin) 3 mg PO QHS PRN PRN PRN Reason: INSOMNIA Naproxen (Naprosyn) 500 mg PO DAILYCM [place] Ondansetron HCl (Zofran) 4 mg IV Q8H PRN PRN PRN Reason: NAUSEA/VOMITING Pravastatin Sodium (Pravachol) 10 mg PO QHS [place] Sodium Chloride () 10 - 40 ml IV UD PRN PRN Reason: SALINE FLUSH Addendum: Dr. Kirkland I personally examined the patient and reviewed the chart. I agree with the above. 45-year-old female with a history of fibromyalgia presents with vertigo that started this morning. She presented to the ER at around 4 AM with vertigo whenever she turns her head to the right. She does have a history of otorrhea out of the left ear but nothing of the right. She also denies any tinnitus or recent viral infection. She has been having some bad allergies but otherwise nothing out of the ordinary. She does not have any signs of ataxia and the CT of her brain was unremarkable. Very low suspicion for stroke. We will continue with meclizine and monitor. Unfortunately by the time I evaluated her she had eaten and therefore I did not want to risk any nausea or emesis while performing the Kiesha maneuver. OBSV E&M: [id number] Initial observation care L2
[2020-03-05] MEDS: 0.9% Normal Saline 1,000 ML 100 ML IV (15:21)
[2020-03-05] MEDS: HYDROcodone Bitartrate/Apap 5/325 Tablet PO (16:42)
[2020-03-05] MEDS: Pravastatin 20 MG Tablet 10 MG PO (21:31)
[2020-03-06] MEDS: 0.9% Normal Saline 1,000 ML 100 ML IV ×2 (00:56→11:23)
[2020-03-06 01:57] VITALS: BP 112/64; PULSE 65; RESP 16; TEMP 36.9; O2SAT 98
[2020-03-06] MEDS: Meclizine HCl 25 MG Tablet PO ×2 (07:16→14:59)
[2020-03-06 07:31] VITALS: BP 101/60; PULSE 57; RESP 16; TEMP 36.4; O2SAT 99
[2020-03-06] MEDS: buPROPion (SR) 150 MG Tablet.SA PO (08:37)
[2020-03-06] MEDS: Naproxen 500 MG Tablet PO (08:37)
--- NOTE | 2020-03-06 11:35 | PN_ITS ---
Patient Problems: Active and Suspected Problems (Last Updated 08/19/17 @ 14:53 by Liliana Vick) Peripheral vertigo involving right ear (Acute) Reason for Visit: vertigo Subjective: Still feels dizzy, though better today. Was able to ambulate to BR, but felt off afterwards. She has never had dizziness like this before. Vitals/I&O's: Vital Signs Temp Pulse Resp BP Pulse Ox 36.4 C L 57 L 16 101/60 99 03/06/20 07:31 03/06/20 07:31 03/06/20 07:31 03/06/20 07:31 03/06/20 07:31 Oxygen Delivery Method Room Air Weight: 84.595 kg Body Mass Index (BMI) 34.1 Intake and Output for Last 24 Hours 03/04/20 03/05/20 03/06/20 23:59 23:59 23:59 Intake Total 400 / 400 1958.33 / 1958.33 Output Total 1100 / 1100 600 / 600 Balance -700 / -700 1358.33 / 1358.33 General: Alert, No apparent distress HEENT: Atraumatic, Normocephalic, - - no nystagmus. Neck: No Nodes, Thyroid Normal Size and Texture Lungs: Clear to auscultation, Normal air movement, No rhonchi, No wheeze Cardiovascular: Regular rate, Regular Rhythm, Normal S1, Normal S2, No murmurs Abdomen: Bowel Sounds Present, Soft, Non Tender, Non-Distended, No Hepato- splenomegaly Extremities: No edema, No Calf Tenderness Skin: No rashes, No breakdown Psych/Mental Status: Appropriate, Flat Affect Laboratory Results 03/05/20 11:40: WBC 6.4, RBC 4.80, Hgb 14.1, Hct 43.4, MCV 90.4, MCH 29.4, MCHC 32.5, RDW Std Deviation 41.8, RDW Coeff of [place] 12.7, Plt Count 332, MPV 9.1, Immature Gran % (Auto) 0.200, Neut % (Auto) 58.7, Lymph % (Auto) 36.3, [place] % (Auto) 4.4, Eos % (Auto) 0.2, Baso % (Auto) 0.2, Absolute Neuts (auto) 3.8, Absolute Lymphs (auto) 2.32, Nucleated RBC % 0 03/05/20 11:40: Sodium 137, Potassium 3.8, Chloride 105, Carbon Dioxide 29.0, Anion Gap 3 L, BUN 13, Creatinine 0.65, Estim Creat Clear Calc 86.44, Est GFR (MDRD) Af Amer 126, Est GFR (MDRD) Non-Af 104, BUN/Creatinine Ratio 19.9, Glucose 87, Calcium 9.0, Total Bilirubin 0.40, AST 21, ALT 28, Alkaline Phosphatase 96, Total Protein 8.0, Albumin 3.6, Globulin 4.4 H, Albumin/Globulin Ratio 0.8 L 03/05/20 11:40: Serum , Qual NEGATIVE 03/05/20 12:40: Urine Color Yellow, Urine Clarity Clear, Urine pH 6.0, Ur Specific [place] 1.010, Urine Protein Negative, Urine Glucose (UA) Normal, Urine Ketones Negative, Urine Occult Blood 10 H, Urine Nitrite Negative, Urine Bilirubin Negative, Urine Urobilinogen Normal, Ur Leukocyte Esterase Negative, Urine RBC 0 SEEN, Urine WBC 0 SEEN, Ur Squamous Epith Cells 5-10 SEEN, Urine Bacteria 0 SEEN, Urine Mucus 0 SEEN Current Medications Acetaminophen (Tylenol) 650 mg PO Q6H PRN PRN PRN Reason: Pain Score 1-10/Temp > 100.7 F Hydrocodone Bitart/Acetaminophen ([place] 5mg-325mg) 1 tablet PO Q6H PRN PRN PRN Reason: Pain Score 1-10/10 Last Admin: 03/05/20 16:42 Dose: 1 tablet Documented by: Bupropion HCl (Wellbutrin Sr (150mg Tablets)) 150 mg PO DAILY [facility] Last Admin: 03/06/20 08:37 Dose: 150 mg Documented by: Sodium Chloride () 250 mls @ 15 mls/hr IV .[id number] PRN PRN Reason: Saline Flush Sodium Chloride () 250 mls @ 15 mls/hr IV .[id number] PRN PRN Reason: Additional IVPB Infusion Sodium Chloride () 1,000 mls @ 100 mls/hr IV .Q10H [facility] Last Admin: 03/06/20 11:23 Dose: 100 mls/hr Documented by: Meclizine HCl (Antivert) 25 mg PO TID PRN PRN PRN Reason: Dizziness Last Admin: 03/06/20 07:16 Dose: 25 mg Documented by: Melatonin (Melatonin) 3 mg PO QHS PRN PRN PRN Reason: INSOMNIA [facility] Last Admin: 03/06/20 08:37 Dose: 500 mg Documented by: Ondansetron HCl (Zofran) 4 mg IV Q8H PRN PRN PRN Reason: NAUSEA/VOMITING Pravastatin Sodium (Pravachol) 10 mg PO QHS [facility] Last Admin: 03/05/20 21:31 Dose: 10 mg Documented by: Sodium Chloride () 10 - 40 ml IV UD PRN PRN Reason: SALINE FLUSH Medical Necessity - Tobacco Use Smoking Status: Never smoker Tobacco Use: Non-smoker Assessment/Plan All Active Problems (Last Updated 08/19/17 @ 14:53 by Liliana Vick) Peripheral vertigo involving right ear (Acute) Sinusitis (Resolved) 1. vertigo * improving, but ongoing * suspect BPPV as symptoms are abating * PT eval for vestibular therapy * PRN meclizine OBSV E&M: 65031 Subsequent observation care L2
[2020-03-06 11:59] VITALS: BP 105/63; PULSE 77; RESP 16; TEMP 37; O2SAT 99
[2020-03-06 14:06] VITALS: BP 137/77; PULSE 89; RESP 16; TEMP 37.1; O2SAT 100
--- NOTE | 2020-03-06 15:37 | DCINST_ITS ---
- Discharge Diagnoses Current Active Problems: Current Active and Chronic Problems (Last Updated 08/19/17 @ 14:53 by Liliana Vick) Peripheral vertigo involving right ear (Acute) Hyperlipidemia (Chronic) You will use the following diet at home:: No restrictions Your food should be the consistency of: Regular Your liquids should be the consistency of: Regular/Thin Discharge Activity: Return to Normal Activity Call your doctor if you observe: - - worsening dizziness Instructions: ED BPV Vertigo, ED Vertigo Unspecified Allergies/Adverse Reactions: Allergies gabapentin [From Neurontin] Adverse Reaction (Verified 03/05/20 04:31) Upset Stomach venlafaxine [From Effexor] Adverse Reaction (Verified 03/05/20 04:31) Unknown Medications to take at Discharge Alprazolam 0.5 mg PO TID PRN 11/24/16 pravastatin 10 mg tablet 10 mg PO QHS 08/19/17 Bupropion HCl [Bupropion HCl Sr] 150 mg pe PO DAILY 09/04/18 Hydrocodone/Acetaminophen [Hydrocodone-Acetamin 5-325 mg] 1 tab PO Q6H PRN PRN 09/04/18 Naproxen 500 mg PO DAILY 09/04/18 Meclizine HCl [Antivert] 25 mg PO Q8H PRN #16 tab 03/05/20 proMETHazine tablet [Phenergan tablet] 25 mg PO Q6H PRN PRN #20 tab 03/05/20 Meclizine HCl [Antivert] 25 mg PO TID PRN PRN #20 tab 03/06/20 The following prescriptions were given: Meclizine HCl [Antivert] 25 mg PO Q8H PRN #16 tab PRN Reason: Vertigo Transmission Status: [id number] Meclizine HCl [Antivert] 25 mg PO TID PRN PRN #20 tab PRN Reason: Dizziness Transmission Status: Pending to [id number] proMETHazine tablet [Phenergan tablet] 25 mg PO Q6H PRN PRN #20 tab PRN Reason: nausea/vomiting/vertigo Transmission Status: Received by [id number] Orders to be completed after discharge: Physical Therapy Evaluation Location: None Selected Primary Care Physician: Juancarlos Pickett MD [STAFF PHYSICIAN] - 3-5 Days if not improving Rubio Still MD [Primary Care Provider] - Test Results: Test results from this visit will be discussed in further detail at your follow- up appointment, if applicable. Proposed Discharge Date: 03/06/20
--- NOTE | 2020-03-06 15:39 | DS.PCM_ITS ---
Discharge Date and Diagnosis - Problem List Patient Problems: Active and Suspected Problems (Last Updated 08/19/17 @ 14:53 by Liliana Vick) Peripheral vertigo involving right ear (Acute) Date of Admission: 03/05/20 Date of Discharge: 03/06/20 - Primary Discharge Diagnosis Acute Problems: Active Problems (Last Updated 08/19/17 @ 14:53 by Liliana Vick) Peripheral vertigo involving right ear (Acute) - Secondary Discharge Diagnosis Chronic Problems: Chronic Problems (Last Updated 08/19/17 @ 14:53 by Liliana Vick) Fibromyalgia (Chronic) Hyperlipidemia (Chronic) Hospital Course and Treatment Imaging Results: Clinical Impression(s) from Imaging Studies Brain CT 03/05/20 11:11 IMPRESSION: Normal unenhanced CT scan of the brain. Electronically Signed: Callum Stewart MD at 11:38 EDT , Service support , Operations: None Procedures: None Summary of Care Provided: The patient is a 45 year old F presents with acute onset of vertigo. Patient had change with position got worse. Was present to the emergency room and had a head CT that was unremarkable. [place] he wants to go home so subsequently admitted. Symptoms did improved but not completely resolved. Was seen by physical therapy recommended outpatient vestibular therapy. Patient is feeling well enough to go home though still dizzy. Patient received prescription for meclizine to help with symptoms as well as a prescription to follow-up outpatient therapy for vestibular rehab. Patient is discharged in stable condition. [] Patient Problems: Active and Suspected Problems (Last Updated 08/19/17 @ 14:53 by Liliana Vick) Peripheral vertigo involving right ear (Acute) - Physical Exam Vitals/I&O's: Vital Signs Temp Pulse Resp BP Pulse Ox 37.1 C 89 16 137/77 H 100 03/06/20 14:06 03/06/20 14:06 03/06/20 14:06 03/06/20 14:06 03/06/20 14:06 Oxygen Delivery Method Room Air Weight: 84.595 kg Body Mass Index (BMI) 34.1 Intake and Output for Last 24 Hours 03/04/20 03/05/20 03/06/20 23:59 23:59 23:59 Intake Total 400 / 400 2508.33 / 2508.33 Output Total 1100 / 1100 600 / 600 Balance -700 / -700 1908.33 / 1908.33 Current Medications Acetaminophen (Tylenol) 650 mg PO Q6H PRN PRN PRN Reason: Pain Score 1-10/Temp > 100.7 F Hydrocodone Bitart/Acetaminophen ([place] 5mg-325mg) 1 tablet PO Q6H PRN PRN PRN Reason: Pain Score 1-10/10 Last Admin: 03/05/20 16:42 Dose: 1 tablet Documented by: Bupropion HCl (Wellbutrin Sr (150mg Tablets)) 150 mg PO DAILY [facility] Last Admin: 03/06/20 08:37 Dose: 150 mg Documented by: Sodium Chloride () 250 mls @ 15 mls/hr IV .[id number] PRN PRN Reason: Saline Flush Sodium Chloride () 250 mls @ 15 mls/hr IV .[id number] PRN PRN Reason: Additional IVPB Infusion Sodium Chloride () 1,000 mls @ 100 mls/hr IV .Q10H [facility] Last Admin: 03/06/20 11:23 Dose: 100 mls/hr Documented by: Meclizine HCl (Antivert) 25 mg PO TID PRN PRN PRN Reason: Dizziness Last Admin: 03/06/20 14:59 Dose: 25 mg Documented by: Melatonin (Melatonin) 3 mg PO QHS PRN PRN PRN Reason: INSOMNIA [facility] Admin: 03/06/20 08:37 Dose: 500 mg Documented by: Ondansetron HCl (Zofran) 4 mg IV Q8H PRN PRN PRN Reason: NAUSEA/VOMITING Pravastatin Sodium (Pravachol) 10 mg PO QHS [facility] Last Admin: 03/05/20 21:31 Dose: 10 mg Documented by: Sodium Chloride () 10 - 40 ml IV UD PRN PRN Reason: SALINE FLUSH Discharge Diet: No Restrictions Discharge Activity: Return to Normal Activity Call your doctor if you observe: - - worsening dizziness Home Medications: Medications to take at Discharge Alprazolam 0.5 mg PO TID PRN 11/24/16 pravastatin 10 mg tablet 10 mg PO QHS 08/19/17 Bupropion HCl [Bupropion HCl Sr] 150 mg pe PO DAILY 09/04/18 Hydrocodone/Acetaminophen [Hydrocodone-Acetamin 5-325 mg] 1 tab PO Q6H PRN PRN 09/04/18 Naproxen 500 mg PO DAILY 09/04/18 Meclizine HCl [Antivert] 25 mg PO Q8H PRN #16 tab 03/05/20 proMETHazine tablet [Phenergan tablet] 25 mg PO Q6H PRN PRN #20 tab 03/05/20 Meclizine HCl [Antivert] 25 mg PO TID PRN PRN #20 tab 03/06/20 Following Prescrptions Were Given to Patient: Meclizine HCl [Antivert] 25 mg PO Q8H PRN #16 tab PRN Reason: Vertigo Transmission Status: Received by [id number] Meclizine HCl [Antivert] 25 mg PO TID PRN PRN #20 tab PRN Reason: Dizziness Transmission Status: Pending to [id number] proMETHazine tablet [Phenergan tablet] 25 mg PO Q6H PRN PRN #20 tab PRN Reason: nausea/vomiting/vertigo Transmission Status: Received by [id number] Other Amb Orders: Physical Therapy Evaluation Location: None Selected Primary Care Physician: Juancarlos Pickett MD [STAFF PHYSICIAN] - 3-5 Days if not improving Rubio Still MD [Primary Care Provider] - Patient Instructions: ED BPV Vertigo, ED Vertigo Unspecified Disposition: Home Minutes spent on discharge:: 32 Patient Condition:: Good Medical Necessity - Tobacco Use Smoking Status: Never smoker Tobacco Use: Non-smoker Meaningful Use Info Meaningful Use Diagnoses (Choose all that apply): None applicable OBSV E&M: 21945 Observation care discharge
== END 2020-03-06 16:30 | disposition home or self-care (01) ==
LOC: ED 06:26 → MS3 14:13
PROVIDERS: Emergency Medicine; Admitting Provider Family Medicine; Emergency Provider Emergency Medicine; PCP Family Medicine
DX: H81.391 Other peripheral vertigo, right ear (principal); M79.7 Fibromyalgia; J01.10 Acute frontal sinusitis, unspecified; E78.5 Hyperlipidemia, unspecified; G89.29 Other chronic pain; Z79.899 Other long term (current) drug therapy; F32.9 Major depressive disorder, single episode, unspecified; F41.9 Anxiety disorder, unspecified
CPT/HCPCS: 70450; 80053; 81001; 84703; 85025; 96360; 96361; 96372; 97161; 99218; 99283; J7030; G0378

== ENCOUNTER → 2020-03-26 15:01 | Outpatient (CLI) | payer BC, SELFPAY ==
[2020-03-05 14:56] VITALS: BMI 34.1
--- NOTE | 2020-03-26 | ECC_PTH ---
PATIENT: MIKAELA RAMIREZ LOC: [facility] U#:[id number] AGE/SX: 50/F ROOM: RE03/26/[address]: Dr. Yomi Gandhi MD : 1975 BED: DIS: SPEC #: [id number] RECD: 03/26/20 15:32 STATUS: KENIA ALBERTOJose J #: [id number] HERIBERTO: 03/26/20 00:[address]: Yomi Gandhi DEPT: SURGICAL PATHOLOGY RECD BY: Alexsander Narvaez ENTERED: 03/27/20 09:28 SP TYPE: ECC OTHR DR: Dr. Rubio Still MD Tissues: Endocervical Procedures: Surgery Specimen Level IV HEADER OPERATION: ECC PRE-OP DIAGNOSIS: D06.9 TISSUE SUBMITTED: ECC MICROSCOPIC DIAGNOSIS ECC: Fragments of benign ecto- and endocervical epithelium, blood and mucous, negative for dysplasia. SJ:cassie 03/28/20 COMMENT Please make reference to previous specimens ([id number]) cervix, 3 o'clock, biopsy with diagnosis of mild, moderate and severe squamous dysplasia with HP changes and ECC with diagnosis of detached and unoriented fragments of squamous epithelium with moderate to severe dysplasia and ([id number]) ectocervix, LEEP conization and endocervix, LEEP conization with diagnosis of severe squamous dysplasia and (A84-0781) ECC with diagnosis of fragments of benign ecto- and endocervical mucosa with chronic inflammation and squamous metaplasia and negative for dysplasia and (S20-615) endocervix, curettings with diagnosis of strips of benign superficial endocervix and scant squamous metaplastic tissue and no evidence of dysplasia. MICROSCOPIC DESCRIPTION Slides are reviewed. GROSS DESCRIPTION Received in fixative is one container labeled with the patient's name and designated ECC. The specimen consists of multiple fragments of hemorrhagic soft tissue mixed with mucoid tissue that in aggregate measure 2 x 2 x 0.2 cm. The specimen is totally submitted in one cassette. / SJ:rg 03/27/20 TC:4 CPT: 22467
[2020-04-01 20:52] LABS: HPV Reflexed? NOT INDICATED
== END ==
PROVIDERS: PCP Family Medicine; Visit Provider Obstetrics & Gynecology
DX: D06.9 Carcinoma in situ of cervix, unspecified (principal); Z12.4 Encounter for screening for malignant neoplasm of cervix
CPT/HCPCS: 88175; 88305; G0145

== ENCOUNTER → 2020-07-25 13:09 | Outpatient (CLI) | payer BC, SELFPAY ==
[2020-03-05 14:56] VITALS: BMI 34.1
--- NOTE | 2020-07-25 13:13 | CT_ITS ---
STUDY: CT SOFT TISSUE NECK WITH CONTRAST REASON FOR EXAM: Female, 45 years old. LEFT NECK MASS MARKED WITH BB RADIATION DOSAGE (If Supplied By Facility): CTDIvol = ( 12.23 ) mGy, DLP = ( 297.58 ) mGycm TECHNIQUE: The patient was scanned in a multi-detector CT scanner. High resolution transaxial imaging was performed following intravenous administration of IV 75ML ISOVUE 300. Sagittal and coronal images were reconstructed. Individualized dose optimization techniques were used for this CT. COMPARISON: None. FINDINGS: The palpable abnormality corresponds to the posterior tibial portion of the left parotid gland. The left parotid gland is slightly larger than the right. Normal bilateral welfare worker spaces. Normal bilateral parapharyngeal spaces. Normal bilateral carotid spaces. Normal bilateral sublingual and submandibular glands and spaces. Normal visualized nasopharynx. Normal retropharyngeal space. Normal perivertebral space. Normal visualized bilateral faucial tonsils. The visualized tongue, tongue base and oropharynx are normal. The visualized cervical lymph nodes (levels I-) are within normal size limits, and maintain normal morphology. There is no demonstrated solid or cystic mass lesion. There is no abnormal contrast enhancement. Normal epiglottis, bilateral vallecula and hypopharynx. The pre-epiglottic and paraglottic adipose spaces are normal. Normal visualized bilateral piriform sinuses, aryepiglottic folds, vocal cords, and arytenoid-cricoid articulations. Normal subglottic trachea. Normal bilateral lobes of the thyroid gland. Normal visualized pulmonary apices. Normal visualized paranasal sinuses. Normal visualized cervical spine. CT/Soft Tissue Neck WITH Contrast IMPRESSION: Mild enlargement of the left parotid gland. Electronically Signed: Alex Sanchez, at 14:32 EST , Service support ,
== END ==
PROVIDERS: PCP Family Medicine; Referring Provider Otolaryngology; Visit Provider Otolaryngology
DX: R22.1 Localized swelling, mass and lump, neck (principal)
CPT/HCPCS: 70491; Q9967

== ENCOUNTER → 2020-10-02 13:28 | Outpatient (CLI) | payer BC, SELFPAY ==
[2020-03-05 14:56] VITALS: BMI 34.1
[2020-10-05 00:29] LABS: HPV APTIMA, High Risk Negative (Negative); HPV Reflexed? NOT INDICATED
== END ==
PROVIDERS: PCP Family Medicine; Visit Provider Obstetrics & Gynecology
DX: Z12.4 Encounter for screening for malignant neoplasm of cervix (principal)
CPT/HCPCS: 88175; G0145

== ENCOUNTER → 2020-10-08 10:55 | Outpatient (CLI) | payer BC, SELFPAY ==
[2020-03-05 14:56] VITALS: BMI 34.1
--- NOTE | 2020-10-08 10:57 | BI_ITS ---
MAMMOGRAPHY - BILATERAL SCREENING REASON FOR EXAM: Female, 45 years old. Routine annual screening examination. PERTINENT HISTORY: Aunt with breast cancer. TECHNIQUE: Digital bilateral breast james (3D mammographic acquisition) in the CC and MLO projections. 2-D mediolateral oblique (MLO) and craniocaudad (CC) views of both breasts were obtained. CAD: Full Field Digital Mammography with Computer Added Detection was performed. COMPARISON: Comparison is made with prior study dated 09/25/2018. FINDINGS: Breast Composition: The breasts are heterogeneously dense, which may obscure small masses. There are no dominant masses or suspicious calcifications. No other significant abnormalities are identified. There has been no significant change since the prior study. BI/SCRN MAMM (CAD)W/JAMES BILAT IMPRESSION: Stable bilateral screening mammogram. Yearly follow-up mammogram recommended. (A) ASSESSMENT CATEGORY: BIRADS Category 1: Negative. A letter regarding these results will be sent to the patient by the facility within 30 days. Approximately 10% of breast cancers are not detected by mammography. A normal mammogram should not delay biopsy of a clinically suspicious abnormality. [id number] Electronically Signed: Alex Sanchez MD at 12:31 EST , Service support ,
== END ==
PROVIDERS: Referring Provider Obstetrics & Gynecology; Visit Provider Obstetrics & Gynecology
DX: Z12.31 Encounter for screening mammogram for malignant neoplasm of breast (principal)
CPT/HCPCS: 77063; 77067

== ENCOUNTER → 2021-02-10 15:28 | Outpatient (CLI) | payer BC, SELFPAY ==
[2020-03-05 14:56] VITALS: BMI 34.1
[2021-02-10 17:35] LABS: Free T3 2.6 pg/mL (2.18-3.98); T4 Free Direct 0.93 ng/dL (0.76-1.46); Thyroid Stim Hormone (TSH) 2.18 uIU/mL (0.358-3.74)
== END ==
PROVIDERS: PCP Family Medicine; Referring Provider Family Medicine; Visit Provider Family Medicine
DX: E03.9 Hypothyroidism, unspecified (principal)
CPT/HCPCS: 36415; 84439; 84443; 84481

== ENCOUNTER 2021-12-04 10:07 | Emergency (ER) | payer OTHER, SELFPAY ==
[2021-12-04 10:09] VITALS: BP 112/80; PULSE 93; RESP 16; TEMP 36.3; O2SAT 95; BMI 29.5
--- NOTE | 2021-12-04 10:11 | EDS_ITS ---
HPI History of Present Illness Chief Complaint: General Illness Detail of Chief Complaint: Upset stomach and achy Informant: patient Onset/Context/Timing Onset: Yesterday Context: Sudden Onset Timing: Continuous (Achy) and Intermittent (Upset stomach) Quality: Patient reports upset stomach after taking doxycycline. Location: GI and generalized Current Severity: Uncertain Maximum Severity: Severe Worsened by: Nothing that the patient is aware of Relieved by: Nothing Associated Symptoms Associated Symptoms: No other symptoms Narrative Narrative: Patient is a 46-year-old woman who had surgery by Dr. Samuels. She was seen yesterday by Dr. Samuels. He was concerned the incision sites were infected. She was prescribed doxycycline. She has had no fever, chills night sweats. The nausea and upset stomach started after taking doxycycline. She was unaware that she should drink with a full glass of water. She also complains of aching. She has no other complaints. She does have history of aching from fibromyalgia based on prior records. Prior similar symptoms: No Recent Illness/Hospitalization: Yes [facility] Medical History Back pain Fatigue Fibromyalgia Hemorrhoids Migraines Shoulder pain Home Medications alprazolam 0.5 mg PO TID PRN 11/24/16 [History Last Taken Unknown] pravastatin 10 mg tablet 10 mg PO QHS 08/19/17 [History Last Taken Unknown] Bupropion Hcl [Bupropion Hcl Sr] 150 mg pe PO DAILY 09/04/18 [History Last Taken Unknown] hydrocodone-acetaminophen 1 tab PO Q6H PRN PRN 09/04/18 [History Last Taken Unknown] naproxen 500 mg PO DAILY 09/04/18 [History Last Taken Unknown] meclizine 25 mg PO Q8H PRN #16 tab 03/05/20 [Rx Last Taken Unknown] promethazine 25 mg PO Q6H PRN PRN #20 tab 03/05/20 [Rx Last Taken Unknown] meclizine 25 mg PO TID PRN PRN #20 tab 03/06/20 [Rx Last Taken Unknown] Allergy/AdvReac Type Severity Reaction Status Date / Time gabapentin [From Neurontin] AdvReac Upset Verified 12/04/21 10:13 Stomach venlafaxine [From Effexor] AdvReac Unknown Verified 12/04/21 10:13 Surgical History H/O foot surgery H/O removal of cyst Hx of cholecystectomy Social History (Updated 12/04/21 @ 10:[address] Asim Morris MD) household members: spouse Smoking Status: Never smoker alcohol intake: never substance use type: does not use ROS ROS ED Constitutional Constitutional ED: Denies chills, fever(s), subjective, sweats or weight loss Gastrointestinal Gastrointestinal: Reports nausea; Denies abdominal pain, diarrhea or vomiting Musculoskeletal Musculoskeletal: Reports other Details: Achiness ; Denies arthralgias, back pain, myalgias or neck pain Integumentary Reports rash; Denies abscess or Abrasions EXAM Physical Exam Const Positive well nourished and well developed General Appearance ED: well developed and NAD; Negative for cyanotic, diaphoretic or pallor Eyes PERRL and EOMs intact bilaterally General Eye ED: Negative for pale conjunctiva Neck supple Resp normal respiratory effort Cardio regular rate and regular rhythm Back/Spine no CVA tenderness Cervical Spine: Negative for cervical spine tenderness Thoracic Spine / Upper Back: Negative for thoracic spinal tenderness or paraspinal muscle tenderness Extremity Negative for normal to inspection Extremity Narrative: There is pain out of proportion to light tactile stimulus. The incision sites are intact. There is no erythema, warmth, induration or fluctuance. There is no lymphangitis. DP pulse and PT pulse are palpable. Patient expressed discomfort when her toe was slightly dorsiflexed. This was performed when I remove the Band-Aid. General Extremety ED: Yes tenderness; Negative for edema General Extremity: Negative for edema Neuro oriented x3, CN's II-XII intact bilaterally and no sensory deficits noted Sensorium / Orientation: alert Motor Exam: strength 5/5 throughout Psych Appearance: other Affect is flat Skin No skin turgor normal General Skin Exam: Negative for jaundice or pallor MDM MDM MDM Narrative Medical decision making narrative: Patient presents with adverse reaction to doxycycline. Suspect aching is due to fibromyalgia. Patient was instructed to drink a glass of water with the doxycycline. And at this point the incisions look unremarkable with no evidence of infection. Discharge Plan Triage Chief Complaint: General Illness ED Provider: Asim Morris Dx/Rx/DC Orders Clinical Impression: Drug side effects, Fibromyalgia, Post-op pain Prescriptions: No Action pravastatin 10 mg tablet 10 mg PO QHS RF: 0 alprazolam 0.5 MG tablet 0.5 mg PO TID PRN (Reason: Anxiety) RF: 0 hydrocodone-acetaminophen 1 EACH tablet 1 tab PO Q6H PRN PRN (Reason: Pain) RF: 0 naproxen 500 tablet 500 mg PO DAILY RF: 0 Bupropion Hcl [Bupropion Hcl Sr] 150 MG Tab.Sr.12h 150 mg pe PO DAILY RF: 0 meclizine 25 MG tablet 25 mg PO Q8H PRN (Reason: Vertigo) Qty: 16 RF: 0 promethazine 25 MG tablet 25 mg PO Q6H PRN PRN (Reason: nausea/vomiting/vertigo) Qty: 20 RF: 0 meclizine 25 MG tablet 25 mg PO TID PRN PRN (Reason: Dizziness) Qty: 20 RF: 0 Primary Care Provider: Deann Ryan Referrals: Deann Ryan MD [Primary Care Provider] - Doctor,Surgeon, [STAFF PHYSICIAN] - Keep Jackie appointment Activity Restrictions/Additional Instructions: You should drink a full 8 to 12 ounce glass of water when you take the doxycycline to minimize the nausea/indigestion. Disposition Disposition: Home, Self Care
[2021-12-04 10:12] VITALS: BP 112/80; PULSE 93; RESP 16; TEMP 36.3; O2SAT 95
== END 2021-12-04 11:10 | disposition home or self-care (01) ==
PROVIDERS: Emergency Provider Emergency Medicine; PCP Family Medicine; Visit Provider Emergency Medicine
DX: R10.9 Unspecified abdominal pain (principal); R11.0 Nausea; M79.7 Fibromyalgia; G89.18 Other acute postprocedural pain; T36.4X5A Adverse effect of tetracyclines, initial encounter; Z79.899 Other long term (current) drug therapy
CPT/HCPCS: 99282

== ENCOUNTER → 2022-09-01 | Outpatient (CLI) | payer OTHER, SELFPAY ==
--- NOTE | 2022-09-01 09:45 | BI_ITS ---
MAMMOGRAPHY - BILATERAL SCREENING REASON FOR EXAM: Female, 47 years old. Routine annual screening examination. PERTINENT HISTORY: Aunt with breast cancer. TECHNIQUE: Digital bilateral breast james (3D mammographic acquisition) in the CC and MLO projections. 2-D mediolateral oblique (MLO) and craniocaudad (CC) views of both breasts were obtained. CAD: Full Field Digital Mammography with Computer Added Detection was performed. COMPARISON: Comparison is made with prior study dated 10/08/2020 and 09/25/2018. FINDINGS: Breast Composition: The breasts are heterogeneously dense, which may obscure small masses. There are no dominant masses or suspicious calcifications. No other significant abnormalities are identified. There has been no significant change since the prior study. BI/SCRN MAMM (CAD)W/JAMES BILAT IMPRESSION: Stable bilateral screening mammogram. Yearly follow-up mammogram recommended. (A) ASSESSMENT CATEGORY: BIRADS Category 1: Negative. A letter regarding these results will be sent to the patient by the facility within 30 days. Approximately 10% of breast cancers are not detected by mammography. A normal mammogram should not delay biopsy of a clinically suspicious abnormality. [id number] Electronically Signed: Alex Sanchez MD at 10:47 EST ,
== END | disposition home or self-care (01) ==
LOC: OPBI 09:43
PROVIDERS: PCP Family Medicine; Visit Provider Student in an Organized Health Care Education/Training Program
DX: Z12.31 Encounter for screening mammogram for malignant neoplasm of breast (principal); Z80.3 Family history of malignant neoplasm of breast
CPT/HCPCS: 77063; 77067

== ENCOUNTER 2022-11-02 11:06 | Outpatient (CLI) | payer OTHER, SELFPAY ==
[2022-11-07 13:37] LABS: HPV APTIMA, High Risk Negative (Negative)
== END 2022-11-02 23:59 | disposition home or self-care (01) ==
LOC: LABSPEC 11:08
PROVIDERS: PCP Family Medicine; Visit Provider Student in an Organized Health Care Education/Training Program
DX: Z12.4 Encounter for screening for malignant neoplasm of cervix (principal)
CPT/HCPCS: 87624; 88175; G0145

== ENCOUNTER → 2024-09-17 | Outpatient (CLI) | payer BC, SELFPAY ==
--- NOTE | 2024-09-17 09:29 | MRI_ITS ---
PROCEDURE: Noncontrast MRI of the right knee. REASON FOR EXAM: Medial right knee pain. Evaluate for meniscal tear TECHNIQUE: Multiplanar, multisequence MRI images of the right knee were obtained without IV contrast. COMPARISON: None available FINDINGS No acute fracture or dislocation of the right knee. No focal abnormal marrow replacement process. The patellar ligament and included distal quadriceps tendon are intact. There is a small amount of joint fluid, without sizeable joint effusion. No loose intra-articular body. No soft tissue mass or drainable fluid collection of the right knee. No evidence of transient patellar dislocation. The patellar retinacula and popliteus muscle/tendon are intact. No sizable popliteal cyst. The cruciate and collateral ligaments are intact. Mild articular cartilage thinning of the medial and lateral compartments, without focal high-grade chondral defect or osteochondral lesion. There is mild articular cartilage thinning of the patellar apex. There is slight lateral patellar tilt. The lateral meniscus is intact. There is some heterogeneous increased intrasubstance signal of the posterior horn medial meniscus, without discrete meniscal tear. The posterior root attachments are intact. No flipped meniscal fragment. MRI/Lower Ext Joint Only (Routine) IMPRESSION: No acute bony abnormality of the right knee. No internal ligamentous derangement or sizable joint effusion. No lateral meniscal tear. There is some heterogeneous intrasubstance signal of the posterior horn medial meniscus, which could be due to meniscal degeneration or contusion. No flipped meniscal fragment. Mild tricompartmental degenerative changes. Reading Location: [facility]
== END | disposition home or self-care (01) ==
PROVIDERS: PCP Family Medicine; Referring Provider Orthopaedic Surgery Sports Medicine; Visit Provider Orthopaedic Surgery Sports Medicine
DX: M25.561 Pain in right knee (principal)
CPT/HCPCS: 73721

== ENCOUNTER → 2025-01-03 | Outpatient (CLI) | payer BC, SELFPAY ==
--- NOTE | 2025-01-03 06:49 | MRI_ITS ---
PROCEDURE: SPINE LUMBAR (ROUTINE) 01/03/2025 REASON FOR EXAM: PAIN TECHNIQUE: Multiplanar and multisequence images were obtained without IV contrast administration. COMPARISON: Lumbar spine series of 11/20/2024. FINDINGS: Vertebrae: Multilevel lumbar degenerative disc disease is again seen, with mild disc narrowing L3-L4, moderate to moderately severe disc narrowing at L4-L5, and perhaps even mild disc narrowing at L5-S1. Vertebral body endplate reactive changes are seen about the L4-L5 interspace. Alignment: No evidence of spondylolysis or spondylolisthesis. Conus Medullaris: Normal appearance, with tip at the L2 level. L1-2: Unremarkable L2-3: Very mild disk bulge. Mild posterior facet and ligamentum flavum hypertrophy is seen no spinal canal stenosis or neural foraminal narrowing is noted. L3-4: Mild posterior facet and ligamentum flavum hypertrophy is seen. A mild disc bulge is noted slightly greater on the right than the left. No significant degree of spinal canal stenosis or neural foraminal narrowing is seen. L4-5: At this level of greatest degenerative disc disease, superimposed upon a mild disc bulge is seen a moderate-sized right lateral disc protrusion/extrusion. Moderate right neural foraminal narrowing is noted. No significant spinal canal stenosis is seen. L5-S1: A very mild disc bulge is noted. No spinal canal stenosis significant neural foraminal narrowing is noted Sacrum: No acute process is seen, upon very limited evaluation MRI/Spine Lumbar (Routine) IMPRESSION: Multilevel lumbar degenerative disc disease, as described Reading Location: [id number]
== END | disposition home or self-care (01) ==
LOC: OPMRI 07:08
PROVIDERS: PCP Family Medicine; Referring Provider Student in an Organized Health Care Education/Training Program; Visit Provider Student in an Organized Health Care Education/Training Program
DX: M54.16 Radiculopathy, lumbar region (principal); M51.06 Intervertebral disc disorders with myelopathy, lumbar region
CPT/HCPCS: 72148